=== PATIENT | male | born 1930 | race Caucasian/White ===

== ENCOUNTER 2017-05-12 18:18 | Inpatient (IN) ==
[2017-05-12] MEDS ORDERED: Ipratropium/Albuterol Neb 3 ML IH ONE (18:43)
[2017-05-12 19:05] LABS: Basophils % 0.5 %; Eosinophils # 0.1 K/mcL (0.0-0.6); Eosinophils % 0.8 %; Hematocrit 32.4 % (37.5-50.1); Hemoglobin 10.2 g/dL (12.9-16.9); Immature Granulocytes % 0.2 % (0-4); Lymphocytes # 0.6 K/mcL (0.6-4.6); Lymphocytes % 10.8 %; Mean Corpuscular HGB Conc 31.5 g/dL (31.6-35.5); Mean Corpuscular Hemoglobin 25.9 pg (28.0-33.3); Mean Corpuscular Volume 82.2 fL (83.0-100.0); Mean Platelet Volume 8.5 fL (9.4-12.4); Monocytes # 0.7 K/mcL (0.0-1.3); Monocytes % 12.1 %; Neutrophils # 4.5 K/mcL (1.6-8.9); Platelet Count 359 K/mcL (140-400); Red Blood Count 3.94 M/mcL (4.19-5.50); Red Cell Distribution Width 14.1 % (11.5-14.5); Segmented Neutrophils % 75.6 %
[2017-05-12 19:16] LABS: BUN/Creatinine Ratio 18 (6-26); Blood Urea Nitrogen 15 mg/dL (8-26); Calcium 8.7 mg/dL (8.6-10.8); Carbon Dioxide 25 mEq/L (19-29); Chloride 102 mEq/L (98-109); Glucose 113 mg/dL (70-99); Osmolality,Calculated 286 (280-300); Potassium 3.5 mEq/L (3.5-4.5); Sodium 137 mEq/L (136-145); eGFR For African Americans > 60 (> 60); eGFR For Non-African Americans > 60 (> 60)
[2017-05-12] MEDS ORDERED: methylPREDNISolone 125 MG in 0.9 % Sodium Chloride 100 ML IVPB ONE (20:54)
[2017-05-12 21:26] LABS: VBG HCO3 27.7 mEq/L (21-27); VBG PH 7.46 pH Units (7.32-7.42)
--- NOTE | 2017-05-12 21:43 | Emergency Department Note ---
Disposition Clinical Impression: Pulmonary fibrosis Disposition: Admitted As Inpatient [facility] Care Provider[facility] - Forms: ED Satisfaction Letter General Adult HPI - General Chief complaint: ED Shortness of Breath/Dyspnea Stated complaint: MERE Time Seen by Provider: 05/12/17 18:27 Source: patient, family Limitations: no limitations Nursing Notes Reviewed: Yes Vital Signs Reviewed: Yes - History of Present Illness HPI Narrative: 87-year-old male who presents with concern for dyspnea. 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 He admits to 3 days of progressive dyspnea. He presents with hypoxia, required supplemental oxygen, no wheezing or bronchospasm. He denies need for option at home. He has no former option requirements. He admits to some productive sputum with rust colored sputum. Pain Scale: 0 - Related Data Allergies Allergy/AdvReac Type Severity Reaction Status Date / Time No Known Allergies Allergy Verified 05/12/17 18:24 All systems ED: reviewed and negative except as stated. Past Medical History - Past Medical History Medical history: Reports: cancer, CVA - Social History Smoking Status: Never smoker Smokeless Tobacco Status: No Alcohol use: Reports: none Physical Exam - General Limitations: no limitations General appearance: alert, in no apparent distress - Head Head exam: atraumatic - Eye Eye exam: Present: normal appearance, PERRL - ENT ENT exam: normal exam, normal oropharynx - Neck Neck exam: Present: normal inspection, full ROM - Chest Chest inspection: Present: normal inspection - Respiratory Respiratory exam: Present: respiratory distress - Cardiovascular Cardiovascular exam: Present: regular rate, normal rhythm - Abdominal Exam Abdominal exam: Present: soft, Non-Tender - Male exam: Present: normal inspection - Extremities Exam Extremities exam: Present: normal inspection, full ROM - Expanded Lower Extremity Exam Hip/Pelvis exam: Present: normal inspection, full ROM Upper leg exam: Present: normal inspection, full ROM Neurovascular/Tendon exam: Present: normal capillary refill Gait: observed and normal, not tested/not observed - Back Exam Back exam: Present: normal inspection, full ROM - Neurological Exam Neurological exam: Present: alert, oriented X3, CN II-XII intact - Psychiatric Psychiatric exam: Present: normal affect, normal mood - Skin Skin exam: Present: warm, dry Course Vital Signs Temperature 97.7 F 05/12/17 18:24 Pulse Rate 101 05/12/17 18:24 Respiratory Rate 18 05/12/17 18:24 Blood Pressure 144/66 05/12/17 18:24 O2 Sat by Pulse Oximetry 88 05/12/17 18:24 Temperature 97.7 F 05/12/17 18:24 Pulse Rate 101 05/12/17 18:24 Respiratory Rate 16 05/12/17 19:40 Blood Pressure 144/66 05/12/17 18:24 O2 Sat by Pulse Oximetry 92 05/12/17 19:40 Oxygen Delivery Oxygen Delivery Room Air Medical Decision Making - MDM Narrative Medical decision making narrative: Male patient with hypoxia. CT scan shows massive fibrosis. Steroids, Levaquin given for possible superimposed infection. He was given bronchodilators without improvement. His respiratory rate is mildly increased. I will obtain a blood gas, basic laboratory analyses and proceed with admission to stepdown. 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 - Medical Records Medical records reviewed: Yes I reviewed the patient's medical records. - Lab Data Lab results reviewed: Yes I reviewed the patient's lab results. Result diagrams: 05/12/17 18:52 05/12/17 18:52 Lab Results 05/12/17 05/12/17 05/12/17 Range/Units 18:52 18:52 18:52 WBC 6.0 (4.3-11.1) K/mcL RBC 3.94 L (4.19-5.50) M/mcL Hgb 10.2 L (12.9-16.9) g/dL Hct 32.4 L (37.5-50.1) % MCV 82.2 L (83.0-100.0) fL MCH 25.9 L (28.0-33.3) pg MCHC 31.5 L (31.6-35.5) g/dL RDW 14.1 (11.5-14.5) % Plt Count 359 (140-400) K/mcL MPV 8.5 L (9.4-12.4) fL Immature Gran % 0.2 (0-4) % Seg Neutrophils % 75.6 % Lymphocytes % 10.8 % Monocytes % 12.1 % Eosinophils % 0.8 % Basophils % 0.5 % Neutrophils # 4.5 (1.6-8.9) K/mcL Lymphocytes # 0.6 (0.6-4.6) K/mcL Monocytes # 0.7 (0.0-1.3) K/mcL Eosinophils # 0.1 (0.0-0.6) K/mcL Basophils # 0.0 (0.0-0.2) K/mcL Immature Plt Fraction 1.0 L (1.1-6.1) % VBG pH (7.32-7.42) pH Units VBG pCO2 (41-51) mmHg VBG pO2 (25-40) mmHg VBG HCO3 (21-27) mEq/L Sodium 137 (136-145) mEq/L Potassium 3.5 (3.5-4.5) mEq/L Chloride 102 (98-109) mEq/L Carbon Dioxide 25 (19-29) mEq/L BUN 15 (8-26) mg/dL Creatinine 0.83 (0.72-1.25) mg/dL Est GFR ( Amer) > 60 (> 60) Est GFR (Non-Af Amer) > 60 (> 60) BUN/Creatinine Ratio 18 (6-26) Glucose 113 H (70-99) mg/dL Calculated Osmolality 286 (280-300) Lactic Acid 1.8 (0.5-2.2) mmol/L Calcium 8.7 (8.6-10.8) mg/dL Troponin I (0-0.03) ng/mL B-Natriuretic Peptide (0-100) pg/mL 05/12/17 05/12/17 05/12/17 Range/Units 18:52 18:52 20:38 WBC (4.3-11.1) K/mcL RBC (4.19-5.50) M/mcL Hgb (12.9-16.9) g/dL Hct (37.5-50.1) % MCV (83.0-100.0) fL MCH (28.0-33.3) pg MCHC (31.6-35.5) g/dL RDW (11.5-14.5) % Plt Count (140-400) K/mcL MPV (9.4-12.4) fL Immature Gran % (0-4) % Seg Neutrophils % % Lymphocytes % % Monocytes % % Eosinophils % % Basophils % % Neutrophils # (1.6-8.9) K/mcL Lymphocytes # (0.6-4.6) K/mcL Monocytes # (0.0-1.3) K/mcL Eosinophils # (0.0-0.6) K/mcL Basophils # (0.0-0.2) K/mcL Immature Plt Fraction (1.1-6.1) % VBG pH (7.32-7.42) pH Units VBG pCO2 (41-51) mmHg VBG pO2 (25-40) mmHg VBG HCO3 (21-27) mEq/L Sodium (136-145) mEq/L Potassium (3.5-4.5) mEq/L Chloride (98-109) mEq/L Carbon Dioxide (19-29) mEq/L BUN (8-26) mg/dL Creatinine (0.72-1.25) mg/dL Est GFR ( Amer) (> 60) Est GFR (Non-Af Amer) (> 60) BUN/Creatinine Ratio (6-26) Glucose (70-99) mg/dL Calculated Osmolality (280-300) Lactic Acid 1.1 (0.5-2.2) mmol/L Calcium (8.6-10.8) mg/dL Troponin I 0.02 (0-0.03) ng/mL B-Natriuretic Peptide 362 H (0-100) pg/mL 05/12/17 Range/Units 21:22 WBC (4.3-11.1) K/mcL RBC (4.19-5.50) M/mcL Hgb (12.9-16.9) g/dL Hct (37.5-50.1) % MCV (83.0-100.0) fL MCH (28.0-33.3) pg MCHC (31.6-35.5) g/dL RDW (11.5-14.5) % Plt Count (140-400) K/mcL MPV (9.4-12.4) fL Immature Gran % (0-4) % Seg Neutrophils % % Lymphocytes % % Monocytes % % Eosinophils % % Basophils % % Neutrophils # (1.6-8.9) K/mcL Lymphocytes # (0.6-4.6) K/mcL Monocytes # (0.0-1.3) K/mcL Eosinophils # (0.0-0.6) K/mcL Basophils # (0.0-0.2) K/mcL Immature Plt Fraction (1.1-6.1) % VBG pH 7.46 H (7.32-7.42) pH Units VBG pCO2 39 L (41-51) mmHg VBG pO2 44 H (25-40) mmHg VBG HCO3 27.7 H (21-27) mEq/L Sodium (136-145) mEq/L Potassium (3.5-4.5) mEq/L Chloride (98-109) mEq/L Carbon Dioxide (19-29) mEq/L BUN (8-26) mg/dL Creatinine (0.72-1.25) mg/dL Est GFR ( Amer) (> 60) Est GFR (Non-Af Amer) (> 60) BUN/Creatinine Ratio (6-26) Glucose (70-99) mg/dL Calculated Osmolality (280-300) Lactic Acid (0.5-2.2) mmol/L Calcium (8.6-10.8) mg/dL Troponin I (0-0.03) ng/mL B-Natriuretic Peptide (0-100) pg/mL
[2017-05-12] MEDS: Levofloxacin 500 MG/100 ML 500 MG/100 ML BAG IVPB ONE ×2 (22:24→22:39)
[2017-05-12] MEDS ORDERED: Naloxone 0.4 MG/ML INJ IVP PRN (22:33)
[2017-05-12] MEDS ORDERED: Acetaminophen 325 MG TABLET PO PRN (22:33)
--- NOTE | 2017-05-12 22:44 | Event Note ---
Date of Encounter: 05/12/17 Time of Encounter: 22:41 87-year-old male with a history of CVA and residual left-sided weakness (no concern for aspiration) and a 40 pack your smoking history worked in a coal mine for 20 years is not known to have any chronic lung pathology presents to the emergency room shortness of breath. For the past 2 weeks he was noted to be short of breath with any minimal exertion and he started having productive cough with rupa sputum. He is hypoxic respiratory failure on arrival to the emergency room. Requiring [address] scan showing findings concerning for chronic interstitial fibrosis (shale miner blasting's pneumoconiosis?). I feel that he definitely has an element of pneumonia superimposed, at least, so we started him on antibiotics for community acquired pneumonia. Would ask pulmonology service to see the patient. Consider follow-up CT after cure of pneumonia for evaluation of his chronic long pathology.
--- NOTE | 2017-05-13 00:02 | Internal Med History&Physical ---
Date of Encounter: 05/13/17 Time of Encounter: 23:58 Assessment and Plan (1) Pulmonary fibrosis Current visit: Yes Status: Acute Patient has changes on CT scan concerning for progressive massive fibrosis in the setting of underlying pneumoconiosis. 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 We will continue with supplemental oxygen. Patient received 1 dose of Solu-Medrol the emergency department, we will hold off further steroids at this time. We will consult pulmonology. Patient will likely need O2 qualification prior to discharge. (2) Pneumonia Current visit: Yes Status: Acute Patient has CT changes as discussed above with possible superimposed infection. An underlying pneumonia could be contributing to patient's symptoms so we will continue antibiotics for now. We will obtain sputum culture, strep and Legionella antigen. Qualifiers: Pneumonia type: due to unspecified organism Laterality: unspecified laterality Lung location: unspecified part of lung Qualified Code(s): J18.9 - Pneumonia, unspecified organism (3) Hypertension Current visit: Yes Status: Acute Patient mildly hypertensive on presentation. Likely related to difficulty breathing. We will continue home medications and continue to monitor patient's blood pressure. Qualifiers: Hypertension type: essential hypertension Qualified Code(s): I10 - Essential (primary) hypertension (4) History of CVA (cerebrovascular accident) Current visit: Yes Status: Acute Patient has residual left-sided deficits. No new complaints at this time. Continue aspirin, statin. (5) DVT prophylaxis Current visit: Yes Status: Acute Heparin 5000 units subcutaneous twice a day. Internal Medicine - H&P: HPI Chief complaint: Dyspnea Admitted From: Home Plans for Post Hospital Care: Home History of present illness: Mr. Read is a 87 year old male with history of hypertension, CVA presents with shortness of breath. Patient states that he has had progressive worsening shortness of breath over the last week. He states that this is particularly worse with exertion. He states that today he felt mildly short of breath at rest. He states that he has never had any issues like this before. He reports cough with small amount of rust-colored sputum. He reports occasional chest pain when taking a deep breath. She denies any fever, chills, abdominal pain, nausea, vomiting, diarrhea, dysuria, hematuria. He states that he has residual left-sided weakness from his stroke that is unchanged. He reports his recently had pneumonia approximately 3 weeks ago. He denies any other sick contacts. 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 He states he is not constantly exposed to coal dust but did have some exposures but did try to wear a mask when he was exposed. Denies any other occupational exposures. Patient has a [id number] history smoking 1 pack a day from age 14 to age 62 and quitting at that time due to his CVA. He does not a many pets at home. [place] and denies any mold or invasive animals including roaches or pigeons. Past Med Surg Social Fam HX - Past Medical History Medical history: cancer, CVA - Past Surgical History Surgical History: cancer surgery (Removal of bladder tumors) - Social History Smoking Status: Never smoker Smokeless Tobacco Status: No Alcohol use: none - Family History Father Hx Family Neurologic Disorders: Yes (CVA) Mother Living Status: Hx Family Cardiac Disorders: Yes Internal Medicine - H&P: Meds Atorvastatin [Lipitor] 40 mg PO HS 05/12/17 [History] Latanoprost [Xalatan] 1 drop BOTH EYES HS 05/12/17 [History] NIFEdipine XL (24 HR) [Procardia XL] 30 mg PO DAILY 05/12/17 [History] Allergies No Known Allergies Allergy (Verified 05/12/17 18:24) All Systems PM: A 10-system review of systems was performed and is negative for pertinent findings except as documented above in the HPI. - Constitutional Constitutional: no chills, no fever(s) - EENT Eyes: no blurry vision, no change in vision Nose, mouth and throat: no sinus pain, no sinus pressure - Cardiovascular Cardiovascular ROS IM: dyspnea, dyspnea on exertion, no chest pain, no edema, no lightheadedness, no syncope - Respiratory Respiratory: cough, dyspnea, hemoptysis, dyspnea on exertion, wheezing, chest congestion, change in phlegm color - Gastrointestinal Gastrointestinal: no abdominal pain, no diarrhea, no nausea, no vomiting - Genitourinary Genitourinary ROS male: no dysuria, no hematuria - Musculoskeletal Musculoskeletal ROS IM: no arthralgias, no numbness, no tingling - Integumentary Integumentary IM: no erythema, no new lesions - Neurological Neurological ROS: focal weakness (Chronic), no dizziness, no numbness, no weakness - Psychiatric Psychiatric: no anxiety, no depression - Endocrine Endocrine IM: no polydipsia, no polyuria - Hematologic/Lymphatic Hematologic/Lymphatic: no easy bleeding, no easy bruising, no lymphadenopathy - Constitutional Vitals: Temp Pulse Resp BP Pulse Ox 97.8 F 105 24 164/69 91 05/12/17 23:13 05/12/17 23:13 05/12/17 23:13 05/12/17 23:13 05/12/17 23:13 General appearance: Present: A&O X 3, pleasant, answers questions appropriately - Head Head exam: Present: atraumatic, normal inspection, normocephalic - Eye Eye exam: Present: EOMI, PERRL - ENT ENT exam: Present: mucous membranes moist - Neck Neck exam general surgery: Present: full ROM. Absent: nuchal rigidity - Respiratory Additional comments: Diffuse fine crackles bilaterally, more pronounced in the bases. Coarse breath sounds present. Occasional scattered wheeze noted on expiration. Mild conversational dyspnea is present - Cardiovascular Cardiovascular exam: Present: tachycardia (Regular). Absent: gallop, rubs, systolic murmur - GI/Abdominal GI/Abdominal exam: Present: normal bowel sounds, soft. Absent: distended, tenderness - Extremities Exam Extremities exam: Present: pedal edema (Trace on the left), warm. Absent: tenderness - Neurological Exam Neurological exam: Present: alert, CN II-XII intact, oriented X3 Additional comments: Patient has 4 out of 5 strength in the left lower and left upper extremity - Skin Skin exam: Present: dry, intact, warm Internal Med - H&P Results - Labs CBC & Chem 7: 05/12/17 18:52 05/12/17 18:52
[2017-05-13] MEDS: Ipratropium/Albuterol Neb 3 ML IH SCH ×6 (00:06→20:17)
[2017-05-13 05:46] LABS: BUN/Creatinine Ratio 17 (6-26); Blood Urea Nitrogen 15 mg/dL (8-26); Calcium 8.9 mg/dL (8.6-10.8); Carbon Dioxide 20 mEq/L (19-29); Chloride 104 mEq/L (98-109); Glucose 186 mg/dL (70-99); Osmolality,Calculated 292 (280-300); Potassium 3.3 mEq/L (3.5-4.5); Sodium 138 mEq/L (136-145); eGFR For African Americans > 60 (> 60); eGFR For Non-African Americans > 60 (> 60)
[2017-05-13 05:56] LABS: Basophils % 0.3 %; Hematocrit 33.5 % (37.5-50.1); Hemoglobin 10.4 g/dL (12.9-16.9); Immature Granulocytes % 0.3 % (0-4); Lymphocytes # 0.7 K/mcL (0.6-4.6); Lymphocytes % 11.3 %; Mean Corpuscular Hemoglobin 26.3 pg (28.0-33.3); Mean Corpuscular Volume 84.6 fL (83.0-100.0); Mean Platelet Volume 8.9 fL (9.4-12.4); Monocytes # 0.1 K/mcL (0.0-1.3); Monocytes % 1.4 %; Platelet Count 340 K/mcL (140-400); Red Blood Count 3.96 M/mcL (4.19-5.50); Red Cell Distribution Width 14.3 % (11.5-14.5); Segmented Neutrophils % 86.7 %
[2017-05-13] MEDS: *HR* Heparin 5,000 UNIT/ML VIAL SQ SCH ×2 (06:25→17:08)
[2017-05-13] MEDS ORDERED: Vancomycin 1,000 MG in D5% in Water 250 ML IVPB SCH ×2 (08:00)
[2017-05-13] MEDS ORDERED: Piperacillin/Tazobactam 3.375 GM in D5% in Water (Mini-Bag+) 100 ML IVPB SCH (08:00)
[2017-05-13] MEDS: Budesonide/Formoterol 160/4.5 MDI IH SCH ×2 (08:06→20:17)
[2017-05-13] MEDS ORDERED: *HR* Midazolam HCl 5 MG/5 ML VIAL IVP ONE (10:19)
[2017-05-13] MEDS ORDERED: Lidocaine Viscous Oral Soln 15 ML SOLUTION ONE (10:20)
[2017-05-13] MEDS ORDERED: *HR* FentaNYL (PF) 100 MCG/2 ML VIAL ONE (10:20)
[2017-05-13] MEDS ORDERED: *HR* FentaNYL (PF) 100 MCG/2 ML VIAL IVP PRN (10:33)
[2017-05-13] MEDS ORDERED: Tetracaine/Benzocaine/Butamben 200MG/SPRAY (100SPY/BOT) MM ONE (10:33)
[2017-05-13] MEDS ORDERED: *HR* Midazolam HCl 5 MG/5 ML VIAL IVP PRN (10:33)
[2017-05-13] MEDS ORDERED: Albuterol 2.5 MG/3 ML NEBULIZER IH ONE (10:33)
[2017-05-13] MEDS ORDERED: *HR* EPINEPHrine 1 MG/10 ML SYRINGE INTRATRACH PRN (10:33)
[2017-05-13] MEDS ORDERED: Lidocaine Viscous Oral Soln 15 ML SOLUTION MM ONE (10:33)
--- NOTE | 2017-05-13 10:35 | Pre-Sedation Evaluation ---
Pre-sedation evaluation - Pre-sedation checklist Date of procedure: 05/13/17 Procedure: Bronchoscopy Recent Vitals: Last Vital Signs Temp 97.6 F 05/13/17 10:32 Pulse 113 05/13/17 10:32 Resp 18 05/13/17 10:32 BP 146/70 05/13/17 10:32 Pulse Ox 93 05/13/17 10:32 H&P (including ROS) documented in medical record: Yes Previous reaction to sedatives/anesthetics: No Dietary Status: unknown Dentition: dentures removed Possible difficult airway: No ASA Classification *see protocol: CLASS III-Severe systemic disease Plan of Care: Pt appropriate candidate for procedure/moderate/conscious sedation , Risks/benefits of procedure/sedation discussed w/ patient/family
[2017-05-13] MEDS ORDERED: 0.9 % Sodium Chloride 1,000 ML IVC SCH (10:45)
[2017-05-13] MEDS ORDERED: Ipratropium/Albuterol Neb 3 ML ONE (11:40)
--- NOTE | 2017-05-13 13:02 | Internal Med Progress Note ---
Date of Encounter: 05/13/17 Time of Encounter: 12:20 - Assessment and plan (1) Pulmonary fibrosis Current Visit: Yes Status: Acute Assessment and plan: Patient presented with 3 week onset of shortness of breath, cough with sputum production and wheezing. Exam reveals diffuse wheezing and rhonchi. CT scan reveals evidence of interstitial lung disease with possible superimposed infectious/intermittent lesions. Patient evaluated by pulmonology and underwent bronchoscopy which revealed thick , carlisle/brown secretions throughout the tracheal bronchial tree. Patient may have cryptogenic organizing pneumonia versus acute viral infection superimposed on long-standing pulmonary fibrosis. Patient will be admitted to inpatient status. Expected to be in the hospital for at least 2 midnights. Expected discharge disposition is to home. High risk due to risk of worsening respiratory failure and risk of sepsis. (2) Respiratory failure Current Visit: Yes Status: Acute Assessment and plan: Related to pulmonary process which may be interstitial lung disease versus acute inflammatory etiology. Cannula oxygen supplementation. Pulmonology on board. Qualifiers: Chronicity: acute Respiratory failure complication: hypoxia Qualified Code(s): J96.01 - Acute respiratory failure with hypoxia (3) Pneumonia Current Visit: Yes Status: Suspected Assessment and plan: Very low suspicion for pneumonia. Patient denies any history of fever or chills. He does not have a leukocytosis. Patient has been afebrile during hospital stay. CT scan does not reveal definite consolidation but reveals masslike lesions. Will hold off antibiotics and monitor the patient. Will follow pulmonology recommendations. We will check ANCA, TIMOTHY, ESR and CRP. Qualifiers: Pneumonia type: due to unspecified organism Laterality: unspecified laterality Lung location: unspecified part of lung Qualified Code(s): J18.9 - Pneumonia, unspecified organism (4) Hypertension Current Visit: Yes Status: Chronic Assessment and plan: Controlled blood pressure. Continue current medications. Qualifiers: Hypertension type: essential hypertension Qualified Code(s): I10 - Essential (primary) hypertension (5) History of CVA (cerebrovascular accident) Current Visit: No Status: Chronic - Subjective Interval history: 87-year-old male who presented to the emergency room due to 3 weeks of shortness of breath. Patient's CT scan revealed findings suspicious for interstitial lung disease. He has been admitted and pulmonology consulted. He underwent bronchoscopy by pulmonology this morning. He had bronchioloalveolar lavage. Currently, patient states that his breathing is much better. He continues to report wheezing and cough productive of sputum. He denies blood in the sputum or hematuria. He continues to report shortness of breath. He denies any chest pain. He reports feeling lightheaded with activity or standing up. He denies any nausea, vomiting, diarrhea or constipation. He denies any other urinary symptoms. Past medical, surgical, family and social history reviewed from history and physical dated 05/12/2017. No changes.10 systems have been reviewed and are negative except as mentioned in the history of present illness. - Constitutional Vitals: Temp Pulse Resp BP Pulse Ox 97.6 F 113 18 146/70 93 05/13/17 11:40 05/13/17 11:40 05/13/17 11:40 05/13/17 11:40 05/13/17 11:40 General appearance: Present: A&O X 3, pleasant, answers questions appropriately Exam: Gen.: Lying in bed. [id number] distress. Chest: Bilateral diffuse wheezing and rhonchi present. CVS: First and second heart sounds present. No murmurs, rubs or gallops. Abdomen: Soft, nontender, nondistended. Bowel sounds present. No hepatosplenomegaly. Skin: No decubitus ulcers appreciated. Eyes: Pupils equal, round and reactive to light. Extraocular muscles intact. ENT: Moist mucous membranes. No oropharyngeal erythema or discharge. STEWARD/STEWARDESS DECK: No focal neuro deficits present. Psychiatric: Alert, awake and oriented to time, place and person. Lymphatic system: No lymphadenopathy appreciated Internal Medicine: Result - Labs CBC & Chem 7: 05/13/17 04:19 05/13/17 04:19 Labs: Short CBC 05/13/17 Range/Units 04:19 WBC 5.8 (4.3-11.1) K/mcL Hgb 10.4 L (12.9-16.9) g/dL Hct 33.5 L (37.5-50.1) % Plt Count 340 (140-400) K/mcL Neutrophils # 5.0 (1.6-8.9) K/mcL BMP 05/13/17 04:19 Sodium 138 Potassium 3.3 L Chloride 104 Carbon Dioxide 20 BUN 15 Creatinine 0.87 Glucose 186 H Calcium 8.9 - Impressions Bronchoscopy report reviewed-multiple pulmonary nodules seen. Suspicious left and right upper lobe lesions present. Bronchial alveolar lavage performed. Infiltrate was seen. Notable, and/brown, thick secretions were found throughout the tracheobronchial tree. Acute mucosal inflammation was visualized throughout the tracheobronchial tree. Brushings were obtained. Consult Discharge Plan - Plan [facility]errals: [facility] [Primary Care Provider] -
--- NOTE | 2017-05-13 16:21 | Electrocardiograph Report ---
[place] [id number] Test Date: 2017-05-12 Pat Name: Julio C Read Department: 104 Room: 2NE22 Gender: M [employer] Vice President: JUDY : 1930 Requested By: Linden Jamison Order Number: [id number] Reading MD: Shane Martell Measurements Intervals Donovan Rate: 94 P: 18 AL: 217 QRS: -34 QRSD: 150 T: 22 QT: 401 QTc: 453 Interpretive Statements SINUS RHYTHM WITH FIRST DEGREE AV BLOCK MARKED LEFT AXIS DEVIATION RIGHT BUNDLE BRANCH BLOCK Electronically Signed On 05-13-2017 16:19:39 EDT by Shane Martell
[2017-05-13] MEDS: NIFEdipine XL (24 HR) 30 MG TAB.ER.24 PO SCH (16:50)
[2017-05-13 16:55] LABS: Appearance of Body Fluid Slightly Hazy (Clear); Volume of Body Fluid 15 mL
[2017-05-13] MEDS: Aspirin Enteric Coated 81 MG Tablet PO SCH (17:08)
[2017-05-13] MEDS: Ampicillin/Sulbactam 3,000 MG in 0.9 % Sodium Chloride Mini Bag 100 ML IVPB SCH ×2 (17:09→23:46)
[2017-05-13 17:12] LABS: Appearance of Body Fluid Cloudy (Clear); Volume of Body Fluid 10 mL
--- NOTE | 2017-05-13 18:01 | Pulmonology Consult Note ---
Date of Encounter: 05/13/17 Time of Encounter: 08:30 Assessment and Plan (1) Acute respiratory failure with hypoxia Current Visit: Yes Status: Acute This is due to multifocal pneumonia and suspect this is could be an atypical infection. Keep SPO2 around 90%. (2) Pneumonia Current Visit: Yes Status: Acute Clinical picture suspicious for community-acquired pneumonia and atypical infection in the differential diagnosis. Offered bronchoscopy and explained all the risks, alternative, benefits of the procedure to the patient and the daughter at the bedside and they both agreed to have it done. Continue broad- spectrum antibiotics. Qualifiers: Pneumonia type: due to unspecified organism Laterality: unspecified laterality Lung location: unspecified part of lung Qualified Code(s): J18.9 - Pneumonia, unspecified organism (3) Pulmonary fibrosis Current Visit: Yes Status: Suspected Suspect underlying pulmonary fibrosis from reviewing the CAT scan, however due to the superimposed possibility of the pneumonia the picture is not entirely clear and would not recommend to repeat the CT chest whenever pneumonia resolves. Thank you very much for the consultation we will continue follow-up. History of Present Illness Consult date: 05/13/17 Requesting physician: Adryan Poe Reason for consult: dyspnea Chief complaint: Dyspnea History of present illness: Since very pleasant 87-year-old male with multiple medical problems who presented to the hospital with shortness of breath which has been progressively worsen over past few weeks according to the daughter at the bedside who gives almost all day history. Patient has productive cough with small amount of rust- colored sputum and denies any fever, chills or hemoptysis. There is no wheezing. Denies any aspiration. Denies any contact with patient with tuberculosis. Patient is a former smoker who quit smoking long time ago. Patient also has exposure to coal dust. He denies any rash or hematuria. Past Med Surg Social Fam HX - Past Medical History Medical history: cancer, CVA - Past Surgical History Surgical History: cancer surgery (Removal of bladder tumors) - Social History Smoking Status: Never smoker Packs per day: 1 Smokeless Tobacco Status: No Alcohol use: none Drug use: none - Family History Father Living Status: Age at : 74 Cause of : cva Mother Living Status: Age at : 86 Cause of : cva Medications and Allergies Atorvastatin [Lipitor] 40 mg PO HS 05/12/17 [History] Latanoprost [Xalatan] 1 drop BOTH EYES HS 05/12/17 [History] NIFEdipine XL (24 HR) [Procardia XL] 30 mg PO DAILY 05/12/17 [History] Allergies No Known Allergies Allergy (Verified 05/12/17 18:24) All Systems: A 10-system review of systems was performed and is negative for pertinent findings except as documented above in the HPI. Physical Examination Vital Signs: Vital Signs, Last 4 Hours Temp Pulse Resp BP Pulse Ox 05/13/17 16:03 97.7 F 110 18 97/73 92 05/13/17 15:49 18 91 General appearance: appears uncomfortable Eyes: nonicteric ENT: oropharynx moist Mallampati (class): 2 Neck: supple, no lymphadenopathy Effort: mildly labored Inspection: normal Auscultation: bilateral: rhonchi Percussion: bilateral: not dull Cardiovascular: regular rate and rhythm Gastrointestinal: normoactive bowel sounds, non-distended Extremities: no cyanosis, no edema normal mental status, non-focal exam mood appropriate Results - Laboratory Findings CBC and BMP: 05/13/17 04:19 05/13/17 04:19 Abnormal lab findings: Abnormal lab results RBC 3.96 M/mcL (4.19-5.50) L 05/13/17 04:19 Hgb 10.4 g/dL (12.9-16.9) L 05/13/17 04:19 Hct 33.5 % (37.5-50.1) L 05/13/17 04:19 MCH 26.3 pg (28.0-33.3) L 05/13/17 04:19 MCHC 31.0 g/dL (31.6-35.5) L 05/13/17 04:19 MPV 8.9 fL (9.4-12.4) L 05/13/17 04:19 Immature Plt Fraction 1.0 % (1.1-6.1) L 05/12/17 18:52 ESR >= 130 mm/hr (0-10) H 05/13/17 13:03 VBG pH 7.46 pH Units (7.32-7.42) H 05/12/17 21:22 VBG pCO2 39 mmHg (41-51) L 05/12/17 21:22 VBG pO2 44 mmHg (25-40) H 05/12/17 21:22 VBG HCO3 27.7 mEq/L (21-27) H 05/12/17 21:22 Potassium 3.3 mEq/L (3.5-4.5) L 05/13/17 04:19 Glucose 186 mg/dL (70-99) H 05/13/17 04:19 C-Reactive Protein 41 mg/L (Less than 5) H 05/13/17 13:03 B-Natriuretic Peptide 362 pg/mL (0-100) H 05/12/17 18:52 Fluid Appearance Cloudy (Clear) A 05/13/17 14:44 - Diagnostic Findings CT scan - chest: report reviewed, image reviewed - Clinical Findings Intake & Output: Intake & Output 05/13/17 05/13/17 05/13/17 07:59 15:59 23:59 Output Total 100 / 100 Balance -100 / -100 Consult Discharge Plan - Plan [facility]: [facility] [Primary Care Provider[facility] -
[2017-05-13] MEDS: Latanoprost 2.5 ML BOTTLE BOTH EYES SCH (20:05)
[2017-05-13] MEDS ORDERED: Levofloxacin 750 MG/150 ML 750 MG/150 ML BAG IVPB SCH (21:00)
[2017-05-13] MEDS: Ondansetron 4 MG/2 ML VIAL IVP PRN (22:35)
[2017-05-13] MEDS ORDERED: Levalbuterol Neb 1.25 MG/3 ML IH ONE (23:45)
[2017-05-14] MEDS: Ipratropium/Albuterol Neb 3 ML IH SCH ×6 (00:03→23:05)
[2017-05-14 05:03] LABS: Basophils % 0.1 %; Hematocrit 30.9 % (37.5-50.1); Hemoglobin 9.8 g/dL (12.9-16.9); Immature Granulocytes % 0.7 % (0-4); Lymphocytes # 0.4 K/mcL (0.6-4.6); Lymphocytes % 1.8 %; Mean Corpuscular HGB Conc 31.7 g/dL (31.6-35.5); Mean Corpuscular Hemoglobin 26.8 pg (28.0-33.3); Mean Corpuscular Volume 84.4 fL (83.0-100.0); Mean Platelet Volume 9.2 fL (9.4-12.4); Monocytes % 4.2 %; Neutrophils # 22.2 K/mcL (1.6-8.9); Platelet Count 323 K/mcL (140-400); Red Blood Count 3.66 M/mcL (4.19-5.50); Red Cell Distribution Width 14.6 % (11.5-14.5); Segmented Neutrophils % 93.2 %
[2017-05-14 05:18] LABS: Alanine Aminotransferase 21 Units/L (0-55); Albumin 2.9 g/dL (3.5-5.0); Albumin/Globulin Ratio 0.6 (1.1-2.2); Alkaline Phosphatase 107 Units/L (38-126); Aspartate Amino Transferase 23 Units/L (5-34); BUN/Creatinine Ratio 26 (6-26); Bilirubin,Total 0.4 mg/dL (0.2-1.2); Blood Urea Nitrogen 24 mg/dL (8-26); Carbon Dioxide 23 mEq/L (19-29); Chloride 107 mEq/L (98-109); Globulin 4.5 g/dL (2.4-3.5); Glucose 157 mg/dL (70-99); Osmolality,Calculated 295 (280-300); Potassium 3.8 mEq/L (3.5-4.5); Sodium 139 mEq/L (136-145); Total Protein 7.4 g/dL (6.0-8.3); eGFR For African Americans > 60 (> 60); eGFR For Non-African Americans > 60 (> 60)
[2017-05-14] MEDS: Ampicillin/Sulbactam 3,000 MG in 0.9 % Sodium Chloride Mini Bag 100 ML IVPB SCH (05:23)
[2017-05-14] MEDS: *HR* Heparin 5,000 UNIT/ML VIAL SQ SCH ×2 (05:24→17:45)
[2017-05-14 05:41] LABS: Hypersegmented Neutrophils Present (Not Present); Platelet Estimate Normal (Normal)
[2017-05-14] MEDS ORDERED: Ipratropium/Albuterol Neb 3 ML IH PRN (07:47)
[2017-05-14] MEDS: Budesonide/Formoterol 160/4.5 MDI IH SCH ×2 (07:54→20:02)
[2017-05-14] MEDS ORDERED: Ipratropium Neb 0.5 MG NEBULIZER IH SCH (08:00)
[2017-05-14] MEDS ORDERED: Levofloxacin 750 MG/150 ML 750 MG/150 ML BAG IVPB SCH (09:00)
[2017-05-14] MEDS: Aspirin Enteric Coated 81 MG Tablet PO SCH (09:08)
[2017-05-14] MEDS: NIFEdipine XL (24 HR) 30 MG TAB.ER.24 PO SCH (09:08)
[2017-05-14] MEDS ORDERED: methylPREDNISolone 125 MG/2 ML VIAL IVP ONE (09:13)
[2017-05-14] MEDS ORDERED: methylPREDNISolone 125 MG/2 ML VIAL ONE (09:15)
--- NOTE | 2017-05-14 09:35 | Internal Med Progress Note ---
Date of Encounter: 05/14/17 Time of Encounter: 09:00 - Assessment and plan (1) Pneumonia Current Visit: Yes Status: Acute Assessment and plan: Patient was downgraded from Zosyn to Unasyn yesterday. He has had worsening respiratory function over the night. We will switch back his antibiotics to Zosyn. We will add Levaquin for atypical coverage. Flutter valve for clearance of secretions. Guaifenesin was added overnight. Patient is high risk due to risk of sepsis, worsening respiratory failure which may require intubation and mechanical ventilation. Qualifiers: Pneumonia type: due to unspecified organism Laterality: bilateral Lung location: unspecified part of lung Qualified Code(s): J18.9 - Pneumonia, unspecified organism (2) Pulmonary fibrosis Current Visit: Yes Status: Suspected Assessment and plan: Pulmonology on board. Status post-bronchoscopy on 05/13/2017. We will follow pulmonology conditions. Continue breathing treatments. (3) Respiratory failure Current Visit: Yes Status: Acute Assessment and plan: Worsening respiratory failure requiring a higher amount of oxygen to maintain his saturations. At high risk of intubation and mechanical ventilation. Pulmonology on board. Qualifiers: Chronicity: acute Respiratory failure complication: hypoxia Qualified Code(s): J96.01 - Acute respiratory failure with hypoxia (4) Hypertension Current Visit: Yes Status: Chronic Assessment and plan: Controlled blood pressure. Continue current medications. Qualifiers: Hypertension type: essential hypertension Qualified Code(s): I10 - Essential (primary) hypertension (5) History of CVA (cerebrovascular accident) Current Visit: No Status: Chronic - Subjective Interval history: 87-year-old male who presented to the emergency room due to 3 weeks of shortness of breath. Patient's CT scan revealed findings suspicious for interstitial lung disease. He has been admitted and pulmonology consulted. He underwent bronchoscopy by pulmonology yesterday morning. He had bronchioloalveolar lavage. Overnight, patient had worsening respiratory status with increasing oxygen requirements to about 5 L/m. He has also had worsening wheezing. He states that he is not able to bring up the sputum although he feels like he has secretions in there that he needs to get rid of. He reports worsening shortness of breath. He is accompanied by his daughter who states that he is worse than when he initially was interested to the emergency room 2 days ago. He denies any chest pain. He still reports lightheadedness on standing up. - Constitutional Vitals: Temp Pulse Resp BP Pulse Ox 97.8 F 109 22 138/87 90 05/14/17 07:17 05/14/17 07:17 05/14/17 07:57 05/14/17 07:17 05/14/17 07:57 General appearance: Present: A&O X 3, pleasant, severe distress, answers questions appropriately Exam: Gen.: Lying in bed. Moderate to severe distress. Chest: Bilateral diffuse crepitations, rhonchi and wheezing present. Using accessory muscles of respiration. CVS: First and second heart sounds present. No murmurs, rubs or gallops. Tachycardia present. Abdomen: Soft, nontender, nondistended. Bowel sounds present. No hepatosplenomegaly. Skin: No decubitus ulcers appreciated. Internal Medicine: Result - Labs CBC & Chem 7: 05/14/17 04:17 05/14/17 04:17 Labs: Short CBC 05/14/17 Range/Units 04:17 WBC 23.8 H D (4.3-11.1) K/mcL Hgb 9.8 L (12.9-16.9) g/dL Hct 30.9 L (37.5-50.1) % Plt Count 323 (140-400) K/mcL Neutrophils # 22.2 H (1.6-8.9) K/mcL BMP 05/14/17 04:17 Sodium 139 Potassium 3.8 Chloride 107 Carbon Dioxide 23 BUN 24 Creatinine 0.94 Glucose 157 H Calcium 9.0 Liver Function 05/14/17 Range/Units 04:17 Total Bilirubin 0.4 (0.2-1.2) mg/dL AST 23 (5-34) Units/L ALT 21 (0-55) Units/L Alkaline Phosphatase 107 (38-126) Units/L Albumin 2.9 L (3.5-5.0) g/dL - Impressions Impressions Chest X-Ray 05/14/17 04:36 IMPRESSION: Right basilar atelectasis or pneumonia on a background of chronic interstitial lung disease. D/ / Kvng Burch MD / Kvng Burch MD Interpreting Provider: Kvng Burch MD - Diagnostic Studies Chest x-ray Status: image reviewed by me (Extensive bilateral airspace disease present. Developing right lower lobe infiltrate suspicious for pneumonia.) Consult Discharge Plan - Plan Referrals: [facility],PCP [Primary Care Provider] - 05/19/17 2:00 pm
[2017-05-14] MEDS: Ipratropium/Albuterol Neb 3 ML IH PRN (09:51)
[2017-05-14] MEDS: Ondansetron 4 MG/2 ML VIAL IVP PRN ×2 (10:38→23:44)
[2017-05-14] MEDS ORDERED: *HR* Morphine 2 MG/ML SYRINGE ONE (11:09)
[2017-05-14] MEDS ORDERED: *HR* Morphine 2 MG/ML SYRINGE IVP ONE ×2 (11:10→11:23)
[2017-05-14] MEDS ORDERED: *HR* Midazolam HCl 5 MG/5 ML VIAL IVP ONE (11:10)
[2017-05-14] MEDS ORDERED: *HR* Midazolam HCl 2 MG/2 ML VIAL ONE (11:11)
--- NOTE | 2017-05-14 11:22 | Pulmonology Progress Note ---
<Kaleigh Lucero - Last Filed: 05/14/17 11:33> Date of Encounter: 05/14/17 Time of Encounter: 11:22 Assessment and Plan (1) Acute respiratory failure with hypoxia Current Visit: Yes Status: Acute Patient was initially admitted to the hospitalist service for shortness of breath and got about 3 weeks. Does have a history of pulmonary fibrosis. Today his respiratory status decreased. His oxygen saturation was noted to be in the 70s. He was placed on heliox via nonrebreather. He was still in significant respiratory distress so the decision was made to move the patient to ICU. Patient was tripoding and using accessory muscles to breathe. He appeared very anxious He did have rhonchorous breath sounds throughout. He has moved ICU to be placed on BiPAP. On BiPAP the patient's oxygen saturation is staying in the middle 90s. He was given some Versed and morphine 2 decrease his agitation. Patient does have a chest x-ray that appears that there may be some right basilar pneumonia. His bronchoscopy showed normal respiratory jairon. This was performed yesterday. Did have many gram-positive cocci and few gram-negative rods on Gram stain. The patient is currently on Zosyn and Levaquin for this. He is also getting Solu-Medrol 80 mg every 8. I spoke with the patient's family. They state the patient's wishes would be to be intubated for a trial. If necessary. After patient was given medication and placed on the BiPAP he states that he is no longer in respiratory distress. Plan: BiPAP. Heliox as needed Continue antibiotics Zosyn and Levaquin Continue Solu-Medrol 80 mg Subcutaneous heparin for DVT prophylaxis Continue patient's diet (2) Pneumonia Current Visit: Yes Status: Acute Plan as above Qualifiers: Pneumonia type: due to unspecified organism Laterality: right Lung location: lower lobe of lung Qualified Code(s): J18.1 - Lobar pneumonia, unspecified organism (3) Pulmonary fibrosis Current Visit: Yes Status: Suspected Plan as above (4) History of CVA (cerebrovascular accident) Current Visit: No Status: Chronic Chronic plan as above (5) DVT prophylaxis Current Visit: Yes Status: Acute Subjective Interval history: Patient was initially admitted to the hospitalist service for shortness of breath and got about 3 weeks. Does have a history of pulmonary fibrosis. Today his respiratory status decreased. His oxygen saturation was noted to be in the 70s. He was placed on heliox via nonrebreather. He was still in significant respiratory distress so the decision was made to move the patient to ICU. He has moved ICU to be placed on BiPAP. On BiPAP the patient's oxygen saturation is staying in the middle 90s. He was given some Versed and morphine 2 decrease his agitation. Patient does have a chest x-ray that appears that there may be some right basilar pneumonia. His bronchoscopy showed normal respiratory jairon. This was performed yesterday. Did have many gram-positive cocci and few gram-negative rods on Gram stain. The patient is currently on Zosyn and Levaquin for this. He is also getting Solu-Medrol 80 mg every 8. Objective PUL Vital signs: Last Vital Signs Temp 97.8 F 05/14/17 07:17 Pulse 109 05/14/17 07:17 Resp 24 05/14/17 09:52 BP 138/87 05/14/17 07:17 Pulse Ox 89 05/14/17 10:40 General appearance: other (Appears in significant respiratory distress.) Eyes: nonicteric ENT: oropharynx moist Neck: supple Effort: very labored Auscultation: bilateral: rhonchi Cardiovascular: other (Sinus tachycardia) Gastrointestinal: normoactive bowel sounds, soft, non-tender, non-distended Integumentary: normal Extremities: no cyanosis, no edema, no clubbing, pink and warm, pulses normal Musculoskeletal: no deformities, other (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.) Gait: other (Patient tripoding) normal mental status, non-focal exam anxious Results - Laboratory Findings CBC and BMP: 05/14/17 04:17 05/14/17 04:17 Abnormal lab findings: Abnormal lab results WBC 23.8 K/mcL (4.3-11.1) H D 05/14/17 04:17 RBC 3.66 M/mcL (4.19-5.50) L 05/14/17 04:17 Hgb 9.8 g/dL (12.9-16.9) L 05/14/17 04:17 Hct 30.9 % (37.5-50.1) L 05/14/17 04:17 MCH 26.8 pg (28.0-33.3) L 05/14/17 04:17 RDW 14.6 % (11.5-14.5) H 05/14/17 04:17 MPV 9.2 fL (9.4-12.4) L 05/14/17 04:17 Neutrophils # 22.2 K/mcL (1.6-8.9) H 05/14/17 04:17 Lymphocytes # 0.4 K/mcL (0.6-4.6) L 05/14/17 04:17 Hypersegmented Neuts Present (Not Present) A 05/14/17 04:17 Immature Plt Fraction 1.0 % (1.1-6.1) L 05/12/17 18:52 ESR >= 130 mm/hr (0-10) H 05/13/17 13:03 VBG pH 7.46 pH Units (7.32-7.42) H 05/12/17 21:22 VBG pCO2 39 mmHg (41-51) L 05/12/17 21:22 VBG pO2 44 mmHg (25-40) H 05/12/17 21:22 VBG HCO3 27.7 mEq/L (21-27) H 05/12/17 21:22 Glucose 157 mg/dL (70-99) H 05/14/17 04:17 POC Glucose 133 (58-89) H 05/14/17 11:06 C-Reactive Protein 41 mg/L (Less than 5) H 05/13/17 13:03 B-Natriuretic Peptide 362 pg/mL (0-100) H 05/12/17 18:52 Albumin 2.9 g/dL (3.5-5.0) L 05/14/17 04:17 Globulin 4.5 g/dL (2.4-3.5) H 05/14/17 04:17 Albumin/Globulin Ratio 0.6 (1.1-2.2) L 05/14/17 04:17 Fluid Appearance Cloudy (Clear) A 05/13/17 14:44 - Microbiology Findings Microbiology Findings: Microbiology, Last 48 Hours 05/13/17 14:44 Respiratory Culture - Preliminary Right Upper Lobe Lung Normal upper respiratory tract jairon. No apparent pathogens isolated. 05/13/17 14:44 Gram Stain - Final Left Upper Lobe Lung Respiratory Culture - Preliminary Normal upper respiratory tract jairon. No apparent pathogens isolated. 05/13/17 14:44 Gram Stain - Final Right Upper Lobe Lung - Diagnostic Findings Additional studies: Chest CT 05/12/17 18:44 IMPRESSION: 1. Diffuse bilateral pulmonary interstitial disease with a chronic appearance. There is diffuse parenchymal distortion and scarring with scattered small nodular opacities and larger irregular conglomerate masslike opacifications in the upper lobes. Findings are suggestive of progressive massive fibrosis in the setting of underlying pneumoconiosis. A superimposed acute infectious or inflammatory process is not excluded. 2. Trace bilateral pleural effusions. 3. Coronary artery atherosclerotic vascular disease. 4. Mildly enlarged main pulmonary artery as can be seen with pulmonary arterial hypertension. 5. Cholelithiasis. 6. Moderate age-indeterminate T9 vertebral body compression deformity. If clinically indicated further evaluation could be obtained with MRI. D/ / Markos Garduno MD / Markos Garduno MD Interpreting Provider: Markos Garduno MD Chest X-Ray 05/14/17 04:36 IMPRESSION: Right basilar atelectasis or pneumonia on a background of chronic interstitial lung disease. D/ / Kvng Burch MD / Kvng Burch MD Interpreting Provider: Kvng Burch MD - Clinical Findings Intake & Output: Intake & Output 05/13/17 05/14/17 05/14/17 23:59 07:59 15:59 Intake Total 100 / 100 200 / 200 240 / 240 Output Total 100 / 100 Balance 0 / 0 200 / 200 240 / 240 Weight 75.4 kg Consult Discharge Plan - Plan [facility]: [facility] [Primary Care Provider[facility] - 05/19/17 2:00 pm <Xuan Elizondo - Last Filed: 05/14/17 16:24> Date of Encounter: 05/14/17 Assessment and Plan (1) Acute respiratory failure with hypoxia Current Visit: Yes Status: Acute (2) Pneumonia Current Visit: Yes Status: Acute Qualifiers: Pneumonia type: due to unspecified organism Laterality: right Lung location: lower lobe of lung Qualified Code(s): J18.1 - Lobar pneumonia, unspecified organism (3) Pulmonary fibrosis Current Visit: Yes Status: Suspected Objective PUL Vital signs: Last Vital Signs Temp 97.8 F 05/14/17 16:06 Pulse 107 05/14/17 16:00 Resp 19 05/14/17 16:00 BP 145/78 05/14/17 16:00 Pulse Ox 98 05/14/17 16:00 Results - Laboratory Findings CBC and BMP: 05/14/17 04:17 05/14/17 04:17 Abnormal lab findings: Abnormal lab results WBC 23.8 K/mcL (4.3-11.1) H D 05/14/17 04:17 RBC 3.66 M/mcL (4.19-5.50) L 05/14/17 04:17 Hgb 9.8 g/dL (12.9-16.9) L 05/14/17 04:17 Hct 30.9 % (37.5-50.1) L 05/14/17 04:17 MCH 26.8 pg (28.0-33.3) L 05/14/17 04:17 RDW 14.6 % (11.5-14.5) H 05/14/17 04:17 MPV 9.2 fL (9.4-12.4) L 05/14/17 04:17 Neutrophils # 22.2 K/mcL (1.6-8.9) H 05/14/17 04:17 Lymphocytes # 0.4 K/mcL (0.6-4.6) L 05/14/17 04:17 Hypersegmented Neuts Present (Not Present) A 05/14/17 04:17 Immature Plt Fraction 1.0 % (1.1-6.1) L 05/12/17 18:52 ESR >= 130 mm/hr (0-10) H 05/13/17 13:03 VBG pH 7.46 pH Units (7.32-7.42) H 05/12/17 21:22 VBG pCO2 39 mmHg (41-51) L 05/12/17 21:22 VBG pO2 44 mmHg (25-40) H 05/12/17 21:22 VBG HCO3 27.7 mEq/L (21-27) H 05/12/17 21:22 Glucose 157 mg/dL (70-99) H 05/14/17 04:17 POC Glucose 133 (58-89) H 05/14/17 11:06 C-Reactive Protein 41 mg/L (Less than 5) H 05/13/17 13:03 B-Natriuretic Peptide 362 pg/mL (0-100) H 05/12/17 18:52 Albumin 2.9 g/dL (3.5-5.0) L 05/14/17 04:17 Globulin 4.5 g/dL (2.4-3.5) H 05/14/17 04:17 Albumin/Globulin Ratio 0.6 (1.1-2.2) L 05/14/17 04:17 Fluid Appearance Cloudy (Clear) A 05/13/17 14:44 - Microbiology Findings Microbiology Findings: Microbiology, Last 48 Hours 05/13/17 14:44 Acid Fast Stain - Final Right Upper Lobe Lung 05/13/17 14:44 Acid Fast Stain - Final Left Upper Lobe Lung 05/13/17 14:44 Respiratory Culture - Preliminary Right Upper Lobe Lung Normal upper respiratory tract jairon. No apparent pathogens isolated. 05/13/17 14:44 Gram Stain - Final Left Upper Lobe Lung Respiratory Culture - Preliminary Normal upper respiratory tract jairon. No apparent pathogens isolated. 05/13/17 14:44 Gram Stain - Final Right Upper Lobe Lung - Clinical Findings Intake & Output: Intake & Output 05/14/17 05/14/17 05/14/17 07:59 15:59 23:59 Intake Total 200 / 200 340 / 340 100 / 100 Balance 200 / 200 340 / 340 100 / 100 Weight 75.4 kg - Attending Attestation I examined this patient and my medical decision-making was reviewed with the HEALTH TECHNICIAN/PA/Advanced Practice Nurse/Resident Physician. I agree with the documented findings, disposition and treatment plan as described except to the extent set forth below. Patient seen and examined. After I was called by primary team that patient's symptoms has worsened significantly overnight and I went to the floor to see patient in moderate respiratory distress with audible wheezing. Labs, radiology, chart personally reviewed. 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 Initially I started patient on heliox, then noninvasive ventilation and explained to the family if his condition deteriorate then he will need invasive mechanical ventilation. Infectious disease consultation. Still in the differential diagnosis infectious versus inflammatory condition with malignancies is less likely. The possibilities condition could deteriorate even worse. Cardiovascular: stable GI: Nutrition per dietary and GI prophylaxis per routine. Because of the potential patient might need invasive mechanical ventilation, then will keep patient on liquid and only ice chips Heme: DVT prophylaxis per routine. Follow-up cytology from bronchoscopy ID: Continue antibiotics and plan to de-escalation Renal; urine out put and renal funtion reviewed Endorcine: blood glucose is monitored Lines: all lines checked and no evidence of infections Skin: skin care to prevent pressure ulcers per nursing routine care I spent 35 min of Critical Care time with this patient. It involved decision making of high complexity to assess, manipulate, and support vital organ system failure and/or to prevent further life threatening deterioration of the patient' s condition. The time involved in the performance of separately reportable procedures was not counted toward critical care time.
[2017-05-14] MEDS: Piperacillin/Tazobactam 3.375 GM in D5% in Water (Mini-Bag+) 100 ML IVPB SCH ×3 (11:38→23:43)
[2017-05-14] MEDS ORDERED: Magnesium Sulfate 2 GM in D5% in Water 100 ML IVPB PRN (11:55)
[2017-05-14] MEDS ORDERED: Calcium Gluconate 1,000 MG in D5% in Water 100 ML IVPB PRN (11:55)
[2017-05-14] MEDS ORDERED: Vancomycin 1,250 MG in D5% in Water 250 ML IVPB SCH ×2 (16:00→16:13)
[2017-05-14] MEDS: methylPREDNISolone 125 MG/2 ML VIAL IVP SCH ×2 (16:11→23:44)
--- NOTE | 2017-05-14 16:43 | Infectious Disease Consult ---
Date of Encounter: 05/14/17 Time of Encounter: 16:41 Assessment and Plan (1) Sepsis Status: Acute Assessment and plan: Patient had 2 SIRS criteria on admission and now he has tachycardia, tachypnea and leukocytosis. Likely due to Qualifiers: Sepsis type: sepsis due to unspecified organism Qualified Code(s): A41.9 - Sepsis, unspecified organism (2) Pulmonary cavitary lesion Status: Acute Assessment and plan: Etiology not clear. Could be due to chronic pulmonary fibrosis and chemical exposure history versus infectious process. So far AFB smear and GMS stain have been negative, cultures are showing normal respiratory jairon. I called down to microbiology and asked them to run the cultures on but they thought was normal rest or jairon because there from the upper left and upper right lobes. Patient has been already started empirically on vancomycin and Zosyn. I agree with current antibiotics, goal vancomycin trough around 10-15. Duration of treatment of antibiotics depends on the clinical picture and the culture results. If all cultures remain negative might consider checking fungal serologies. Patient is still requiring high O2 demand. Discussed with Dr. chaves (3) Leukocytosis Status: Acute Assessment and plan: with neutrophilic predominance etiology not clear, due to sepsis vs steroid related? Qualifiers: Leukocytosis type: unspecified Qualified Code(s): D72.829 - Elevated white blood cell count, unspecified (4) Pulmonary fibrosis Status: Suspected (5) Acute respiratory failure with hypoxia Status: Acute Infectious Disease HPI - Data of Consult Patient: new to practice Consult date: 05/14/17 Requesting Physician: Xuan Elizondo MD Primary Care Provider[facility] - Consult Narrative Reason for consult: cavitary lung lesion History of present illness: Mr. Read is a 87 year old male Patient is an 87 year old gentleman admitted to [facility] on 05/12/17 with dyspnea, we are consulted today on 05/14/17 for cavitary lung lesion concerning for infection. Patient is an 87-year-old gentleman with past medical history significant for hypertension, history of CVA in the past came in to [facility] on 05/12/2017 with shortness of breath and dyspnea on exertion. Apparently patient was having symptoms for about a week prior to admission and it gets much worse on exertion. Patient was not having any pleuritic chest pain. He was having some cough with small amount of evans color sputum. Patient did not have any fevers or chills or night sweats at home. Patient denies any weight loss. Patient denied any abdominal pain, nausea, vomiting or diarrhea. Patient denied any urinary symptoms. Since admission, patient has been afebrile, tachycardic, hypoxic, tachypneic, with normal WBC count initially at 6000 has jumped to 24,000 today. Patient also had ESR checked which was over 130. Patient had a CT scan on admission which revealed diffuse bilateral interstitial disease with chronic appearance. There is diffuse parenchymal distortion and scarring with scattered small nodular opacities with large irregular, lumbar masslike opacification in the upper lobes. Findings are suggestive of progressive massive fibrosis in the setting of underlying normal pneumoconiosis. Patient was evaluated by Dr. chaves and was taken for bronchoscopy. Bronc revealed mucoid crusty material. Gram stain, GMS, AFB were sent. Patient was started empirically on Zosyn and her asked to evaluate the patients make further recommendations. On further questioning, patient is further than the when he was young, he has not had any recent travel done last few years, lives at home with his , he denies having any animals at home. Patient denies any pigeons, chicken , Parrots or any other birds. Patient denies any sick contacts. 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 CC: Xuan Elizondo MD Past Med Surg Social Fam HX - Past Medical History Medical history: cancer, CVA - Past Surgical History Surgical History: cancer surgery (Removal of bladder tumors) - Social History Smoking Status: Never smoker Packs per day: 1 Smokeless Tobacco Status: No Alcohol use: none Drug use: none - Family History Father Living Status: Age at : 74 Cause of : cva Mother Living Status: Age at : 86 Cause of : cva Infectious Disease-CN:Meds Atorvastatin [Lipitor] 40 mg PO HS 05/12/17 [History] Latanoprost [Xalatan] 1 drop BOTH EYES HS 05/12/17 [History] NIFEdipine XL (24 HR) [Procardia XL] 30 mg PO DAILY 05/12/17 [History] Allergies No Known Allergies Allergy (Verified 05/12/17 18:24) Review of systems: 10 point ROS done, negative other for what's mentioned in the HPI Exam - Constitutional Vitals: Temp Pulse Resp BP Pulse Ox 97.8 F 107 19 145/78 98 05/14/17 16:06 05/14/17 16:00 05/14/17 16:00 05/14/17 16:00 05/14/17 16:00 General appearance: mild distress, no febrile Exam: On BiPAP and his tach. Unable to wean off high O2 demand - Head Head exam: Present: atraumatic, normocephalic - Eye Eye exam: Present: EOMI, PERRL, sclera anicteric - Neck Neck exam: Present: full ROM Additional comments: No stridor - Respiratory Additional comments: Coarse breath sounds bilateral lung muhammad. No wheezing appreciated - Cardiovascular Cardiovascular exam: Present: RRR Additional comments: Tachycardic. I did not appreciate any murmur. - GI/Abdominal GI/Abdominal exam: Present: normal bowel sounds, soft. Absent: tenderness - Extremities Exam Extremities exam: Present: normal inspection. Absent: pedal edema, tenderness - Neurological Exam Neurological exam: Present: alert, oriented X3. Absent: speech deficit - Skin Skin exam: Present: normal color. Absent: rash Infectious Disease CN: Results - Labs CBC & Chem 7: 05/14/17 04:17 05/14/17 04:17 Cultures: Cultures 05/13/17 14:44 Acid Fast Stain - Final Right Upper Lobe Lung 05/13/17 14:44 Acid Fast Stain - Final Left Upper Lobe Lung 05/13/17 14:44 Respiratory Culture - Preliminary Right Upper Lobe Lung Normal upper respiratory tract jairon. No apparent pathogens isolated. 05/13/17 14:44 Gram Stain - Final Left Upper Lobe Lung Respiratory Culture - Preliminary Normal upper respiratory tract jairon. No apparent pathogens isolated. 05/13/17 14:44 Gram Stain - Final Right Upper Lobe Lung Serology: Serology 05/13/17 05/13/17 Range/Units 14:44 14:44 Fluid Source mercedes bal rul bal Fluid Volume 10 15 mL Fluid Appearance Cloudy A Slightly Hazy A (Clear) Fluid RBC TNP TNP Fld Tot Nucleated Cell TNP TNP Fluid Seg Neutrophil % 56.0 34.0 % Fluid Lymphocytes % 2.0 4.0 % Fluid Monocytes % 1.0 % Fluid Other Cells % 42.0 61.0 % Consult Discharge Plan - Plan Referrals: PRUDENCIO,PCP [Primary Care Provider] - 05/19/17 2:00 pm
[2017-05-14 21:58] LABS: Bilirubin,Urine Negative (Negative); Blood,Urine Negative (Negative); Clarity,Urine Clear (Clear); Color,Urine Yellow (Yellow); Glucose,Urine (UA) Normal (Normal); Ketones,Urine Negative (Negative); Leukocyte Esterase,Urine Negative (Negative); Nitrite,Urine Negative (Negative); Protein,Urine Trace mg/dL (Neg-Trace); Specific Gravity,Urine 1.022 (1.010-1.025); Urobilinogen,Urine Normal (Normal)
[2017-05-14 21:59] LABS: Bacteria,Urine None Seen per hpf (None-Few); Hyaline Casts,Urine None Seen per lpf (None-Few); Squamous Epithelial Cell,Urine Moderate per lpf (None-Few); WBC,Urine 0-3 per hpf (0-3)
[2017-05-14] MEDS ORDERED: Levalbuterol Neb 1.25 MG/3 ML IH ONE (22:56)
[2017-05-14] MEDS: Latanoprost 2.5 ML BOTTLE BOTH EYES SCH (23:45)
[2017-05-15] MEDS: Ipratropium/Albuterol Neb 3 ML IH SCH ×6 (04:30→23:07)
[2017-05-15 05:55] LABS: Hematocrit 30.5 % (37.5-50.1); Hemoglobin 9.5 g/dL (12.9-16.9); Immature Granulocytes % 1.2 % (0-4); Lymphocytes # 0.2 K/mcL (0.6-4.6); Lymphocytes % 0.9 %; Mean Corpuscular HGB Conc 31.1 g/dL (31.6-35.5); Mean Corpuscular Volume 83.6 fL (83.0-100.0); Monocytes # 0.5 K/mcL (0.0-1.3); Monocytes % 2.2 %; Neutrophils # 20.4 K/mcL (1.6-8.9); Platelet Count 345 K/mcL (140-400); Red Blood Count 3.65 M/mcL (4.19-5.50); Red Cell Distribution Width 14.8 % (11.5-14.5); Segmented Neutrophils % 95.7 %
[2017-05-15 06:14] LABS: BUN/Creatinine Ratio 32 (6-26); Blood Urea Nitrogen 40 mg/dL (8-26); Carbon Dioxide 24 mEq/L (19-29); Chloride 104 mEq/L (98-109); Glucose 155 mg/dL (70-99); Osmolality,Calculated 299 (280-300); Sodium 138 mEq/L (136-145); eGFR For African Americans > 60 (> 60); eGFR For Non-African Americans 55 (> 60)
[2017-05-15] MEDS: *HR* Heparin 5,000 UNIT/ML VIAL SQ SCH ×2 (06:27→17:30)
[2017-05-15] MEDS: Budesonide/Formoterol 160/4.5 MDI IH SCH ×2 (07:54→20:56)
--- NOTE | 2017-05-15 08:00 | Pulmonology Progress Note ---
<Kaleigh Lucero - Last Filed: 05/15/17 11:02> Date of Encounter: 05/15/17 Time of Encounter: 08:00 Assessment and Plan (1) Acute respiratory failure with hypoxia Current Visit: Yes Status: Acute Patient was initially admitted to the hospitalist service for shortness of breath and got about 3 weeks. Does have a history of pulmonary fibrosis. On his respiratory status decreased. His oxygen saturation was noted to be in the 70s. He was placed on heliox via nonrebreather. He was still in significant respiratory distress so the decision was made to move the patient to ICU. Patient was tripoding and using accessory muscles to breathe. He appeared very anxious He did have rhonchorous breath sounds throughout. He has moved ICU to be placed on BiPAP. On BiPAP the patient's oxygen saturation is staying in the middle 90s. He was given some Versed and morphine 2 decrease his agitation. Patient does have a chest x-ray that appears that there may be some right basilar pneumonia. His bronchoscopy showed normal respiratory jairon. This was performed yesterday. Did have many gram-positive cocci and few gram-negative rods on Gram stain. We are culturing the respiratory specimen. The patient is currently on Zosyn and Levaquin for this. He is also getting Solu-Medrol 80 mg every 8. I spoke with the patient's family. They state the patient's wishes would be to be intubated for a trial. If necessary. Patient has been started on high flow nasal cannula today and is tolerating this well. He is attempting to eat breakfast at this time. He does not appear to be in respiratory distress. He states that he is feeling better. We will continue to monitor patient today in ICU. Will possibly move him to the floor tomorrow. Plan: highflow NC BiPAP as needed Heliox as needed Continue antibiotics Zosyn and Levaquin Continue Solu-Medrol 80 mg Symbicort Q 4 duonebs Subcutaneous heparin for DVT prophylaxis Continue patient's diet Lung cultures pending Protonix for GI prophylaxis ID on board (2) Sepsis Current Visit: Yes Status: Acute Patient is tachycardic, tachypneic, and has a leukocytosis. Likely sources is his lungs. Plan as above. Qualifiers: Sepsis type: sepsis due to unspecified organism Qualified Code(s): A41.9 - Sepsis, unspecified organism (3) Pneumonia Current Visit: Yes Status: Acute Plan as above Qualifiers: Pneumonia type: due to unspecified organism Laterality: right Lung location: lower lobe of lung Qualified Code(s): J18.1 - Lobar pneumonia, unspecified organism (4) Pulmonary fibrosis Current Visit: Yes Status: Suspected Plan as above (5) History of CVA (cerebrovascular accident) Current Visit: No Status: Chronic Chronic plan as above (6) DVT prophylaxis Current Visit: Yes Status: Acute Plan as above. Subjective Interval history: Patient was initially admitted to the hospitalist service for shortness of breath for about the past 3 weeks. Does have a history of pulmonary fibrosis. Yesterday he became very short of breath and was subsequently placed on heliox as well as BiPAP and moved to the ICU. On BiPAP the patient's oxygen saturation is staying in the middle 90s. He was given some Versed and morphine to decrease his agitation. Patient does have a chest x-ray that appears that there may be some right basilar pneumonia. His bronchoscopy showed normal respiratory jairon. This was performed yesterday. Did have many gram-positive cocci and few gram-negative rods on Gram stain. We switched the patient to Zosyn and vancomycin for this. We have also contacted ID. The CT of patient's chest showed a possible cavitary lesion in his left upper lung. Overnight patient was kept on the BiPAP. He did well. We transition patient to have flow He is managing this well and maintaining an oxygen saturation greater than 90%. Patient states that he is overall feeling better. He is eating this morning. 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 ) Integumentary: normal Extremities: no cyanosis, edema (mild pedal edema bilaterally. Left worse than right. ) Musculoskeletal: no deformities Gait: normal posture normal mental status, pupils equal and round, other mood appropriate, affect normal Results - Laboratory Findings CBC and BMP: 05/15/17 05:09 05/15/17 04:00 Abnormal lab findings: Abnormal lab results WBC 21.3 K/mcL (4.3-11.1) H 05/15/17 05:09 RBC 3.65 M/mcL (4.19-5.50) L 05/15/17 05:09 Hgb 9.5 g/dL (12.9-16.9) L 05/15/17 05:09 Hct 30.5 % (37.5-50.1) L 05/15/17 05:09 MCH 26.0 pg (28.0-33.3) L 05/15/17 05:09 MCHC 31.1 g/dL (31.6-35.5) L 05/15/17 05:09 RDW 14.8 % (11.5-14.5) H 05/15/17 05:09 MPV 9.0 fL (9.4-12.4) L 05/15/17 05:09 Neutrophils # 20.4 K/mcL (1.6-8.9) H 05/15/17 05:09 Lymphocytes # 0.2 K/mcL (0.6-4.6) L 05/15/17 05:09 Hypersegmented Neuts Present (Not Present) A 05/14/17 04:17 Immature Plt Fraction 1.0 % (1.1-6.1) L 05/12/17 18:52 ESR >= 130 mm/hr (0-10) H 05/13/17 13:03 VBG pH 7.46 pH Units (7.32-7.42) H 05/12/17 21:22 VBG pCO2 39 mmHg (41-51) L 05/12/17 21:22 VBG pO2 44 mmHg (25-40) H 05/12/17 21:22 VBG HCO3 27.7 mEq/L (21-27) H 05/12/17 21:22 BUN 40 mg/dL (8-26) H D 05/15/17 04:00 Est GFR (Non-Af Amer) 55 (> 60) L 05/15/17 04:00 BUN/Creatinine Ratio 32 (6-26) H 05/15/17 04:00 Glucose 155 mg/dL (70-99) H 05/15/17 04:00 POC Glucose 133 (58-89) H 05/14/17 11:06 C-Reactive Protein 41 mg/L (Less than 5) H 05/13/17 13:03 B-Natriuretic Peptide 362 pg/mL (0-100) H 05/12/17 18:52 Albumin 2.9 g/dL (3.5-5.0) L 05/14/17 04:17 Globulin 4.5 g/dL (2.4-3.5) H 05/14/17 04:17 Albumin/Globulin Ratio 0.6 (1.1-2.2) L 05/14/17 04:17 Urine Microscopic RBC 3-5 per hpf (0-3) H 05/14/17 21:35 Ur Squamous Epith Cells Moderate per lpf (None-Few) H 05/14/17 21:35 Fluid Appearance Cloudy (Clear) A 05/13/17 14:44 - Microbiology Findings Microbiology Findings: Microbiology, Last 48 Hours 05/13/17 14:44 Gram Stain - Final Left Upper Lobe Lung Respiratory Culture - Preliminary Gram Positive Cocci Gram Positive Cocci#2 Gram Positive Cocci#3 Gram Positive Cocci#4 Yeast Species 05/13/17 14:44 Respiratory Culture - Preliminary Right Upper Lobe Lung Gram Positive Cocci Gram Positive Cocci#2 Gram Positive Cocci#3 Gram Positive Cocci#4 Yeast Species 05/13/17 14:44 Acid Fast Stain - Final Right Upper Lobe Lung 05/13/17 14:44 Acid Fast Stain - Final Left Upper Lobe Lung 05/13/17 14:44 Gram Stain - Final Right Upper Lobe Lung - Diagnostic Findings Additional studies: Chest CT 05/12/17 18:44 IMPRESSION: 1. Diffuse bilateral pulmonary interstitial disease with a chronic appearance. There is diffuse parenchymal distortion and scarring with scattered small nodular opacities and larger irregular conglomerate masslike opacifications in the upper lobes. Findings are suggestive of progressive massive fibrosis in the setting of underlying pneumoconiosis. A superimposed acute infectious or inflammatory process is not excluded. 2. Trace bilateral pleural effusions. 3. Coronary artery atherosclerotic vascular disease. 4. Mildly enlarged main pulmonary artery as can be seen with pulmonary arterial hypertension. 5. Cholelithiasis. 6. Moderate age-indeterminate T9 vertebral body compression deformity. If clinically indicated further evaluation could be obtained with MRI. D/ / Markos Garduno MD / Markos Garduno MD Interpreting Provider: Markos Garduno MD Chest X-Ray 05/14/17 04:36 IMPRESSION: Right basilar atelectasis or pneumonia on a background of chronic interstitial lung disease. D/ / Kvng Burch MD / Kvng Burch MD Interpreting Provider: Kvng Burch MD - Clinical Findings Intake & Output: Intake & Output 05/14/17 05/15/17 05/15/17 23:59 07:59 15:59 Intake Total 450 / 450 300 / 300 Output Total 100 / 100 Balance 350 / 350 300 / 300 Weight 74.7 kg Consult Discharge Plan - Plan [facility]errals: [facility] [Primary Care Provider[facility] - 05/19/17 2:00 pm <Xuan Elizondo - Last Filed: 05/15/17 13:05> Date of Encounter: 05/15/17 Assessment and Plan (1) Acute respiratory failure with hypoxia Current Visit: Yes Status: Acute (2) Pneumonia Current Visit: Yes Status: Acute Qualifiers: Pneumonia type: due to unspecified organism Laterality: right Lung location: lower lobe of lung Qualified Code(s): J18.1 - Lobar pneumonia, unspecified organism (3) Pulmonary fibrosis Current Visit: Yes Status: Suspected Objective PUL Vital signs: Last Vital Signs Temp 97.9 F 05/15/17 11:20 Pulse 115 05/15/17 12:00 Resp 27 05/15/17 12:00 BP 118/68 05/15/17 12:00 Pulse Ox 92 05/15/17 12:00 Results - Laboratory Findings CBC and BMP: 05/15/17 05:09 05/15/17 04:00 Abnormal lab findings: Abnormal lab results WBC 21.3 K/mcL (4.3-11.1) H 05/15/17 05:09 RBC 3.65 M/mcL (4.19-5.50) L 05/15/17 05:09 Hgb 9.5 g/dL (12.9-16.9) L 05/15/17 05:09 Hct 30.5 % (37.5-50.1) L 05/15/17 05:09 MCH 26.0 pg (28.0-33.3) L 05/15/17 05:09 MCHC 31.1 g/dL (31.6-35.5) L 05/15/17 05:09 RDW 14.8 % (11.5-14.5) H 05/15/17 05:09 MPV 9.0 fL (9.4-12.4) L 05/15/17 05:09 Neutrophils # 20.4 K/mcL (1.6-8.9) H 05/15/17 05:09 Lymphocytes # 0.2 K/mcL (0.6-4.6) L 05/15/17 05:09 Hypersegmented Neuts Present (Not Present) A 05/14/17 04:17 Immature Plt Fraction 1.0 % (1.1-6.1) L 05/12/17 18:52 ESR >= 130 mm/hr (0-10) H 05/13/17 13:03 VBG pH 7.46 pH Units (7.32-7.42) H 05/12/17 21:22 VBG pCO2 39 mmHg (41-51) L 05/12/17 21:22 VBG pO2 44 mmHg (25-40) H 05/12/17 21:22 VBG HCO3 27.7 mEq/L (21-27) H 05/12/17 21:22 BUN 40 mg/dL (8-26) H D 05/15/17 04:00 Est GFR (Non-Af Amer) 55 (> 60) L 05/15/17 04:00 BUN/Creatinine Ratio 32 (6-26) H 05/15/17 04:00 Glucose 155 mg/dL (70-99) H 05/15/17 04:00 POC Glucose 133 (58-89) H 05/14/17 11:06 C-Reactive Protein 41 mg/L (Less than 5) H 05/13/17 13:03 B-Natriuretic Peptide 362 pg/mL (0-100) H 05/12/17 18:52 Albumin 2.9 g/dL (3.5-5.0) L 05/14/17 04:17 Globulin 4.5 g/dL (2.4-3.5) H 05/14/17 04:17 Albumin/Globulin Ratio 0.6 (1.1-2.2) L 05/14/17 04:17 Urine Microscopic RBC 3-5 per hpf (0-3) H 05/14/17 21:35 Ur Squamous Epith Cells Moderate per lpf (None-Few) H 05/14/17 21:35 Fluid Appearance Cloudy (Clear) A 05/13/17 14:44 - Microbiology Findings Microbiology Findings: Microbiology, Last 48 Hours 05/13/17 14:44 Gram Stain - Final Left Upper Lobe Lung Respiratory Culture - Preliminary Gram Positive Cocci Gram Positive Cocci#2 Gram Positive Cocci#3 Gram Positive Cocci#4 Yeast Species 05/13/17 14:44 Respiratory Culture - Preliminary Right Upper Lobe Lung Gram Positive Cocci Gram Positive Cocci#2 Gram Positive Cocci#3 Gram Positive Cocci#4 Yeast Species 05/13/17 14:44 Acid Fast Stain - Final Right Upper Lobe Lung 05/13/17 14:44 Acid Fast Stain - Final Left Upper Lobe Lung 05/13/17 14:44 Gram Stain - Final Right Upper Lobe Lung - Clinical Findings Intake & Output: Intake & Output 05/14/17 05/15/17 05/15/17 23:59 07:59 15:59 Intake Total 450 / 450 300 / 300 250 / 250 Output Total 100 / 100 100 / 100 Balance 350 / 350 300 / 300 150 / 150 Weight 74.7 kg - Attending Attestation I examined this patient and my medical decision-making was reviewed with the GEOGRAPHIC INFORMATION SYSTEMS DIRECTOR/PA/Advanced Practice Nurse/Resident Physician. I agree with the documented findings, disposition and treatment plan as described except to the extent set forth below. Patient seen and examined. Labs, radiology, chart personally reviewed. Agree with resident's history and physical, assessment, plan with following comments: HELP DESK TECHNICIAN: Patient follows commands, Pulmonary: Acceptable oxygenation and ventilation and transitioned to high flow oxygen. Suspect this is bacterial infection and overall decreased slight improvement. We will continue treatment in ICU. Cardiovascular: stable GI: Nutrition per dietary and GI prophylaxis per routine Heme: DVT prophylaxis per routine ID: Continue antibiotics and plan to de-escalation. Patient has symptoms and signs suggestive of sepsis. Renal; urine out put and renal funtion reviewed Endorcine: blood glucose is monitored Lines: all lines checked and no evidence of infections Skin: skin care to prevent pressure ulcers per nursing routine care
[2017-05-15] MEDS: Ondansetron 4 MG/2 ML VIAL IVP PRN (08:18)
[2017-05-15] MEDS: methylPREDNISolone 125 MG/2 ML VIAL IVP SCH ×3 (08:18→23:10)
[2017-05-15] MEDS: Piperacillin/Tazobactam 3.375 GM in D5% in Water (Mini-Bag+) 100 ML IVPB SCH ×3 (08:18→23:10)
[2017-05-15] MEDS ORDERED: Vancomycin 1,250 MG in D5% in Water 250 ML IVPB SCH (09:00)
[2017-05-15] MEDS: NIFEdipine XL (24 HR) 30 MG TAB.ER.24 PO SCH (09:20)
[2017-05-15] MEDS: Aspirin Enteric Coated 81 MG Tablet PO SCH (09:20)
--- NOTE | 2017-05-15 12:43 | Infectious Disease Progress No ---
Date of Encounter: 05/15/17 Time of Encounter: 12:37 - Assessment and Plan (1) Sepsis Current Visit: Yes Status: Acute The patient had two SIRS criteria on admission and subsequently developed tachypnea. He also developed leukocytosis yesterday. Likely secondary to pneumonia and cavitary lung lesion. The patient continues to have tachycardia and tachypnea, appears somewhat improved overall. He has remained afebrile. Blood cultures drawn 05/14/17 are pending x 2 sets. 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 infectious process. Status post bronchoscopy 05/13/[address] Elizondo. Note reviewed. BAL cultures pending. Gram stain shows yeast and 4 different GPC. AFB and GMS stains are negative. Await cultures to finalize. If they remain negative, may need to consider checking fungal serologies. Continue Vancomycin IV. Pharmacy to dose. Goal trough approximately 15. Continue Zosyn 3.375 grams IV Q8H. Duration of treatment depends on the clinical picture. Monitor renal function and for drug toxicity and dose-adjust antibiotics. (3) Acute respiratory failure with hypoxia Current Visit: Yes Status: Acute Likely multifactorial --> possible pulmonary fibrosis + possible infection. Still requiring high FiO2, but is now off BIPAP. Pulmonology team consulted and following. (4) Pulmonary fibrosis Current Visit: Yes Status: Suspected CT chest shows diffuse bilateral pulmonary interstitial disease with a chronic appearance. 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 Pulmonology consulted and following. (5) Hypertension Current Visit: Yes Status: Chronic Qualifiers: Hypertension type: essential hypertension Qualified Code(s): I10 - Essential (primary) hypertension (6) History of CVA (cerebrovascular accident) Current Visit: No Status: Chronic (7) Oral thrush Current Visit: Yes Status: Acute Start Nystatin swish and swallow. - Subjective Interval history: Patient seen and examined. No acute events noted overnight. Patient sitting up in bed. Since that overall he feels better. States he is less short of breath this morning and is tolerating O2 via high-flow nasal cannula. Denies chest pain. Reports nausea earlier, but resolved since receiving anti-emetic. Denies vomiting, diarrhea, or abdominal pain. States he has not had a BM since Friday. Denies urinary complaints. Denies new skin lesions. Infect Dis PN-Objective Data - Labs CBC & Chem 7: 05/20/17 03:31 05/20/17 03:31 Labs: Laboratory Results - last 24 hr 05/14/17 05/15/17 05/15/17 21:35 04:00 05:09 WBC 21.3 H RBC 3.65 L Hgb 9.5 L Hct 30.5 L MCV 83.6 MCH 26.0 L MCHC 31.1 L RDW 14.8 H Plt Count 345 MPV 9.0 L Immature Gran % 1.2 Seg Neutrophils % 95.7 Lymphocytes % 0.9 Monocytes % 2.2 Eosinophils % 0.0 Basophils % 0.0 Neutrophils # 20.4 H Lymphocytes # 0.2 L Monocytes # 0.5 Eosinophils # 0.0 Basophils # 0.0 Sodium 138 Potassium 4.0 Chloride 104 Carbon Dioxide 24 BUN 40 H D Creatinine 1.25 Est GFR ( Amer) > 60 Est GFR (Non-Af Amer) 55 L BUN/Creatinine Ratio 32 H Glucose 155 H Calculated Osmolality 299 Calcium 9.0 Urine Color Yellow Urine Clarity Clear Urine pH 5.0 Ur Specific [place] 1.022 Urine Protein Trace Urine Glucose (UA) Normal Urine Ketones Negative Urine Blood Negative Urine Nitrite Negative Urine Bilirubin Negative Urine Urobilinogen Normal Ur Leukocyte Esterase Negative Urine Microscopic RBC 3-5 H Urine Microscopic WBC 0-3 Ur Squamous Epith Cells Moderate H Urine Bacteria None Seen Hyaline Casts None Seen Cultures: Cultures 05/13/17 14:44 Gram Stain - Final Left Upper Lobe Lung Respiratory Culture - Preliminary Gram Positive Cocci Gram Positive Cocci#2 Gram Positive Cocci#3 Gram Positive Cocci#4 Yeast Species 05/13/17 14:44 Respiratory Culture - Preliminary Right Upper Lobe Lung Gram Positive Cocci Gram Positive Cocci#2 Gram Positive Cocci#3 Gram Positive Cocci#4 Yeast Species 05/13/17 14:44 Acid Fast Stain - Final Right Upper Lobe Lung 05/13/17 14:44 Acid Fast Stain - Final Left Upper Lobe Lung 05/13/17 14:44 Gram Stain - Final Right Upper Lobe Lung Serology 05/14/17 05/13/17 05/13/17 Range/Units 21:35 14:44 14:44 Urine Color Yellow (Yellow) Urine Clarity Clear (Clear) Urine pH 5.0 (5.0-8.0) pH Units Ur Specific [place] 1.022 (1.010-1.025) Urine Protein Trace (Neg-Trace) mg/dL Urine Glucose (UA) Normal (Normal) mg/dL Urine Ketones Negative (Negative) mg/dL Urine Blood Negative (Negative) Urine Nitrite Negative (Negative) Urine Bilirubin Negative (Negative) Urine Urobilinogen Normal (Normal) mg/dL Ur Leukocyte Esterase Negative (Negative) Urine Microscopic RBC 3-5 H (0-3) per hpf Urine Microscopic WBC 0-3 (0-3) per hpf Ur Squamous Epith Cells Moderate H (None-Few) per lpf Urine Bacteria None Seen (None-Few) per hpf Hyaline Casts None Seen (None-Few) per lpf Fluid Source mercedes bal rul bal Fluid Volume 10 15 mL Fluid Appearance Cloudy A Slightly Hazy A (Clear) Fluid RBC TNP TNP Fld Tot Nucleated Cell TNP TNP Fluid Seg Neutrophil % 56.0 34.0 % Fluid Lymphocytes % 2.0 4.0 % Fluid Monocytes % 1.0 % Fluid Other Cells % 42.0 61.0 % Exam - Constitutional Vitals: Temp Pulse Resp BP Pulse Ox 97.9 F 115 27 118/68 92 05/15/17 11:20 05/15/17 12:00 05/15/17 12:00 05/15/17 12:00 05/15/17 12:00 General appearance: average body habitus, cooperative, no acute distress - Head Head exam: Present: atraumatic, normal inspection, normocephalic - Eye Eye exam: Present: EOMI, normal appearance, PERRL Pupils: Present: normal accommodation - ENT ENT exam: Present: mucous membranes moist Additional comments: Oral thrush noted. - Neck Neck exam: Present: normal inspection - Respiratory Respiratory exam: Present: rhonchi, wheezes (Coarse inspiratory/expiratory) - Cardiovascular Cardiovascular exam: Present: +S1, +S2, tachycardia. Absent: irregular rhythm - GI/Abdominal GI/Abdominal exam: Present: normal bowel sounds, soft. Absent: distended, tenderness - Extremities Exam Extremities exam: Present: normal inspection. Absent: joint swelling, pedal edema, tenderness - Neurological Exam Neurological exam: Present: alert, oriented X3, no focal deficits - Psychiatric Psychiatric exam: Present: normal affect, normal mood - Skin Skin exam: Present: dry, intact, normal color, warm Consult Discharge Plan - Plan Referrals: [facility] [Primary Care Provider] - 05/19/17 2:00 pm - Attending Attestation I examined this patient and my medical decision-making was reviewed with the Resident Physician. I agree with the documented findings, disposition and treatment plan as described except to the extent set forth below.
[2017-05-15] MEDS: Ipratropium/Albuterol Neb 3 ML IH PRN (13:15)
[2017-05-15] MEDS: Nystatin SUSP 5 ML UD.LIQ PO SCH ×2 (16:00→20:17)
[2017-05-15 16:05] LABS: Ionized Calcium 1.21 mmol/L (1.15-1.35); Magnesium 2.5 mg/dL (1.6-2.6); Phosphorous 4.8 mg/dL (2.3-4.7)
[2017-05-15] MEDS ORDERED: Levalbuterol Neb 1.25 MG/3 ML IH PRN (17:05)
[2017-05-15] MEDS: clonazePAM 0.5 MG TABLET PO PRN (17:30)
[2017-05-15] MEDS: Latanoprost 2.5 ML BOTTLE BOTH EYES SCH (20:17)
[2017-05-16] MEDS: Ipratropium/Albuterol Neb 3 ML IH SCH ×6 (03:23→23:49)
[2017-05-16 03:30] LABS: Basophils % 0.1 %; Hematocrit 28.3 % (37.5-50.1); Hemoglobin 8.8 g/dL (12.9-16.9); Immature Granulocytes % 0.5 % (0-4); Immature Platelets 1.5 % (1.1-6.1); Lymphocytes # 0.1 K/mcL (0.6-4.6); Lymphocytes % 1.1 %; Mean Corpuscular HGB Conc 31.1 g/dL (31.6-35.5); Mean Corpuscular Hemoglobin 26.1 pg (28.0-33.3); Mean Platelet Volume 8.8 fL (9.4-12.4); Monocytes # 0.4 K/mcL (0.0-1.3); Neutrophils # 11.6 K/mcL (1.6-8.9); Platelet Count 300 K/mcL (140-400); Red Blood Count 3.37 M/mcL (4.19-5.50); Red Cell Distribution Width 14.8 % (11.5-14.5); Segmented Neutrophils % 95.3 %
[2017-05-16 03:47] LABS: Ionized Calcium 1.17 mmol/L (1.15-1.35)
[2017-05-16 03:53] LABS: Calcium 8.7 mg/dL (8.6-10.8); Magnesium 2.8 mg/dL (1.6-2.6); Phosphorous 5.7 mg/dL (2.3-4.7); Potassium 4.2 mEq/L (3.5-4.5)
[2017-05-16 04:39] LABS: Large Platelets Present (Not Present); Platelet Estimate Normal (Normal)
[2017-05-16] MEDS: *HR* Heparin 5,000 UNIT/ML VIAL SQ SCH ×2 (05:37→17:47)
[2017-05-16 08:14] LABS: Myeloperoxidase Ab 1 AU/mL (0-19); Serine Protease-3 Antibody 3 AU/mL (0-19)
[2017-05-16] MEDS ORDERED: Furosemide 40 MG/4 ML VIAL IVP ONE (08:19)
[2017-05-16 08:31] LABS: ANA IgG by ELISA DETECTED (None Detected)
[2017-05-16] MEDS: Budesonide/Formoterol 160/4.5 MDI IH SCH ×2 (08:43→20:06)
[2017-05-16] MEDS: Nystatin SUSP 5 ML UD.LIQ PO SCH ×4 (08:58→21:00)
[2017-05-16] MEDS: Piperacillin/Tazobactam 3.375 GM in D5% in Water (Mini-Bag+) 100 ML IVPB SCH ×3 (08:58→23:43)
[2017-05-16] MEDS: Aspirin Enteric Coated 81 MG Tablet PO SCH (09:05)
[2017-05-16] MEDS: methylPREDNISolone 125 MG/2 ML VIAL IVP SCH ×3 (09:05→23:42)
[2017-05-16] MEDS: NIFEdipine XL (24 HR) 30 MG TAB.ER.24 PO SCH (09:06)
[2017-05-16] MEDS ORDERED: Vancomycin 1,000 MG in D5% in Water 250 ML IVPB SCH (10:00)
[2017-05-16] MEDS ORDERED: Albuterol 2.5 MG/3 ML NEBULIZER IH PRN (11:00)
--- NOTE | 2017-05-16 11:04 | Pulmonology Progress Note ---
<Kaleigh Lucero - Last Filed: 05/16/17 11:23> Date of Encounter: 05/16/17 Time of Encounter: 11:02 Assessment and Plan (1) Acute respiratory failure with hypoxia Current Visit: Yes Status: Acute Patient was initially admitted to the hospitalist service for shortness of breath and got about 3 weeks. Does have a history of pulmonary fibrosis. On his respiratory status decreased. His oxygen saturation was noted to be in the 70s. He was placed on heliox via nonrebreather. He was still in significant respiratory distress so the decision was made to move the patient to ICU. Patient was tripoding and using accessory muscles to breathe. He appeared very anxious He did have rhonchorous breath sounds throughout. He has moved ICU to be placed on BiPAP. On BiPAP the patient's oxygen saturation is staying in the middle 90s. He was given some Versed and morphine 2 decrease his agitation. Patient does have a chest x-ray that appears that there may be some right basilar pneumonia. His bronchoscopy showed normal respiratory jairon. This was performed yesterday. Did have many gram-positive cocci and few gram-negative rods on Gram stain. We are culturing the respiratory specimen. The patient is currently on Zosyn and Levaquin for this. He is also getting Solu-Medrol 80 mg every 8 hrs. I spoke with the patient's family. They state the patient's wishes would be to be intubated for a trial. If necessary. Patient has been started on high flow nasal cannula today and is tolerating this well. He is attempting to eat breakfast at this time. He does not appear to be in respiratory distress. He states that he is feeling better. We will continue to monitor patient today in ICU. He was on BiPAP overnight. He is tolerating the nasal cannula today. His appetite is poor whenever encouraged she will eat about half of his meal. He does enjoy whole milk so we are encouraging this. Dietary will add nutritional support today. We will diurese patient today. Plan: highflow NC BiPAP as needed Continue antibiotics Zosyn and Levaquin Continue Solu-Medrol 80 mg Symbicort Q 4 duonebs Subcutaneous heparin for DVT prophylaxis Continue patient's diet encourage eating Lung cultures pending Protonix for GI prophylaxis ID on board 40 IV Lasix (2) Sepsis Current Visit: Yes Status: Acute Patient is tachycardic, tachypneic, and has a leukocytosis. Likely sources is his lungs. Plan as above. Qualifiers: Sepsis type: sepsis due to unspecified organism Qualified Code(s): A41.9 - Sepsis, unspecified organism (3) Pneumonia Current Visit: Yes Status: Acute Plan as above Qualifiers: Pneumonia type: due to unspecified organism Laterality: right Lung location: upper lobe of lung Qualified Code(s): J18.1 - Lobar pneumonia, unspecified organism (4) Pulmonary fibrosis Current Visit: Yes Status: Suspected Plan as above (5) History of CVA (cerebrovascular accident) Current Visit: No Status: Chronic Chronic plan as above (6) DVT prophylaxis Current Visit: Yes Status: Acute Plan as above. Subjective Interval history: Patient was BiPAP overnight. There are no events. He is placed on high flow nasal cannula again today and is tolerating this well. We will continue to encourage increase in his intake of food. Patient's lung sounds are getting worse in his right upper lobe. We are still pending cultures. We will continue on the vanc and Zosyn. Objective PUL Vital signs: Last Vital Signs Temp 97.6 F 05/16/17 07:54 Pulse 118 05/16/17 10:00 Resp 22 05/16/17 10:00 BP 137/81 05/16/17 10:00 Pulse Ox 87 05/16/17 10:00 General appearance: other (Does appear mildly in respiratory distress.) Eyes: nonicteric ENT: oropharynx moist Neck: supple Effort: mildly labored Auscultation: bilateral: rhonchi Cardiovascular: regular rate and rhythm Gastrointestinal: normoactive bowel sounds, non-distended Integumentary: normal Extremities: no cyanosis, no edema, no clubbing, pink and warm, pulses normal, no ischemia or petechiae Musculoskeletal: no deformities Gait: normal posture normal mental status, non-focal exam, other (Gross left-sided deficits from previous stroke.) mood appropriate, affect normal Results - Laboratory Findings CBC and BMP: 05/16/17 03:25 05/16/17 03:25 Abnormal lab findings: Abnormal lab results WBC 12.2 K/mcL (4.3-11.1) H 05/16/17 03:25 RBC 3.37 M/mcL (4.19-5.50) L 05/16/17 03:25 Hgb 8.8 g/dL (12.9-16.9) L 05/16/17 03:25 Hct 28.3 % (37.5-50.1) L 05/16/17 03:25 MCH 26.1 pg (28.0-33.3) L 05/16/17 03:25 MCHC 31.1 g/dL (31.6-35.5) L 05/16/17 03:25 RDW 14.8 % (11.5-14.5) H 05/16/17 03:25 MPV 8.8 fL (9.4-12.4) L 05/16/17 03:25 Neutrophils # 11.6 K/mcL (1.6-8.9) H 05/16/17 03:25 Lymphocytes # 0.1 K/mcL (0.6-4.6) L 05/16/17 03:25 Hypersegmented Neuts Present (Not Present) A 05/14/17 04:17 Large Platelets Present (Not Present) A 05/16/17 03:25 ESR >= 130 mm/hr (0-10) H 05/13/17 13:03 VBG pH 7.46 pH Units (7.32-7.42) H 05/12/17 21:22 VBG pCO2 39 mmHg (41-51) L 05/12/17 21:22 VBG pO2 44 mmHg (25-40) H 05/12/17 21:22 VBG HCO3 27.7 mEq/L (21-27) H 05/12/17 21:22 BUN 61 mg/dL (8-26) H D 05/16/17 03:25 Creatinine 1.60 mg/dL (0.72-1.25) H 05/16/17 03:25 Est GFR ( Amer) 50 (> 60) L 05/16/17 03:25 Est GFR (Non-Af Amer) 41 (> 60) L 05/16/17 03:25 BUN/Creatinine Ratio 38 (6-26) H 05/16/17 03:25 Glucose 185 mg/dL (70-99) H 05/16/17 03:25 POC Glucose 133 (58-89) H 05/14/17 11:06 Calculated Osmolality 310 (280-300) H 05/16/17 03:25 Phosphorus 5.7 mg/dL (2.3-4.7) H 05/16/17 03:25 Magnesium 2.8 mg/dL (1.6-2.6) H 05/16/17 03:25 C-Reactive Protein 41 mg/L (Less than 5) H 05/13/17 13:03 B-Natriuretic Peptide 362 pg/mL (0-100) H 05/12/17 18:52 Albumin 2.9 g/dL (3.5-5.0) L 05/14/17 04:17 Globulin 4.5 g/dL (2.4-3.5) H 05/14/17 04:17 Albumin/Globulin Ratio 0.6 (1.1-2.2) L 05/14/17 04:17 Urine Microscopic RBC 3-5 per hpf (0-3) H 05/14/17 21:35 Ur Squamous Epith Cells Moderate per lpf (None-Few) H 05/14/17 21:35 Fluid Appearance Cloudy (Clear) A 05/13/17 14:44 TIMOTHY Screen DETECTED (None Detected) A 05/13/17 13:03 - Microbiology Findings Microbiology Findings: Microbiology, Last 48 Hours 05/13/17 14:44 Respiratory Culture - Preliminary Right Upper Lobe Lung Gram Positive Cocci Gram Positive Cocci#2 Gram Positive Cocci#3 Gram Positive Cocci#4 Yeast Species 05/14/17 17:02 Blood Culture - Preliminary Peripheral Venipuncture No growth. 05/14/17 17:02 Blood Culture - Preliminary Peripheral Venipuncture No growth. 05/13/17 14:44 Gram Stain - Final Left Upper Lobe Lung Respiratory Culture - Preliminary Gram Positive Cocci Gram Positive Cocci#2 Gram Positive Cocci#3 Gram Positive Cocci#4 Yeast Species 05/13/17 14:44 Acid Fast Stain - Final Right Upper Lobe Lung 05/13/17 14:44 Acid Fast Stain - Final Left Upper Lobe Lung - Clinical Findings Intake & Output: Intake & Output 05/15/17 05/16/17 05/16/17 23:59 07:59 15:59 Intake Total 360 / 360 200 / 200 Output Total 150 / 150 100 / 100 175 / 175 Balance 210 / 210 100 / 100 -175 / -175 Weight 73.5 kg Consult Discharge Plan - Plan Referrals: [facility],PCP [Primary Care Provider] - 05/19/17 2:00 pm <Xuan Elizondo M - Last Filed: 05/16/17 12:26> Date of Encounter: 05/16/17 Assessment and Plan (1) Acute respiratory failure with hypoxia Current Visit: Yes Status: Acute (2) Pneumonia Current Visit: Yes Status: Acute Qualifiers: Pneumonia type: due to unspecified organism Laterality: right Lung location: upper lobe of lung Qualified Code(s): J18.1 - Lobar pneumonia, unspecified organism (3) Pulmonary fibrosis Current Visit: Yes Status: Suspected Objective PUL Vital signs: Last Vital Signs Temp 97.6 F 05/16/17 11:36 Pulse 98 05/16/17 12:00 Resp 24 05/16/17 12:00 BP 158/64 05/16/17 12:00 Pulse Ox 95 05/16/17 12:00 Results - Laboratory Findings CBC and BMP: 05/16/17 03:25 05/16/17 03:25 Abnormal lab findings: Abnormal lab results WBC 12.2 K/mcL (4.3-11.1) H 05/16/17 03:25 RBC 3.37 M/mcL (4.19-5.50) L 05/16/17 03:25 Hgb 8.8 g/dL (12.9-16.9) L 05/16/17 03:25 Hct 28.3 % (37.5-50.1) L 05/16/17 03:25 MCH 26.1 pg (28.0-33.3) L 05/16/17 03:25 MCHC 31.1 g/dL (31.6-35.5) L 05/16/17 03:25 RDW 14.8 % (11.5-14.5) H 05/16/17 03:25 MPV 8.8 fL (9.4-12.4) L 05/16/17 03:25 Neutrophils # 11.6 K/mcL (1.6-8.9) H 05/16/17 03:25 Lymphocytes # 0.1 K/mcL (0.6-4.6) L 05/16/17 03:25 Hypersegmented Neuts Present (Not Present) A 05/14/17 04:17 Large Platelets Present (Not Present) A 05/16/17 03:25 ESR >= 130 mm/hr (0-10) H 05/13/17 13:03 VBG pH 7.46 pH Units (7.32-7.42) H 05/12/17 21:22 VBG pCO2 39 mmHg (41-51) L 05/12/17 21:22 VBG pO2 44 mmHg (25-40) H 05/12/17 21:22 VBG HCO3 27.7 mEq/L (21-27) H 05/12/17 21:22 BUN 61 mg/dL (8-26) H D 05/16/17 03:25 Creatinine 1.60 mg/dL (0.72-1.25) H 05/16/17 03:25 Est GFR ( Amer) 50 (> 60) L 05/16/17 03:25 Est GFR (Non-Af Amer) 41 (> 60) L 05/16/17 03:25 BUN/Creatinine Ratio 38 (6-26) H 05/16/17 03:25 Glucose 185 mg/dL (70-99) H 05/16/17 03:25 POC Glucose 133 (58-89) H 05/14/17 11:06 Calculated Osmolality 310 (280-300) H 05/16/17 03:25 Phosphorus 5.7 mg/dL (2.3-4.7) H 05/16/17 03:25 Magnesium 2.8 mg/dL (1.6-2.6) H 05/16/17 03:25 C-Reactive Protein 41 mg/L (Less than 5) H 05/13/17 13:03 B-Natriuretic Peptide 362 pg/mL (0-100) H 05/12/17 18:52 Albumin 2.9 g/dL (3.5-5.0) L 05/14/17 04:17 Globulin 4.5 g/dL (2.4-3.5) H 05/14/17 04:17 Albumin/Globulin Ratio 0.6 (1.1-2.2) L 05/14/17 04:17 Urine Microscopic RBC 3-5 per hpf (0-3) H 05/14/17 21:35 Ur Squamous Epith Cells Moderate per lpf (None-Few) H 05/14/17 21:35 Fluid Appearance Cloudy (Clear) A 05/13/17 14:44 TIMOTHY Screen DETECTED (None Detected) A 05/13/17 13:03 - Microbiology Findings Microbiology Findings: Microbiology, Last 48 Hours 05/13/17 14:44 Respiratory Culture - Preliminary Right Upper Lobe Lung Gram Positive Cocci Gram Positive Cocci#2 Gram Positive Cocci#3 Gram Positive Cocci#4 Yeast Species 05/14/17 17:02 Blood Culture - Preliminary Peripheral Venipuncture No growth. 05/14/17 17:02 Blood Culture - Preliminary Peripheral Venipuncture No growth. 05/13/17 14:44 Gram Stain - Final Left Upper Lobe Lung Respiratory Culture - Preliminary Gram Positive Cocci Gram Positive Cocci#2 Gram Positive Cocci#3 Gram Positive Cocci#4 Yeast Species 05/13/17 14:44 Acid Fast Stain - Final Right Upper Lobe Lung 05/13/17 14:44 Acid Fast Stain - Final Left Upper Lobe Lung - Clinical Findings Intake & Output: Intake & Output 05/15/17 05/16/17 05/16/17 23:59 07:59 15:59 Intake Total 360 / 360 200 / 200 Output Total 150 / 150 100 / 100 375 / 375 Balance 210 / 210 100 / 100 -375 / -375 Weight 73.5 kg - Attending Attestation I examined this patient and my medical decision-making was reviewed with the ENGINEERING DIRECTOR/PA/Advanced Practice Nurse/Resident Physician. I agree with the documented findings, disposition and treatment plan as described except to the extent set forth below. Patient seen and examined. Labs, radiology, chart personally reviewed. Agree with resident's history and physical, assessment, plan with following comments: PHYSICAL INSTRUCTOR: Patient follows commands, Pulmonary: Acceptable oxygenation and ventilation, patient feels slightly better, however due to his overall health status will keep him in ICU for now and continue current treatment. Still requires noninvasive ventilation. Cardiovascular: stable GI: Nutrition per dietary and GI prophylaxis per routine. Nutrition support and dietary will arrange that. Heme: DVT prophylaxis per routine ID: Continue antibiotics and plan to de-escalation Renal; urine out put and renal funtion reviewed Endorcine: blood glucose is monitored Lines: all lines checked and no evidence of infections Skin: skin care to prevent pressure ulcers per nursing routine care Discussed with the daughter at the bedside.
[2017-05-16] MEDS: Acetylcysteine 10% 2 ML INHSOL IH SCH ×2 (16:31→23:49)
--- NOTE | 2017-05-16 16:35 | Infectious Disease Progress No ---
Date of Encounter: 05/16/17 Time of Encounter: 10:15 - Assessment and Plan (1) Sepsis Current Visit: Yes Status: Acute The patient had two SIRS criteria on admission and subsequently developed tachypnea. He also developed leukocytosis. Likely secondary to pneumonia and cavitary lung lesion. The patient continues to have tachycardia and tachypnea. He has remained afebrile. Blood cultures drawn 05/14/17 are NGTD x 2 sets. 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 infectious process. Status post bronchoscopy 05/13/[address] Elizondo. Note reviewed. BAL cultures pending. Gram stain shows yeast and 4 different GPC. AFB and GMS stains are negative. Await cultures to finalize. If they remain negative, may need to consider checking fungal serologies. Continue Vancomycin IV. Pharmacy to dose. Goal trough approximately 15. Continue Zosyn 3.375 grams IV Q8H. Duration of treatment depends on the clinical picture. Monitor renal function and for drug toxicity and dose-adjust antibiotics. (3) Acute respiratory failure with hypoxia Current Visit: Yes Status: Acute Likely multifactorial --> possible pulmonary fibrosis + possible infection. Still requiring high FiO2 and is being placed back on BIPAP now due to hypoxia. Pulmonology team consulted and following. (4) Pulmonary fibrosis Current Visit: Yes Status: Suspected CT chest shows diffuse bilateral pulmonary interstitial disease with a chronic appearance. 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 Pulmonology consulted and following. (5) Hypertension Current Visit: Yes Status: Chronic Qualifiers: Hypertension type: essential hypertension Qualified Code(s): I10 - Essential (primary) hypertension (6) History of CVA (cerebrovascular accident) Current Visit: No Status: Chronic (7) Oral thrush Current Visit: Yes Status: Acute Continue Nystatin swish and swallow. - Subjective Interval history: Patient seen and examined. No acute events noted overnight. Patient sitting up in bed on high flow O2, but appears very dyspneic and able to speak in short sentences only. Audible wheezing noted. Reports chest tightness. Denies nausea, vomiting, or diarrhea. Denies abdominal pain. Denies urinary complaints. Denies new skin lesions. Infect Dis PN-Objective Data - Labs CBC & Chem 7: 05/16/17 03:25 05/16/17 03:25 Labs: Laboratory Results - last 24 hr 05/16/17 05/16/17 05/16/17 03:25 03:25 08:00 WBC 12.2 H RBC 3.37 L Hgb 8.8 L Hct 28.3 L MCV 84.0 MCH 26.1 L MCHC 31.1 L RDW 14.8 H Plt Count 300 MPV 8.8 L Immature Gran % 0.5 Seg Neutrophils % 95.3 Lymphocytes % 1.1 Monocytes % 3.0 Eosinophils % 0.0 Basophils % 0.1 Neutrophils # 11.6 H Lymphocytes # 0.1 L Monocytes # 0.4 Eosinophils # 0.0 Basophils # 0.0 Platelet Estimate Normal Large Platelets Present A Immature Plt Fraction 1.5 Sodium 139 Potassium 4.2 Chloride 105 Carbon Dioxide 24 BUN 61 H D Creatinine 1.60 H Est GFR ( Amer) 50 L Est GFR (Non-Af Amer) 41 L BUN/Creatinine Ratio 38 H Glucose 185 H Calculated Osmolality 310 H Calcium 8.7 Ionized Calcium 1.17 Phosphorus 5.7 H Magnesium 2.8 H Vancomycin Trough 15.6 Cultures: Cultures 05/13/17 14:44 Respiratory Culture - Preliminary Right Upper Lobe Lung Gram Positive Cocci Gram Positive Cocci#2 Gram Positive Cocci#3 Gram Positive Cocci#4 Yeast Species 05/14/17 17:02 Blood Culture - Preliminary Peripheral Venipuncture No growth. 05/14/17 17:02 Blood Culture - Preliminary Peripheral Venipuncture No growth. 05/13/17 14:44 Gram Stain - Final Left Upper Lobe Lung Respiratory Culture - Preliminary Gram Positive Cocci Gram Positive Cocci#2 Gram Positive Cocci#3 Gram Positive Cocci#4 Yeast Species 05/13/17 14:44 Acid Fast Stain - Final Right Upper Lobe Lung 05/13/17 14:44 Acid Fast Stain - Final Left Upper Lobe Lung 05/13/17 14:44 Gram Stain - Final Right Upper Lobe Lung Serology 05/14/17 05/13/17 05/13/17 Range/Units 21:35 14:44 14:44 Urine Color Yellow (Yellow) Urine Clarity Clear (Clear) Urine pH 5.0 (5.0-8.0) pH Units Ur Specific [place] 1.022 (1.010-1.025) Urine Protein Trace (Neg-Trace) mg/dL Urine Glucose (UA) Normal (Normal) mg/dL Urine Ketones Negative (Negative) mg/dL Urine Blood Negative (Negative) Urine Nitrite Negative (Negative) Urine Bilirubin Negative (Negative) Urine Urobilinogen Normal (Normal) mg/dL Ur Leukocyte Esterase Negative (Negative) Urine Microscopic RBC 3-5 H (0-3) per hpf Urine Microscopic WBC 0-3 (0-3) per hpf Ur Squamous Epith Cells Moderate H (None-Few) per lpf Urine Bacteria None Seen (None-Few) per hpf Hyaline Casts None Seen (None-Few) per lpf Fluid Source mercedes bal rul bal Fluid Volume 10 15 mL Fluid Appearance Cloudy A Slightly Hazy A (Clear) Fluid RBC TNP TNP Fld Tot Nucleated Cell TNP TNP Fluid Seg Neutrophil % 56.0 34.0 % Fluid Lymphocytes % 2.0 4.0 % Fluid Monocytes % 1.0 % Fluid Other Cells % 42.0 61.0 % - Impressions Impressions Chest X-Ray 05/16/17 08:18 IMPRESSION: Stable appearance of the chest. Diffuse pulmonary opacities and pleural thickening which is in part chronic. A superimposed acute process is difficult to entirely exclude. D/ / 05/16/2017 09:20:17 Peyton Mann MD / kayla Interpreting Provider: Peyton Mann MD Exam - Constitutional Vitals: Temp Pulse Resp BP Pulse Ox 97.6 F 98 24 148/84 90 05/16/17 11:36 05/16/17 16:00 05/16/17 16:00 05/16/17 16:00 05/16/17 16:00 General appearance: average body habitus, cooperative, mild distress - Head Head exam: Present: atraumatic, normal inspection, normocephalic - Eye Eye exam: Present: EOMI, normal appearance, PERRL Pupils: Present: normal accommodation - ENT ENT exam: Present: mucous membranes moist Additional comments: Oral thrush noted. - Neck Neck exam: Present: normal inspection - Respiratory Respiratory exam: Present: respiratory distress, rhonchi, wheezes, tachypnea - Cardiovascular Cardiovascular exam: Present: RRR, +S1, +S2 - GI/Abdominal GI/Abdominal exam: Present: normal bowel sounds, soft. Absent: distended, tenderness - Extremities Exam Extremities exam: Present: normal inspection. Absent: joint swelling, pedal edema, tenderness - Neurological Exam Neurological exam: Present: alert, oriented X3, no focal deficits - Psychiatric Psychiatric exam: Present: normal affect, normal mood - Skin Skin exam: Present: dry, intact, normal color, warm Consult Discharge Plan - Plan [facility]errals: [facility]Primary Care Provider[facility] - 05/19/17 2:00 pm
[2017-05-16] MEDS: Latanoprost 2.5 ML BOTTLE BOTH EYES SCH (21:01)
[2017-05-16] MEDS: clonazePAM 0.5 MG TABLET PO PRN (21:01)
[2017-05-17] MEDS: Ipratropium/Albuterol Neb 3 ML IH SCH ×6 (03:52→23:41)
[2017-05-17 04:05] LABS: Hematocrit 29.9 % (37.5-50.1); Hemoglobin 9.6 g/dL (12.9-16.9); Mean Corpuscular HGB Conc 32.1 g/dL (31.6-35.5); Mean Corpuscular Hemoglobin 26.8 pg (28.0-33.3); Mean Corpuscular Volume 83.5 fL (83.0-100.0); Mean Platelet Volume 9.3 fL (9.4-12.4); Monocytes # 0.5 K/mcL (0.0-1.3); Platelet Count 294 K/mcL (140-400); Red Blood Count 3.58 M/mcL (4.19-5.50)
[2017-05-17 04:09] LABS: Ionized Calcium 1.15 mmol/L (1.15-1.35)
[2017-05-17 04:16] LABS: Calcium 8.7 mg/dL (8.6-10.8); Magnesium 2.8 mg/dL (1.6-2.6); Phosphorous 5.5 mg/dL (2.3-4.7); Potassium 4.2 mEq/L (3.5-4.5)
[2017-05-17 04:24] LABS: Lymphocytes # 0.5 K/mcL (0.6-4.6); Neutrophils # 12.3 K/mcL (1.6-8.9); Platelet Estimate Normal (Normal)
[2017-05-17 04:25] LABS: Hypersegmented Neutrophils Present (Not Present)
[2017-05-17] MEDS: *HR* Heparin 5,000 UNIT/ML VIAL SQ SCH ×2 (05:31→18:35)
[2017-05-17] MEDS: Aspirin Enteric Coated 81 MG Tablet PO SCH (08:38)
[2017-05-17] MEDS: methylPREDNISolone 125 MG/2 ML VIAL IVP SCH (08:38)
[2017-05-17] MEDS: NIFEdipine XL (24 HR) 30 MG TAB.ER.24 PO SCH (08:38)
[2017-05-17] MEDS: Nystatin SUSP 5 ML UD.LIQ PO SCH ×4 (08:38→21:07)
[2017-05-17] MEDS: Furosemide 40 MG/4 ML VIAL IVP SCH (08:38)
[2017-05-17] MEDS: Piperacillin/Tazobactam 3.375 GM in D5% in Water (Mini-Bag+) 100 ML IVPB SCH (08:39)
[2017-05-17] MEDS: Budesonide/Formoterol 160/4.5 MDI IH SCH ×2 (08:48→20:14)
[2017-05-17] MEDS: Acetylcysteine 10% 2 ML INHSOL IH SCH ×3 (08:48→23:41)
--- NOTE | 2017-05-17 09:54 | Pulmonology Progress Note ---
Date of Encounter: 05/17/17 Time of Encounter: 09:52 Assessment and Plan (1) Acute respiratory failure with hypoxia Current Visit: Yes Status: Acute Acute respiratory failure with hypoxia in this elderly individual may be due to underlying interstitial lung disease, pulmonary edema aspiration or a combination of these issues. To date, bronchoscopy cultures are negative and therefore antibiotic will be de- escalated to Rocephin, complete an empiric eight-day course. Continuation of supplemental oxygen, inhaled bronchodilators, empiric diuresis modulation dependent upon renal function, noninvasive ventilatory support. Continue DVT and ulcer prophylaxis. Code(s): J96.01 - Acute respiratory failure with hypoxia Subjective Principal diagnosis: Acute respiratory failure with hypoxia Interval history: The patient is arousable and interactive, requires high flow supplemental oxygen at approximately 10-12 L via nasal route and intermittent use of BiPAP to assist with respiratory distress. The patient although awake and arousable does not provide any meaningful respiratory complaint history. Objective PUL Vital signs: Last Vital Signs Temp 97.7 F 05/17/17 08:00 Pulse 110 05/17/17 09:00 Resp 20 05/17/17 09:00 BP 158/76 05/17/17 09:00 Pulse Ox 92 05/17/17 09:00 Eyes: nonicteric Auscultation: bilateral: diminished breath sounds, rales, rhonchi Cardiovascular: regular rate and rhythm, other (J KAREN) Gastrointestinal: normoactive bowel sounds, non-distended Extremities: no cyanosis, edema (Bilateral lower extremity pitting edema) Musculoskeletal: no deformities non-focal exam Results - Laboratory Findings CBC and BMP: 05/17/17 03:55 05/17/17 03:55 Abnormal lab findings: Abnormal lab results WBC 13.4 K/mcL (4.3-11.1) H 05/17/17 03:55 RBC 3.58 M/mcL (4.19-5.50) L 05/17/17 03:55 Hgb 9.6 g/dL (12.9-16.9) L 05/17/17 03:55 Hct 29.9 % (37.5-50.1) L 05/17/17 03:55 MCH 26.8 pg (28.0-33.3) L 05/17/17 03:55 RDW 15.0 % (11.5-14.5) H 05/17/17 03:55 MPV 9.3 fL (9.4-12.4) L 05/17/17 03:55 Neutrophils # 12.3 K/mcL (1.6-8.9) H 05/17/17 03:55 Lymphocytes # 0.5 K/mcL (0.6-4.6) L 05/17/17 03:55 Hypersegmented Neuts Present (Not Present) A 05/17/17 03:55 Large Platelets Present (Not Present) A 05/16/17 03:25 ESR >= 130 mm/hr (0-10) H 05/13/17 13:03 VBG pH 7.46 pH Units (7.32-7.42) H 05/12/17 21:22 VBG pCO2 39 mmHg (41-51) L 05/12/17 21:22 VBG pO2 44 mmHg (25-40) H 05/12/17 21:22 VBG HCO3 27.7 mEq/L (21-27) H 05/12/17 21:22 BUN 66 mg/dL (8-26) H 05/17/17 03:55 Creatinine 1.51 mg/dL (0.72-1.25) H 05/17/17 03:55 Est GFR ( Amer) 53 (> 60) L 05/17/17 03:55 Est GFR (Non-Af Amer) 44 (> 60) L 05/17/17 03:55 BUN/Creatinine Ratio 44 (6-26) H 05/17/17 03:55 Glucose 202 mg/dL (70-99) H 05/17/17 03:55 POC Glucose 133 (58-89) H 05/14/17 11:06 Calculated Osmolality 311 (280-300) H 05/17/17 03:55 Phosphorus 5.5 mg/dL (2.3-4.7) H 05/17/17 03:55 Magnesium 2.8 mg/dL (1.6-2.6) H 05/17/17 03:55 C-Reactive Protein 41 mg/L (Less than 5) H 05/13/17 13:03 B-Natriuretic Peptide 362 pg/mL (0-100) H 05/12/17 18:52 Albumin 2.9 g/dL (3.5-5.0) L 05/14/17 04:17 Globulin 4.5 g/dL (2.4-3.5) H 05/14/17 04:17 Albumin/Globulin Ratio 0.6 (1.1-2.2) L 05/14/17 04:17 Urine Microscopic RBC 3-5 per hpf (0-3) H 05/14/17 21:35 Ur Squamous Epith Cells Moderate per lpf (None-Few) H 05/14/17 21:35 Fluid Appearance Cloudy (Clear) A 05/13/17 14:44 TIMOTHY Screen DETECTED (None Detected) A 05/13/17 13:03 - Microbiology Findings Microbiology Findings: Microbiology, Last 48 Hours 05/13/17 14:44 Respiratory Culture - Preliminary Right Upper Lobe Lung Staphylococcus aureus Gram Positive Cocci#2 Gram Positive Cocci#3 Gram Positive Cocci#4 Yeast Species Streptococcus salivarius 05/14/17 17:02 Blood Culture - Preliminary Peripheral Venipuncture No growth. 05/14/17 17:02 Blood Culture - Preliminary Peripheral Venipuncture No growth. 05/13/17 14:44 Gram Stain - Final Left Upper Lobe Lung Respiratory Culture - Preliminary Gram Positive Cocci Gram Positive Cocci#2 Gram Positive Cocci#3 Gram Positive Cocci#4 Yeast Species - Clinical Findings Intake & Output: Intake & Output 05/16/17 05/17/17 05/17/17 23:59 07:59 15:59 Intake Total 300 / 300 250 / 250 Output Total 350 / 350 175 / 175 150 / 150 Balance -50 / -50 75 / 75 -150 / -150 Weight 75.2 kg Consult Discharge Plan - Plan [facility]errals: [facility] [Primary Care Provider[facility] - 05/19/17 2:00 pm
[2017-05-17] MEDS: MethylPREDNISolone 40 MG/ML VIAL IVP SCH ×3 (13:47→23:21)
[2017-05-17] MEDS: clonazePAM 0.5 MG TABLET PO PRN (21:07)
[2017-05-17] MEDS: Latanoprost 2.5 ML BOTTLE BOTH EYES SCH (21:08)
[2017-05-18 03:09] LABS: Basophils % 0.1 %; Hematocrit 30.9 % (37.5-50.1); Hemoglobin 9.6 g/dL (12.9-16.9); Immature Granulocytes % 0.7 % (0-4); Immature Platelets 2.1 % (1.1-6.1); Lymphocytes # 0.2 K/mcL (0.6-4.6); Lymphocytes % 1.7 %; Mean Corpuscular HGB Conc 31.1 g/dL (31.6-35.5); Mean Corpuscular Hemoglobin 26.1 pg (28.0-33.3); Mean Platelet Volume 9.2 fL (9.4-12.4); Monocytes # 0.6 K/mcL (0.0-1.3); Monocytes % 5.7 %; Platelet Count 292 K/mcL (140-400); Red Blood Count 3.68 M/mcL (4.19-5.50); Red Cell Distribution Width 15.1 % (11.5-14.5); Segmented Neutrophils % 91.8 %
[2017-05-18 03:11] LABS: Neutrophils # 9.8 K/mcL (1.6-8.9)
[2017-05-18 03:14] LABS: Ionized Calcium 1.13 mmol/L (1.15-1.35)
[2017-05-18 03:28] LABS: Calcium 8.6 mg/dL (8.6-10.8); Phosphorous 6.1 mg/dL (2.3-4.7); Potassium 4.3 mEq/L (3.5-4.5)
[2017-05-18 04:04] LABS: Platelet Estimate Normal (Normal)
[2017-05-18] MEDS: Ipratropium/Albuterol Neb 3 ML IH SCH ×5 (04:34→20:33)
[2017-05-18] MEDS: MethylPREDNISolone 40 MG/ML VIAL IVP SCH ×4 (06:17→23:11)
[2017-05-18] MEDS: *HR* Heparin 5,000 UNIT/ML VIAL SQ SCH ×2 (06:17→18:21)
[2017-05-18] MEDS: NIFEdipine XL (24 HR) 30 MG TAB.ER.24 PO SCH (07:36)
[2017-05-18] MEDS: Furosemide 40 MG/4 ML VIAL IVP SCH (07:36)
[2017-05-18] MEDS: Nystatin SUSP 5 ML UD.LIQ PO SCH ×4 (07:38→20:16)
[2017-05-18] MEDS: Aspirin Enteric Coated 81 MG Tablet PO SCH (07:39)
[2017-05-18] MEDS: Budesonide/Formoterol 160/4.5 MDI IH SCH ×2 (08:02→20:33)
[2017-05-18] MEDS: Acetylcysteine 10% 2 ML INHSOL IH SCH (08:02)
--- NOTE | 2017-05-18 09:27 | Pulmonology Progress Note ---
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 aspiration or a combination of these issues. To date, bronchoscopy cultures are negative and therefore antibiotic will be de- escalated to Rocephin, complete an empiric eight-day course. Continuation of supplemental oxygen, inhaled bronchodilators, empiric diuresis modulation dependent upon renal function, noninvasive ventilatory support. Continue DVT and ulcer prophylaxis, venous duplex studies of lower extremities pending Continue management in ICU setting. Management reviewed during multidisciplinary critical care rounds.. Code(s): J96.01 - Acute respiratory failure with hypoxia Subjective Principal diagnosis: Acute respiratory failure with hypoxia Interval history: The patient is awake and appropriately interactive, requires high flow supplemental oxygen at approximately 8 L via nasal route and intermittent use of BiPAP to assist with respiratory distress. Patient notes persisting chest congestion and cough. Patient also admits to fatigue and leg edema otherwise review of systems (comprehensive) unremarkable. According to the nursing staff, the patient does not seemingly aspirate following ingestion of pills liquids and solid food. Objective PUL Vital signs: Last Vital Signs Temp 96.7 F L 05/18/17 07:32 Pulse 111 05/18/17 08:00 Resp 18 05/18/17 08:03 BP 145/81 05/18/17 08:00 Pulse Ox 90 05/18/17 08:03 General appearance: no acute distress Eyes: nonicteric ENT: oropharynx moist Effort: normal Auscultation: bilateral: diminished breath sounds, rhonchi (Loud rhonchi bilaterally) Cardiovascular: regular rate and rhythm Gastrointestinal: normoactive bowel sounds, non-distended Integumentary: normal Extremities: edema (Bilateral lower extremity edema left greater than right, no calf tenderness.) normal mental status, other (Mild left upper left lower extremity weakness relative to the right side.) Results - Laboratory Findings CBC and BMP: 05/18/17 03:02 05/18/17 03:02 Abnormal lab findings: Abnormal lab results RBC 3.68 M/mcL (4.19-5.50) L 05/18/17 03:02 Hgb 9.6 g/dL (12.9-16.9) L 05/18/17 03:02 Hct 30.9 % (37.5-50.1) L 05/18/17 03:02 MCH 26.1 pg (28.0-33.3) L 05/18/17 03:02 MCHC 31.1 g/dL (31.6-35.5) L 05/18/17 03:02 RDW 15.1 % (11.5-14.5) H 05/18/17 03:02 MPV 9.2 fL (9.4-12.4) L 05/18/17 03:02 Neutrophils # 9.8 K/mcL (1.6-8.9) H 05/18/17 03:02 Lymphocytes # 0.2 K/mcL (0.6-4.6) L 05/18/17 03:02 Hypersegmented Neuts Present (Not Present) A 05/17/17 03:55 Large Platelets Present (Not Present) A 05/16/17 03:25 ESR >= 130 mm/hr (0-10) H 05/13/17 13:03 VBG pH 7.46 pH Units (7.32-7.42) H 05/12/17 21:22 VBG pCO2 39 mmHg (41-51) L 05/12/17 21:22 VBG pO2 44 mmHg (25-40) H 05/12/17 21:22 VBG HCO3 27.7 mEq/L (21-27) H 05/12/17 21:22 BUN 81 mg/dL (8-26) H 05/18/17 03:02 Creatinine 1.67 mg/dL (0.72-1.25) H 05/18/17 03:02 Est GFR ( Amer) 47 (> 60) L 05/18/17 03:02 Est GFR (Non-Af Amer) 39 (> 60) L 05/18/17 03:02 BUN/Creatinine Ratio 49 (6-26) H 05/18/17 03:02 Glucose 190 mg/dL (70-99) H 05/18/17 03:02 POC Glucose 133 (58-89) H 05/14/17 11:06 Calculated Osmolality 321 (280-300) H 05/18/17 03:02 Ionized Calcium 1.13 mmol/L (1.15-1.35) L 05/18/17 03:02 Phosphorus 6.1 mg/dL (2.3-4.7) H 05/18/17 03:02 Magnesium 3.0 mg/dL (1.6-2.6) H 05/18/17 03:02 C-Reactive Protein 41 mg/L (Less than 5) H 05/13/17 13:03 B-Natriuretic Peptide 362 pg/mL (0-100) H 05/12/17 18:52 Albumin 2.9 g/dL (3.5-5.0) L 05/14/17 04:17 Globulin 4.5 g/dL (2.4-3.5) H 05/14/17 04:17 Albumin/Globulin Ratio 0.6 (1.1-2.2) L 05/14/17 04:17 Urine Microscopic RBC 3-5 per hpf (0-3) H 05/14/17 21:35 Ur Squamous Epith Cells Moderate per lpf (None-Few) H 05/14/17 21:35 Fluid Appearance Cloudy (Clear) A 05/13/17 14:44 TIMOTHY Screen DETECTED (None Detected) A 05/13/17 13:03 TIMOTHY Titer 1:5120 (<1:40) H 05/13/17 13:03 - Microbiology Findings Microbiology Findings: Microbiology, Last 48 Hours 05/13/17 14:44 Acid Fast Stain - Final Left Upper Lobe Lung 05/13/17 14:44 Respiratory Culture - Preliminary Right Upper Lobe Lung Staphylococcus aureus Aerococcus viridans Streptococcus salivarius#2 Gram Positive Cocci#4 Oly albicans 05/14/17 17:02 Blood Culture - Preliminary Peripheral Venipuncture No growth. 05/14/17 17:02 Blood Culture - Preliminary Peripheral Venipuncture No growth. - Clinical Findings Intake & Output: Intake & Output 05/17/17 05/18/17 05/18/17 23:59 07:59 15:59 Intake Total 300 / 300 100 / 100 Output Total 450 / 450 275 / 275 Balance -150 / -150 -175 / -175 Weight 75.9 kg Consult Discharge Plan - Plan [facility]errals: [facility] [Primary Care Provider[facility] - 05/19/17 2:00 pm
[2017-05-18] MEDS: Ondansetron 4 MG/2 ML VIAL IVP PRN (11:59)
[2017-05-18] MEDS: Latanoprost 2.5 ML BOTTLE BOTH EYES SCH (20:16)
[2017-05-19] MEDS: Ipratropium/Albuterol Neb 3 ML IH SCH ×6 (00:12→20:25)
[2017-05-19 03:14] LABS: Ionized Calcium 1.07 mmol/L (1.15-1.35)
[2017-05-19 03:20] LABS: Magnesium 2.9 mg/dL (1.6-2.6); Phosphorous 5.6 mg/dL (2.3-4.7)
[2017-05-19] MEDS: MethylPREDNISolone 40 MG/ML VIAL IVP SCH ×4 (05:07→23:13)
[2017-05-19] MEDS: *HR* Heparin 5,000 UNIT/ML VIAL SQ SCH ×2 (05:07→16:22)
[2017-05-19 06:57] LABS: Hematocrit 30.1 % (37.5-50.1); Hemoglobin 9.4 g/dL (12.9-16.9); Mean Corpuscular HGB Conc 31.2 g/dL (31.6-35.5); Mean Corpuscular Hemoglobin 26.1 pg (28.0-33.3); Mean Corpuscular Volume 83.6 fL (83.0-100.0); Mean Platelet Volume 9.7 fL (9.4-12.4); Nucleated Red Blood Cells 0.2 /100 WBC (0); Platelet Count 245 K/mcL (140-400); Red Cell Distribution Width 14.9 % (11.5-14.5)
[2017-05-19 07:10] LABS: Calcium 8.6 mg/dL (8.6-10.8); Potassium 4.7 mEq/L (3.5-4.5)
--- NOTE | 2017-05-19 07:12 | Pulmonology Progress Note ---
<Edenilson Vasques - Last Filed: 05/19/17 08:34> Date of Encounter: 05/19/17 Time of Encounter: 07:10 Assessment and Plan (1) Acute respiratory failure with hypoxia Current Visit: Yes Status: Acute Related to underlying lung pathology of unclear etiology at this point. Interstitial lung disease including pneumoconiosis, infection, aspiration, and pulmonary edema are all considerations. Culture sent from bronchoscopy showed normal respiratory jairon and antibiotics been D escalated. Patient is tolerating high flow nasal cannula at this time. We will continue to diurese gently as kidney function allows. Continue monitoring in the ICU. 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 We will continue with supplemental oxygen. Patient received 1 dose of Solu-Medrol the emergency department, we will hold off further steroids at this time. We will consult pulmonology. Patient will likely need O2 qualification prior to discharge. Subjective Principal diagnosis: Acute respiratory failure with hypoxia Interval history: Patient seen and examined at bedside. Patient states that he feels about the same today. He still feels slightly short of breath but this is unchanged from the last few days. He did not wear BiPAP overnight as he did not feel that he needed it. He reports continued cough and chest congestion. Objective PUL Vital signs: Last Vital Signs Temp 97.1 F L 05/19/17 04:37 Pulse 95 05/19/17 06:00 Resp 21 05/19/17 06:00 BP 153/78 05/19/17 06:00 Pulse Ox 96 05/19/17 06:00 General appearance: no acute distress ENT: oropharynx moist Effort: mildly labored Auscultation: bilateral: wheezes, rhonchi Cardiovascular: other (Regular ryhthm, tachy) Gastrointestinal: normoactive bowel sounds, soft, non-tender, non-distended Extremities: pink and warm, edema (trace) normal mental status, non-focal exam Results - Laboratory Findings CBC and BMP: 05/19/17 06:44 05/19/17 06:44 Abnormal lab findings: Abnormal lab results WBC 11.2 K/mcL (4.3-11.1) H 05/19/17 06:44 RBC 3.60 M/mcL (4.19-5.50) L 05/19/17 06:44 Hgb 9.4 g/dL (12.9-16.9) L 05/19/17 06:44 Hct 30.1 % (37.5-50.1) L 05/19/17 06:44 MCH 26.1 pg (28.0-33.3) L 05/19/17 06:44 MCHC 31.2 g/dL (31.6-35.5) L 05/19/17 06:44 RDW 14.9 % (11.5-14.5) H 05/19/17 06:44 Neutrophils # 9.8 K/mcL (1.6-8.9) H 05/18/17 03:02 Lymphocytes # 0.2 K/mcL (0.6-4.6) L 05/18/17 03:02 Nucleated RBCs/100 WBC 0.2 /100 WBC (0) H 05/19/17 06:44 Hypersegmented Neuts Present (Not Present) A 05/17/17 03:55 Large Platelets Present (Not Present) A 05/16/17 03:25 ESR >= 130 mm/hr (0-10) H 05/13/17 13:03 VBG pH 7.46 pH Units (7.32-7.42) H 05/12/17 21:22 VBG pCO2 39 mmHg (41-51) L 05/12/17 21:22 VBG pO2 44 mmHg (25-40) H 05/12/17 21:22 VBG HCO3 27.7 mEq/L (21-27) H 05/12/17 21:22 BUN 81 mg/dL (8-26) H 05/18/17 03:02 Creatinine 1.67 mg/dL (0.72-1.25) H 05/18/17 03:02 Est GFR ( Amer) 47 (> 60) L 05/18/17 03:02 Est GFR (Non-Af Amer) 39 (> 60) L 05/18/17 03:02 BUN/Creatinine Ratio 49 (6-26) H 05/18/17 03:02 Glucose 190 mg/dL (70-99) H 05/18/17 03:02 POC Glucose 133 (58-89) H 05/14/17 11:06 Calculated Osmolality 321 (280-300) H 05/18/17 03:02 Ionized Calcium 1.07 mmol/L (1.15-1.35) L 05/19/17 03:00 Phosphorus 5.6 mg/dL (2.3-4.7) H 05/19/17 03:00 Magnesium 2.9 mg/dL (1.6-2.6) H 05/19/17 03:00 C-Reactive Protein 41 mg/L (Less than 5) H 05/13/17 13:03 B-Natriuretic Peptide 362 pg/mL (0-100) H 05/12/17 18:52 Albumin 2.9 g/dL (3.5-5.0) L 05/14/17 04:17 Globulin 4.5 g/dL (2.4-3.5) H 05/14/17 04:17 Albumin/Globulin Ratio 0.6 (1.1-2.2) L 05/14/17 04:17 Urine Microscopic RBC 3-5 per hpf (0-3) H 05/14/17 21:35 Ur Squamous Epith Cells Moderate per lpf (None-Few) H 05/14/17 21:35 Fluid Appearance Cloudy (Clear) A 05/13/17 14:44 TIMOTHY Screen DETECTED (None Detected) A 05/13/17 13:03 TIMOTHY Titer 1:5120 (<1:40) H 05/13/17 13:03 - Microbiology Findings Microbiology Findings: Microbiology, Last 48 Hours 05/13/17 14:44 Fungal Culture - Preliminary Right Upper Lobe Lung Yeast Species 05/13/17 14:44 Fungal Culture - Preliminary Left Upper Lobe Lung Yeast Species 05/13/17 14:44 Gram Stain - Final Left Upper Lobe Lung Respiratory Culture - Final Staphylococcus aureus Aerococcus viridans Streptococcus salivarius Rothia species Oly albicans 05/13/17 14:44 Respiratory Culture - Final Right Upper Lobe Lung Staphylococcus aureus Aerococcus viridans Streptococcus salivarius#2 Rothia species Oly albicans 05/13/17 14:44 Acid Fast Stain - Final Left Upper Lobe Lung - Clinical Findings Intake & Output: Intake & Output 05/18/17 05/18/17 05/19/17 15:59 23:59 07:59 Output Total 200 / 200 400 / 400 300 / 300 Balance -200 / -200 -400 / -400 -300 / -300 Weight 77.655 kg Consult Discharge Plan - Plan [facility] Care Provider[facility] - 05/19/17 2:00 pm <Jesus Grant - Last Filed: 05/19/17 11:36> Date of Encounter: 05/19/17 Assessment and Plan (1) Acute respiratory failure with hypoxia Current Visit: Yes Status: Acute Code(s): J96.01 - Acute respiratory failure with hypoxia Objective PUL Vital signs: Last Vital Signs Temp 97.5 F L 05/19/17 11:10 Pulse 98 05/19/17 09:00 Resp 16 05/19/17 09:00 BP 159/73 05/19/17 09:00 Pulse Ox 96 05/19/17 09:00 Auscultation: bilateral: diminished breath sounds, rhonchi Results - Laboratory Findings CBC and BMP: 05/19/17 06:44 05/19/17 06:44 Abnormal lab findings: Abnormal lab results WBC 11.2 K/mcL (4.3-11.1) H 05/19/17 06:44 RBC 3.60 M/mcL (4.19-5.50) L 05/19/17 06:44 Hgb 9.4 g/dL (12.9-16.9) L 05/19/17 06:44 Hct 30.1 % (37.5-50.1) L 05/19/17 06:44 MCH 26.1 pg (28.0-33.3) L 05/19/17 06:44 MCHC 31.2 g/dL (31.6-35.5) L 05/19/17 06:44 RDW 14.9 % (11.5-14.5) H 05/19/17 06:44 Neutrophils # 10.5 K/mcL (1.6-8.9) H 05/19/17 06:44 Nucleated RBCs/100 WBC 0.2 /100 WBC (0) H 05/19/17 06:44 Hypersegmented Neuts Present (Not Present) A 05/17/17 03:55 Large Platelets Present (Not Present) A 05/16/17 03:25 Anisocytosis 1+ (Not Present) A 05/19/17 06:44 Macrocytosis Present (Not Present) A 05/19/17 06:44 ESR >= 130 mm/hr (0-10) H 05/13/17 13:03 VBG pH 7.46 pH Units (7.32-7.42) H 05/12/17 21:22 VBG pCO2 39 mmHg (41-51) L 05/12/17 21:22 VBG pO2 44 mmHg (25-40) H 05/12/17 21:22 VBG HCO3 27.7 mEq/L (21-27) H 05/12/17 21:22 Potassium 4.7 mEq/L (3.5-4.5) H 05/19/17 06:44 Carbon Dioxide 30 mEq/L (19-29) H 05/19/17 06:44 BUN 91 mg/dL (8-26) H 05/19/17 06:44 Creatinine 1.45 mg/dL (0.72-1.25) H 05/19/17 06:44 Est GFR ( Amer) 56 (> 60) L 05/19/17 06:44 Est GFR (Non-Af Amer) 46 (> 60) L 05/19/17 06:44 BUN/Creatinine Ratio 63 (6-26) H 05/19/17 06:44 Glucose 183 mg/dL (70-99) H 05/19/17 06:44 POC Glucose 133 (58-89) H 05/14/17 11:06 Calculated Osmolality 317 (280-300) H 05/19/17 06:44 Ionized Calcium 1.07 mmol/L (1.15-1.35) L 05/19/17 03:00 Phosphorus 5.6 mg/dL (2.3-4.7) H 05/19/17 03:00 Magnesium 2.9 mg/dL (1.6-2.6) H 05/19/17 03:00 C-Reactive Protein 41 mg/L (Less than 5) H 05/13/17 13:03 B-Natriuretic Peptide 362 pg/mL (0-100) H 05/12/17 18:52 Albumin 2.9 g/dL (3.5-5.0) L 05/14/17 04:17 Globulin 4.5 g/dL (2.4-3.5) H 05/14/17 04:17 Albumin/Globulin Ratio 0.6 (1.1-2.2) L 05/14/17 04:17 Urine Microscopic RBC 3-5 per hpf (0-3) H 05/14/17 21:35 Ur Squamous Epith Cells Moderate per lpf (None-Few) H 05/14/17 21:35 Fluid Appearance Cloudy (Clear) A 05/13/17 14:44 TIMOTHY Screen DETECTED (None Detected) A 05/13/17 13:03 TIMOTHY Titer 1:5120 (<1:40) H 05/13/17 13:03 - Microbiology Findings Microbiology Findings: Microbiology, Last 48 Hours 05/13/17 14:44 Fungal Culture - Preliminary Right Upper Lobe Lung Yeast Species 05/13/17 14:44 Fungal Culture - Preliminary Left Upper Lobe Lung Yeast Species 05/13/17 14:44 Gram Stain - Final Left Upper Lobe Lung Respiratory Culture - Final Staphylococcus aureus Aerococcus viridans Streptococcus salivarius Rothia species Oly albicans 05/13/17 14:44 Respiratory Culture - Final Right Upper Lobe Lung Staphylococcus aureus Aerococcus viridans Streptococcus salivarius#2 Rothia species Oly albicans 05/13/17 14:44 Acid Fast Stain - Final Left Upper Lobe Lung - Clinical Findings Intake & Output: Intake & Output 05/18/17 05/19/17 05/19/17 23:59 07:59 15:59 Output Total 400 / 400 450 / 450 50 / 50 Balance -400 / -400 -450 / -450 -50 / -50 Weight 77.655 kg
[2017-05-19] MEDS: NIFEdipine XL (24 HR) 30 MG TAB.ER.24 PO SCH (07:23)
[2017-05-19] MEDS: Furosemide 40 MG/4 ML VIAL IVP SCH (07:23)
[2017-05-19] MEDS: Aspirin Enteric Coated 81 MG Tablet PO SCH (07:24)
[2017-05-19] MEDS: Nystatin SUSP 5 ML UD.LIQ PO SCH ×4 (07:24→20:47)
[2017-05-19 07:29] LABS: Anisocytosis 1+ (Not Present); Lymphocytes # 0.7 K/mcL (0.6-4.6); Neutrophils # 10.5 K/mcL (1.6-8.9); Platelet Estimate Normal (Normal)
[2017-05-19 07:30] LABS: Macrocytosis Present (Not Present)
[2017-05-19] MEDS: Budesonide/Formoterol 160/4.5 MDI IH SCH ×2 (08:15→20:25)
[2017-05-19] MEDS ORDERED: Aminoglycoside Consult 1 EACH MC ONE (08:32)
--- NOTE | 2017-05-19 12:30 | Infectious Disease Progress No ---
Date of Encounter: 05/19/17 Time of Encounter: 12:27 - Assessment and Plan (1) Sepsis Current Visit: Yes Status: Acute The patient had two SIRS criteria on admission and subsequently developed tachypnea. He also developed leukocytosis. Likely secondary to pneumonia and cavitary lung lesion. The patient continues to have tachycardia and tachypnea. He has remained afebrile. Leukocytosis is improving. Blood cultures drawn 05/14/17 are NGTD x 2 sets. 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 infectious process. Status post bronchoscopy 05/13/[address] Elizondo. Note reviewed. BAL cultures shows Oly and four different causative organisms (MSSA, Aerococcus viridans , Streptococcus salivarius, and Rothia species) --> initially interpreted by micro as NURTF. AFB and GMS stains are negative. Antibiotics have been de-escalated by the pulmonology team. Continue Rocephin 1 gram IV daily. Duration of treatment depends on the clinical picture, but likely 4 weeks of IV antibiotics. (3) Acute respiratory failure with hypoxia Current Visit: Yes Status: Acute Likely multifactorial --> possible pulmonary fibrosis + possible infection + possible aspiration. Still requiring high FiO2. Pulmonology team consulted and following. (4) Pulmonary fibrosis Current Visit: Yes Status: Suspected CT chest shows diffuse bilateral pulmonary interstitial disease with a chronic appearance. 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 Pulmonology consulted and following. (5) Hypertension Current Visit: Yes Status: Chronic Qualifiers: Hypertension type: essential hypertension Qualified Code(s): I10 - Essential (primary) hypertension (6) History of CVA (cerebrovascular accident) Current Visit: No Status: Chronic (7) Oral thrush Current Visit: Yes Status: Acute Continue Nystatin swish and swallow. - Subjective Interval history: Patient seen and examined. Weekend notes reviewed. No acute events noted overnight. Patient sitting up in bed on high flow O2, becomes dyspneic when trying to speak. Denies chest pain and states his shortness of breath is a little better. Denies chest pain. Denies nausea, vomiting, or diarrhea. Denies abdominal pain. Denies urinary complaints. Denies new skin lesions. Infect Dis PN-Objective Data - Labs CBC & Chem 7: 05/20/17 03:31 05/20/17 03:31 Labs: Laboratory Results - last 24 hr 05/19/17 05/19/17 05/19/17 03:00 06:44 06:44 WBC 11.2 H RBC 3.60 L Hgb 9.4 L Hct 30.1 L MCV 83.6 MCH 26.1 L MCHC 31.2 L RDW 14.9 H Plt Count 245 MPV 9.7 Seg Neutrophils % 94.0 Lymphocytes % 6.0 Neutrophils # 10.5 H Lymphocytes # 0.7 Nucleated RBCs/100 WBC 0.2 H Platelet Estimate Normal Anisocytosis 1+ A Macrocytosis Present A Sodium 137 Potassium 4.7 H Chloride 101 Carbon Dioxide 30 H BUN 91 H Creatinine 1.45 H Est GFR ( Amer) 56 L Est GFR (Non-Af Amer) 46 L BUN/Creatinine Ratio 63 H Glucose 183 H Calculated Osmolality 317 H Calcium 8.6 Ionized Calcium 1.07 L Phosphorus 5.6 H Magnesium 2.9 H Cultures: Cultures 05/13/17 14:44 Fungal Culture - Preliminary Right Upper Lobe Lung Yeast Species 05/13/17 14:44 Fungal Culture - Preliminary Left Upper Lobe Lung Yeast Species 05/13/17 14:44 Gram Stain - Final Left Upper Lobe Lung Respiratory Culture - Final Staphylococcus aureus Aerococcus viridans Streptococcus salivarius Rothia species Oly albicans 05/13/17 14:44 Respiratory Culture - Final Right Upper Lobe Lung Staphylococcus aureus Aerococcus viridans Streptococcus salivarius#2 Rothia species Oly albicans 05/13/17 14:44 Acid Fast Stain - Final Left Upper Lobe Lung 05/14/17 17:02 Blood Culture - Preliminary Peripheral Venipuncture No growth. 05/14/17 17:02 Blood Culture - Preliminary Peripheral Venipuncture No growth. 05/13/17 14:44 Acid Fast Stain - Final Right Upper Lobe Lung 05/13/17 14:44 Gram Stain - Final Right Upper Lobe Lung Serology 05/14/17 05/13/17 05/13/17 Range/Units 21:35 14:44 14:44 Urine Color Yellow (Yellow) Urine Clarity Clear (Clear) Urine pH 5.0 (5.0-8.0) pH Units Ur Specific [place] 1.022 (1.010-1.025) Urine Protein Trace (Neg-Trace) mg/dL Urine Glucose (UA) Normal (Normal) mg/dL Urine Ketones Negative (Negative) mg/dL Urine Blood Negative (Negative) Urine Nitrite Negative (Negative) Urine Bilirubin Negative (Negative) Urine Urobilinogen Normal (Normal) mg/dL Ur Leukocyte Esterase Negative (Negative) Urine Microscopic RBC 3-5 H (0-3) per hpf Urine Microscopic WBC 0-3 (0-3) per hpf Ur Squamous Epith Cells Moderate H (None-Few) per lpf Urine Bacteria None Seen (None-Few) per hpf Hyaline Casts None Seen (None-Few) per lpf Fluid Source mercedes bal rul bal Fluid Volume 10 15 mL Fluid Appearance Cloudy A Slightly Hazy A (Clear) Fluid RBC TNP TNP Fld Tot Nucleated Cell TNP TNP Fluid Seg Neutrophil % 56.0 34.0 % Fluid Lymphocytes % 2.0 4.0 % Fluid Monocytes % 1.0 % Fluid Other Cells % 42.0 61.0 % Exam - Constitutional Vitals: Temp Pulse Resp BP Pulse Ox 97.5 F L 97 18 114/71 98 05/19/17 11:10 05/19/17 12:00 05/19/17 12:00 05/19/17 12:00 05/19/17 12:00 General appearance: cooperative, no acute distress, thin - Head Head exam: Present: atraumatic, normal inspection, normocephalic - Eye Eye exam: Present: EOMI, normal appearance, PERRL Pupils: Present: normal accommodation - ENT ENT exam: Present: mucous membranes moist - Neck Neck exam: Present: normal inspection - Respiratory Respiratory exam: Present: respiratory distress (mild, with speaking), rhonchi ( throughout), wheezes (coarse, expiratory). Absent: tachypnea - Cardiovascular Cardiovascular exam: Present: RRR, +S1, +S2 - GI/Abdominal GI/Abdominal exam: Present: normal bowel sounds, soft. Absent: distended, tenderness - Extremities Exam Extremities exam: Present: normal inspection. Absent: joint swelling, pedal edema, tenderness - Neurological Exam Neurological exam: Present: alert, oriented X3, no focal deficits - Psychiatric Psychiatric exam: Present: normal affect, normal mood - Skin Skin exam: Present: dry, intact, normal color, warm Consult Discharge Plan - Plan [facility]errals: [facility] Care Provider[facility] - 05/19/17 2:00 pm - Attending Attestation I examined this patient and my medical decision-making was reviewed with the Resident Physician. I agree with the documented findings, disposition and treatment plan as described except to the extent set forth below.
--- NOTE | 2017-05-19 16:28 | Palliative - Consult Note ---
Date of Encounter: 05/19/17 Time of Encounter: 14:00 - Assessment and Plan (1) Dyspnea Current Visit: Yes Status: Acute Assessment and plan: Supplemental oxygen currently at 8 L/m via nasal cannula. BiPAP when necessary. IV antibiotics, steroids, nebulizers per drag down. Position for comfort. Qualifiers: Dyspnea type: dyspnea on exertion Qualified Code(s): R06.09 - Other forms of dyspnea (2) Goals of care, counseling/discussion Current Visit: Yes Status: Acute Assessment and plan: Lengthy goals of care discussion with the patient, and daughters Acacia and Aislinn. Review goals of care, disease trajectory, treatment plan, discharge options. Reviewed advanced directives. Mr. Read is hesitant to make decisions without the input of his daughters. Encouraged family discussion throughout the evening, and palliative care for follow-up tomorrow. Also reviewed hospice eligibility. At this time, Mr. Read would like to pursue home health/rehabilitation upon discharge. (3) Pulmonary fibrosis Current Visit: Yes Status: Suspected (4) Acute respiratory failure with hypoxia Current Visit: Yes Status: Acute Palliative-CN HPI - Data of Consult Patient: new to practice Consult date: 05/19/17 Requesting Physician: Jesus Grant DO Primary Care Provider[facility] - Consult Narrative Palliative Care/Comfort Measures: Palliative care Reason for consult: Goals of Care History of present illness: Mr. Read is a 87 year old male initially presenting to [facility] with progressive shortness of breath that was worse with exertion. He was admitted to the hospital for treatment of pneumonia and pulmonary fibrosis. He did have a bronchoscopy with BAL on 05/13/2017. Infectious disease was consulted due to a cavitary lung lesion. with acute respiratory failure with hypoxia was managed with high flow oxygen and BiPAP therapy. He was placed on antibiotics, steroids, nebulizers. Antibiotics were DS collated following bronchoscopy culture results. The palliative care team was consulted given the underlying fibrotic interstitial lung disease. Mr. Read reports dyspnea with exertion and conversation. He has residual left-sided weakness following a CVA. Mr. Read has had a rapid decline in health over the past 3 weeks. Prior to that timeframe, he denies shortness of breath. His children (Acacia and Aislinn ) state he has not driven in that timeframe. Over the past 6 months, he has required assistance with grocery shopping and running errands. Mr. Read is able to ambulate on his own with a walker, and is able to shower on his own. He manages his own medications. He finds daron in managing his small garden on his porch and watching his wild animals. Mr. Read has difficulty with swallowing coarse textured foods. He eats mostly foods with mashed potato consistency and/or soup consistency. He has had a progressive loss in appetite over the past month. Although he may not have lost weight, his children report any noticeable change in his physical features to the face and chest. CC: Jesus Grant, DO Past Med Surg Social Fam HX - Past Medical History Attestation: Yes The following information was validated with the patient. Source: patient, old records reviewed, obtained from family Medical history: cancer (Bladder cancer), CVA, hyperlipidemia, hypertension - Past Surgical History Surgical History: cancer surgery (Removal of bladder tumors), herniorrhaphy - Social History Smoking Status: Former smoker (Quit approximately 25 years ago) Packs per day: 1 Smokeless Tobacco Status: No Alcohol use: none Drug use: none Occupational status: retired Current living situation: Home, With Family Activity Level: Uses cane/walker Recent Out of Country Travel Within the Last 8 Weeks: No Exposure or Possible Exposure to Illness During Travel: No Additional social history: Patient resides at home with his [id number]-48 years. He has daughters Acacia & Aislinn who are actively involved in his care. Acacia is planning to move in with her father upon discharge from the hospital. They have never had home health services. Mr. Read gets his routine health care at the [facility] on the [facility]. He does have a walker and wheelchair in the home already - Family History Father Living Status: Age at : 74 Cause of : cva Mother Living Status: Age at : 86 Cause of : cva Medications and Allergies Atorvastatin [Lipitor] 40 mg PO HS 05/12/17 [History] Latanoprost [Xalatan] 1 drop BOTH EYES HS 05/12/17 [History] NIFEdipine XL (24 HR) [Procardia XL] 30 mg PO DAILY 05/12/17 [History] Allergies No Known Allergies Allergy (Verified 05/12/17 18:24) All systems: reviewed and no additional remarkable complaints except as stated - Constitutional Constitutional ROS PAL: decreased appetite, fatigue, weight loss, no fever(s), no frequent falls - EENT Eyes: no change in vision Ears: no decreased hearing Ears, nose, mouth, throat: dry mouth, dysphagia - Cardiovascular Cardiovascular ROS: dyspnea on exertion, irregular heart rhythm, no chest pain, no chest pain at rest - Respiratory Respiratory: cough, dyspnea on exertion, no hemoptysis - Gastrointestinal Gastrointestinal: no abdominal pain, no constipation, no diarrhea, no nausea, no vomiting - Genitourinary Genitourinary ROS male: no difficulty urinating - Musculoskeletal Musculoskeletal ROS IM: muscle weakness (Residual left-sided weakness from prior CVA) - Integumentary ROS Integumentary: no wounds - Neurological Neurological ROS: lack of coordination (Left-sided weakness from prior CVA), no abnormal speech, no confusion, no numbness, no paresthesias - Psychiatric Psychiatric general PM: anxiety Palliative Care-Exam - Constitutional Vitals: Temp Pulse Resp BP Pulse Ox 97.6 F 103 24 137/88 95 05/19/17 15:17 05/19/17 13:00 05/19/17 15:45 05/19/17 13:00 05/19/17 15:45 General appearance: Present: cooperative, no acute distress, thin Exam: 87-year-old male patient, alert/oriented, interactive, appears chronically ill, dyspneic with conversation - Head Head Exam: Present: atraumatic - Eye Eye exam: Present: EOMI Pupils: Present: PERRL - ENT ENT exam: Present: mucous membranes dry - Respiratory Respiratory exam: Present: accessory muscle use (With exertion), respiratory distress (with exertion), rhonchi, wheezes - Cardiovascular Cardiovascular exam: Present: RRR. Absent: tachycardia - GI/Abdominal Exam GI/Abdominal exam: Present: normal bowel sounds, soft. Absent: tenderness - Extremities Exam Extremities exam: Absent: pedal edema - Expanded Upper Extremities Exam Forearm wrist exam: Present: swelling - Expanded Lower Extremities Exam Lower Leg exam: Present: swelling (Mild) - Neurological Exam Neurological exam: Present: alert, oriented X3, strengths equal and symetr throughout (Residual left-sided weakness from prior CVA). Absent: no focal deficits (Residual left-sided weakness from prior CVA) - Skin Skin exam: Present: dry, warm Internal Medicine - CN: Reslt - Labs CBC & Chem 7: 05/19/17 06:44 05/19/17 06:44 Labs: Short CBC 05/19/17 Range/Units 06:44 WBC 11.2 H (4.3-11.1) K/mcL Hgb 9.4 L (12.9-16.9) g/dL Hct 30.1 L (37.5-50.1) % Plt Count 245 (140-400) K/mcL Neutrophils # 10.5 H (1.6-8.9) K/mcL BMP 05/19/17 06:44 Sodium 137 Potassium 4.7 H Chloride 101 Carbon Dioxide 30 H BUN 91 H Creatinine 1.45 H Glucose 183 H Calcium 8.6 Consult Discharge Plan - Plan Referrals: [facility] [Primary Care Provider] - 05/19/17 2:00 pm Palliative Quality Palliative Quality: Screen for Code Status: Yes, Screen for Goals of Care: Yes, Screen for Pain: Yes, If Pain Regimen Started, Initiate Bowel Regimen: NA, Screen for Nausea/Vomitting: Yes
[2017-05-19] MEDS: Latanoprost 2.5 ML BOTTLE BOTH EYES SCH (20:47)
[2017-05-19] MEDS: clonazePAM 0.5 MG TABLET PO PRN (23:17)
[2017-05-20] MEDS: Ipratropium/Albuterol Neb 3 ML IH SCH ×7 (00:52→23:33)
[2017-05-20 03:39] LABS: Basophils % 0.1 %; Hematocrit 28.6 % (37.5-50.1); Hemoglobin 9.2 g/dL (12.9-16.9); Immature Granulocytes % 1.9 % (0-4); Immature Platelets 3.4 % (1.1-6.1); Lymphocytes # 0.2 K/mcL (0.6-4.6); Lymphocytes % 1.2 %; Mean Corpuscular HGB Conc 32.2 g/dL (31.6-35.5); Mean Corpuscular Hemoglobin 26.8 pg (28.0-33.3); Mean Corpuscular Volume 83.4 fL (83.0-100.0); Monocytes # 0.7 K/mcL (0.0-1.3); Monocytes % 5.3 %; Nucleated Red Blood Cells 0.2 /100 WBC (0); Platelet Count 260 K/mcL (140-400); Red Blood Count 3.43 M/mcL (4.19-5.50); Segmented Neutrophils % 91.5 %
[2017-05-20 03:51] LABS: Calcium 8.5 mg/dL (8.6-10.8); Magnesium 3.1 mg/dL (1.6-2.6); Potassium 4.8 mEq/L (3.5-4.5)
[2017-05-20 04:01] LABS: Platelet Estimate Normal (Normal)
[2017-05-20 04:02] LABS: Hypochromasia Present (Not Present)
[2017-05-20] MEDS: *HR* Heparin 5,000 UNIT/ML VIAL SQ SCH ×2 (05:39→17:59)
[2017-05-20] MEDS: MethylPREDNISolone 40 MG/ML VIAL IVP SCH (05:40)
--- NOTE | 2017-05-20 07:12 | Pulmonology Progress Note ---
<RadhaEdenilson ward - Last Filed: 05/20/17 07:09> Date of Encounter: 05/20/17 Time of Encounter: 07:09 Assessment and Plan (1) Acute respiratory failure with hypoxia Current Visit: Yes Status: Acute Related to underlying lung pathology of unclear etiology at this point. Interstitial lung disease including pneumoconiosis, infection, aspiration, and pulmonary edema are all considerations. Culture sent from bronchoscopy showed normal respiratory jairon and antibiotics been descalated. Patient is tolerating high flow nasal cannula at this time. Did not require BiPAP overnight. Continue monitoring in the ICU. Patient and family have had discussions on the patient's long-term goals of care in the palliative care team has been involved in discussing goals and plan of care. Unfortunately there is not been much improvement in the patient's lung function despite treatment which likely indicates that this is a chronic underlying issue with a poor prognosis. 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 We will continue with supplemental oxygen. Patient received 1 dose of Solu-Medrol the emergency department, we will hold off further steroids at this time. We will consult pulmonology. Patient will likely need O2 qualification prior to discharge. Subjective Principal diagnosis: Acute respiratory failure with hypoxia Interval history: Patient seen and examined at bedside. Patient states that he feels about the same today. He still feels slightly short of breath but this is unchanged from the last few days. He did not wear BiPAP overnight as he did not feel that he needed it. Objective PUL Vital signs: Last Vital Signs Temp 96.4 F L 05/20/17 04:59 Pulse 93 05/20/17 06:00 Resp 22 05/20/17 06:00 BP 164/74 05/20/17 06:00 Pulse Ox 98 05/20/17 06:00 General appearance: no acute distress ENT: oropharynx moist Effort: mildly labored Auscultation: bilateral: rhonchi Cardiovascular: regular rate and rhythm Gastrointestinal: normoactive bowel sounds, soft, non-tender, non-distended Extremities: no cyanosis, no edema, no clubbing normal mental status, non-focal exam Results - Laboratory Findings CBC and BMP: 05/20/17 03:31 05/20/17 03:31 Abnormal lab findings: Abnormal lab results WBC 13.1 K/mcL (4.3-11.1) H 05/20/17 03:31 RBC 3.43 M/mcL (4.19-5.50) L 05/20/17 03:31 Hgb 9.2 g/dL (12.9-16.9) L 05/20/17 03:31 Hct 28.6 % (37.5-50.1) L 05/20/17 03:31 MCH 26.8 pg (28.0-33.3) L 05/20/17 03:31 RDW 15.0 % (11.5-14.5) H 05/20/17 03:31 Neutrophils # 12.0 K/mcL (1.6-8.9) H 05/20/17 03:31 Lymphocytes # 0.2 K/mcL (0.6-4.6) L 05/20/17 03:31 Nucleated RBCs/100 WBC 0.2 /100 WBC (0) H 05/20/17 03:31 Hypersegmented Neuts Present (Not Present) A 05/17/17 03:55 Large Platelets Present (Not Present) A 05/16/17 03:25 Hypochromasia Present (Not Present) A 05/20/17 03:31 Anisocytosis 1+ (Not Present) A 05/19/17 06:44 Macrocytosis Present (Not Present) A 05/19/17 06:44 ESR >= 130 mm/hr (0-10) H 05/13/17 13:03 VBG pH 7.46 pH Units (7.32-7.42) H 05/12/17 21:22 VBG pCO2 39 mmHg (41-51) L 05/12/17 21:22 VBG pO2 44 mmHg (25-40) H 05/12/17 21:22 VBG HCO3 27.7 mEq/L (21-27) H 05/12/17 21:22 Potassium 4.8 mEq/L (3.5-4.5) H 05/20/17 03:31 BUN 97 mg/dL (8-26) H 05/20/17 03:31 Creatinine 1.56 mg/dL (0.72-1.25) H 05/20/17 03:31 Est GFR ( Amer) 51 (> 60) L 05/20/17 03:31 Est GFR (Non-Af Amer) 42 (> 60) L 05/20/17 03:31 BUN/Creatinine Ratio 62 (6-26) H 05/20/17 03:31 Glucose 172 mg/dL (70-99) H 05/20/17 03:31 POC Glucose 133 (58-89) H 05/14/17 11:06 Calculated Osmolality 316 (280-300) H 05/20/17 03:31 Calcium 8.5 mg/dL (8.6-10.8) L 05/20/17 03:31 Ionized Calcium 1.07 mmol/L (1.15-1.35) L 05/19/17 03:00 Phosphorus 5.6 mg/dL (2.3-4.7) H 05/19/17 03:00 Magnesium 3.1 mg/dL (1.6-2.6) H 05/20/17 03:31 C-Reactive Protein 41 mg/L (Less than 5) H 05/13/17 13:03 B-Natriuretic Peptide 362 pg/mL (0-100) H 05/12/17 18:52 Albumin 2.9 g/dL (3.5-5.0) L 05/14/17 04:17 Globulin 4.5 g/dL (2.4-3.5) H 05/14/17 04:17 Albumin/Globulin Ratio 0.6 (1.1-2.2) L 05/14/17 04:17 Urine Microscopic RBC 3-5 per hpf (0-3) H 05/14/17 21:35 Ur Squamous Epith Cells Moderate per lpf (None-Few) H 05/14/17 21:35 Fluid Appearance Cloudy (Clear) A 05/13/17 14:44 TIMOTHY Screen DETECTED (None Detected) A 05/13/17 13:03 TIMOTHY Titer 1:5120 (<1:40) H 05/13/17 13:03 - Microbiology Findings Microbiology Findings: Microbiology, Last 48 Hours 05/14/17 17:02 Blood Culture - Final Peripheral Venipuncture No growth. 05/14/17 17:02 Blood Culture - Final Peripheral Venipuncture No growth. 05/13/17 14:44 Fungal Culture - Preliminary Right Upper Lobe Lung Yeast Species 05/13/17 14:44 Fungal Culture - Preliminary Left Upper Lobe Lung Yeast Species 05/13/17 14:44 Gram Stain - Final Left Upper Lobe Lung Respiratory Culture - Final Staphylococcus aureus Aerococcus viridans Streptococcus salivarius Rothia species Oly albicans 05/13/17 14:44 Respiratory Culture - Final Right Upper Lobe Lung Staphylococcus aureus Aerococcus viridans Streptococcus salivarius#2 Rothia species Oly albicans 05/13/17 14:44 Acid Fast Stain - Final Left Upper Lobe Lung - Clinical Findings Intake & Output: Intake & Output 05/19/17 05/19/17 05/20/17 15:59 23:59 07:59 Intake Total 100 / 100 Output Total 50 / 50 125 / 125 325 / 325 Balance -50 / -50 -125 / -125 -225 / -225 Weight 75.387 kg Consult Discharge Plan - Plan [facility] Care Provider[facility] - 05/19/17 2:00 pm <Jesus Grant - Last Filed: 05/20/17 12:36> Date of Encounter: 05/20/17 Assessment and Plan (1) Acute respiratory failure with hypoxia Current Visit: Yes Status: Acute Code(s): J96.01 - Acute respiratory failure with hypoxia Objective PUL Vital signs: Last Vital Signs Temp 96.4 F L 05/20/17 04:59 Pulse 95 05/20/17 10:00 Resp 22 05/20/17 11:35 BP 129/66 05/20/17 10:00 Pulse Ox 96 05/20/17 11:35 Results - Laboratory Findings CBC and BMP: 05/20/17 03:31 05/20/17 03:31 Abnormal lab findings: Abnormal lab results WBC 13.1 K/mcL (4.3-11.1) H 05/20/17 03:31 RBC 3.43 M/mcL (4.19-5.50) L 05/20/17 03:31 Hgb 9.2 g/dL (12.9-16.9) L 05/20/17 03:31 Hct 28.6 % (37.5-50.1) L 05/20/17 03:31 MCH 26.8 pg (28.0-33.3) L 05/20/17 03:31 RDW 15.0 % (11.5-14.5) H 05/20/17 03:31 Neutrophils # 12.0 K/mcL (1.6-8.9) H 05/20/17 03:31 Lymphocytes # 0.2 K/mcL (0.6-4.6) L 05/20/17 03:31 Nucleated RBCs/100 WBC 0.2 /100 WBC (0) H 05/20/17 03:31 Hypersegmented Neuts Present (Not Present) A 05/17/17 03:55 Large Platelets Present (Not Present) A 05/16/17 03:25 Hypochromasia Present (Not Present) A 05/20/17 03:31 Anisocytosis 1+ (Not Present) A 05/19/17 06:44 Macrocytosis Present (Not Present) A 05/19/17 06:44 ESR >= 130 mm/hr (0-10) H 05/13/17 13:03 VBG pH 7.46 pH Units (7.32-7.42) H 05/12/17 21:22 VBG pCO2 39 mmHg (41-51) L 05/12/17 21:22 VBG pO2 44 mmHg (25-40) H 05/12/17 21:22 VBG HCO3 27.7 mEq/L (21-27) H 05/12/17 21:22 Potassium 4.8 mEq/L (3.5-4.5) H 05/20/17 03:31 BUN 97 mg/dL (8-26) H 05/20/17 03:31 Creatinine 1.56 mg/dL (0.72-1.25) H 05/20/17 03:31 Est GFR ( Amer) 51 (> 60) L 05/20/17 03:31 Est GFR (Non-Af Amer) 42 (> 60) L 05/20/17 03:31 BUN/Creatinine Ratio 62 (6-26) H 05/20/17 03:31 Glucose 172 mg/dL (70-99) H 05/20/17 03:31 POC Glucose 133 (58-89) H 05/14/17 11:06 Calculated Osmolality 316 (280-300) H 05/20/17 03:31 Calcium 8.5 mg/dL (8.6-10.8) L 05/20/17 03:31 Ionized Calcium 1.07 mmol/L (1.15-1.35) L 05/19/17 03:00 Phosphorus 5.6 mg/dL (2.3-4.7) H 05/19/17 03:00 Magnesium 3.1 mg/dL (1.6-2.6) H 05/20/17 03:31 C-Reactive Protein 41 mg/L (Less than 5) H 05/13/17 13:03 B-Natriuretic Peptide 362 pg/mL (0-100) H 05/12/17 18:52 Albumin 2.9 g/dL (3.5-5.0) L 05/14/17 04:17 Globulin 4.5 g/dL (2.4-3.5) H 05/14/17 04:17 Albumin/Globulin Ratio 0.6 (1.1-2.2) L 05/14/17 04:17 Urine Microscopic RBC 3-5 per hpf (0-3) H 05/14/17 21:35 Ur Squamous Epith Cells Moderate per lpf (None-Few) H 05/14/17 21:35 Fluid Appearance Cloudy (Clear) A 05/13/17 14:44 TIMOTHY Screen DETECTED (None Detected) A 05/13/17 13:03 TIMOTHY Titer 1:5120 (<1:40) H 05/13/17 13:03 - Microbiology Findings Microbiology Findings: Microbiology, Last 48 Hours 05/14/17 17:02 Blood Culture - Final Peripheral Venipuncture No growth. 05/14/17 17:02 Blood Culture - Final Peripheral Venipuncture No growth. 05/13/17 14:44 Fungal Culture - Preliminary Right Upper Lobe Lung Yeast Species 05/13/17 14:44 Fungal Culture - Preliminary Left Upper Lobe Lung Yeast Species 05/13/17 14:44 Gram Stain - Final Left Upper Lobe Lung Respiratory Culture - Final Staphylococcus aureus Aerococcus viridans Streptococcus salivarius Rothia species Oly albicans 05/13/17 14:44 Respiratory Culture - Final Right Upper Lobe Lung Staphylococcus aureus Aerococcus viridans Streptococcus salivarius#2 Rothia species Oly albicans - Clinical Findings Intake & Output: Intake & Output 05/19/17 05/20/17 05/20/17 23:59 07:59 15:59 Intake Total 100 / 100 Output Total 125 / 125 325 / 325 0 / 0 Balance -125 / -125 -225 / -225 0 / 0 Weight 75.387 kg
[2017-05-20] MEDS: Furosemide 40 MG/4 ML VIAL IVP SCH (07:16)
[2017-05-20] MEDS: Nystatin SUSP 5 ML UD.LIQ PO SCH ×4 (07:16→20:37)
[2017-05-20] MEDS: NIFEdipine XL (24 HR) 30 MG TAB.ER.24 PO SCH (07:16)
[2017-05-20] MEDS: Aspirin Enteric Coated 81 MG Tablet PO SCH (07:16)
--- NOTE | 2017-05-20 08:31 | Venous Imaging Report ---
LE Venous Duplex Patient Name:Julio C Read Order Number:[id number] Procedure Date:05/19/2017 Date:1930Age:87 yrs Gender:Male Location:[facility] Room #: IC2 Fashion Buyer:Mimi Brooks Referring MD:Jesus Grant DO bean picker:[facility] Reading MD:Jd Millard MD , FACS Secondary Indications: Risk Factors Yes/No Anticoagulants No Hx of DVT No Hx of Chemotherapy Yes Impressions: Bilateral lower extremity: normal superficial and deep exam. Recommendations: Test completed on 05/19/2017 at 7:20:00 am. Critical findings reported to Grisel DALLAS in person at 7:23:00 am on 05/19/2017 by Mimi Brooks. Findings Venous Duplex Results: Right: Venous imaging of the lower extremity reveals full patency and normal vessel compressibility of the right distal iliac, right common femoral, right superficial femoral, right popliteal, right posterior tibial, right peroneal, right great saphenous and right lesser saphenous. Doppler signals in the evaluated veins were normal. Left: Venous imaging of the lower extremity reveals full patency and normal vessel compressibility of the left distal iliac, left common femoral, left superficial femoral, left popliteal, left posterior tibial, left peroneal, left great saphenous and left lesser saphenous. Doppler signals in the evaluated veins were normal. Lower Extremity Venous Duplex Side Vein Compress Spontaneous Flow Augment Diameter (cm) Depth (cm) Right Distal Iliac Normal Yes Phasic Yes Right Common Femoral Normal Yes Phasic Yes Right Superficial Femoral Normal Yes Phasic Yes Right Popliteal Normal Yes Phasic Yes Right Posterior Tibial Normal Yes Phasic Yes Right Peroneal Normal Yes Phasic Yes Right Great Saphenous Normal Yes Phasic Yes Right Lesser Saphenous Normal Yes Phasic Yes Left Distal Iliac Normal Yes Phasic Yes Left Common Femoral Normal Yes Phasic Yes Left Superficial Femoral Normal Yes Phasic Yes Left Popliteal Normal Yes Phasic Yes Left Posterior Tibial Normal Yes Phasic Yes Left Peroneal Normal Yes Phasic Yes Left Great Saphenous Normal Yes Phasic Yes Left Lesser Saphenous Normal Yes Phasic Yes Updated by Jd Millard MD, FACS on 05/20/2017 8:25:03 AM Jd Millard MD electronically signed on 05/20/2017 8:25:31 AM with status of Final
[2017-05-20] MEDS: Budesonide/Formoterol 160/4.5 MDI IH SCH ×2 (08:32→19:37)
--- NOTE | 2017-05-20 16:08 | Palliative Progress Note ---
Date of Encounter: 05/20/17 Time of Encounter: 14:30 (.) - Assessment and plan (1) Dyspnea Current Visit: Yes Status: Acute Assessment and plan: Supplemental oxygen, steroids changed to oral, BiPAP PRN. Qualifiers: Dyspnea type: dyspnea on exertion Qualified Code(s): R06.09 - Other forms of dyspnea (2) Goals of care, counseling/discussion Current Visit: Yes Status: Acute Assessment and plan: Follow-up goals of care conversation with the patient, daughter's Bonnie, son Jose Feliciano, spouse Kaye. Reviewed discussion from yesterday. Mr. Read is still interested in seeking therapy services for strengthening. Family would like to seek the opinion of Dr. Elizondo regarding his pulmonary status. Family requests diet be changed to pureed. (3) Pulmonary fibrosis Current Visit: Yes Status: Suspected (4) Acute respiratory failure with hypoxia Current Visit: Yes Status: Acute - Time Spent With Patient Total time spent is greater than 50% in coordination of care (as documented) at patient's floor/unit and/or counseling patient: - Subjective Interval history: Mr. Read is sitting up in bed with family at bedside. He did not participate in physical therapy due to his breathing. His appetite continues to be poor and his family requests a change in diet to pureed food. - Constitutional Vitals: Abnormal lab results WBC 13.1 K/mcL (4.3-11.1) H 05/20/17 03:31 RBC 3.43 M/mcL (4.19-5.50) L 05/20/17 03:31 Hgb 9.2 g/dL (12.9-16.9) L 05/20/17 03:31 Hct 28.6 % (37.5-50.1) L 05/20/17 03:31 MCH 26.8 pg (28.0-33.3) L 05/20/17 03:31 RDW 15.0 % (11.5-14.5) H 05/20/17 03:31 Neutrophils # 12.0 K/mcL (1.6-8.9) H 05/20/17 03:31 Lymphocytes # 0.2 K/mcL (0.6-4.6) L 05/20/17 03:31 Nucleated RBCs/100 WBC 0.2 /100 WBC (0) H 05/20/17 03:31 Hypersegmented Neuts Present (Not Present) A 05/17/17 03:55 Large Platelets Present (Not Present) A 05/16/17 03:25 Hypochromasia Present (Not Present) A 05/20/17 03:31 Anisocytosis 1+ (Not Present) A 05/19/17 06:44 Macrocytosis Present (Not Present) A 05/19/17 06:44 ESR >= 130 mm/hr (0-10) H 05/13/17 13:03 VBG pH 7.46 pH Units (7.32-7.42) H 05/12/17 21:22 VBG pCO2 39 mmHg (41-51) L 05/12/17 21:22 VBG pO2 44 mmHg (25-40) H 05/12/17 21:22 VBG HCO3 27.7 mEq/L (21-27) H 05/12/17 21:22 Potassium 4.8 mEq/L (3.5-4.5) H 05/20/17 03:31 BUN 97 mg/dL (8-26) H 05/20/17 03:31 Creatinine 1.56 mg/dL (0.72-1.25) H 05/20/17 03:31 Est GFR ( Amer) 51 (> 60) L 05/20/17 03:31 Est GFR (Non-Af Amer) 42 (> 60) L 05/20/17 03:31 BUN/Creatinine Ratio 62 (6-26) H 05/20/17 03:31 Glucose 172 mg/dL (70-99) H 05/20/17 03:31 POC Glucose 133 (58-89) H 05/14/17 11:06 Calculated Osmolality 316 (280-300) H 05/20/17 03:31 Calcium 8.5 mg/dL (8.6-10.8) L 05/20/17 03:31 Ionized Calcium 1.07 mmol/L (1.15-1.35) L 05/19/17 03:00 Phosphorus 5.6 mg/dL (2.3-4.7) H 05/19/17 03:00 Magnesium 3.1 mg/dL (1.6-2.6) H 05/20/17 03:31 C-Reactive Protein 41 mg/L (Less than 5) H 05/13/17 13:03 B-Natriuretic Peptide 362 pg/mL (0-100) H 05/12/17 18:52 Albumin 2.9 g/dL (3.5-5.0) L 05/14/17 04:17 Globulin 4.5 g/dL (2.4-3.5) H 05/14/17 04:17 Albumin/Globulin Ratio 0.6 (1.1-2.2) L 05/14/17 04:17 Urine Microscopic RBC 3-5 per hpf (0-3) H 05/14/17 21:35 Ur Squamous Epith Cells Moderate per lpf (None-Few) H 05/14/17 21:35 Fluid Appearance Cloudy (Clear) A 05/13/17 14:44 TIMOTHY Screen DETECTED (None Detected) A 05/13/17 13:03 TIMOTHY Titer 1:5120 (<1:40) H 05/13/17 13:03 General appearance: Present: cooperative Exam: 87 year old male, dyspenic with conversation, appears chronically ill. - Eye Eye exam: Present: EOMI, PERRL - ENT ENT exam: Present: mucous membranes moist - Respiratory Respiratory exam: Present: accessory muscle use, prolonged expiratory phase, respiratory distress, rhonchi, wheezes, tachypnea - Cardiovascular Cardiovascular exam: Present: RRR - GI/Abdominal GI/Abdominal exam: Present: normal bowel sounds, soft. Absent: tenderness - Extremities Exam Additional comments: left sided chronic mild edema - Neurological Exam Neurological exam: Present: alert, oriented X3, no focal deficits, strengths equal and symetr throughout - Psychiatric Psychiatric exam: Present: anxious. Absent: agitated - Skin Skin exam: Present: dry, warm Palliative Quality Palliative Quality: Screen for Code Status: Yes, Screen for Goals of Care: Yes, Screen for Pain: Yes, If Pain Regimen Started, Initiate Bowel Regimen: NA, Screen for Nausea/Vomitting: Yes - Labs CBC & Chem 7: 05/20/17 03:31 05/20/17 03:31 Labs: Laboratory Results - last 24 hr 05/20/17 05/20/17 03:31 03:31 WBC 13.1 H RBC 3.43 L Hgb 9.2 L Hct 28.6 L MCV 83.4 MCH 26.8 L MCHC 32.2 RDW 15.0 H Plt Count 260 MPV 10.0 Immature Gran % 1.9 Seg Neutrophils % 91.5 Lymphocytes % 1.2 Monocytes % 5.3 Eosinophils % 0.0 Basophils % 0.1 Neutrophils # 12.0 H Lymphocytes # 0.2 L Monocytes # 0.7 Eosinophils # 0.0 Basophils # 0.0 Nucleated RBCs/100 WBC 0.2 H Platelet Estimate Normal Immature Plt Fraction 3.4 Hypochromasia Present A Sodium 136 Potassium 4.8 H Chloride 99 Carbon Dioxide 29 BUN 97 H Creatinine 1.56 H Est GFR ( Amer) 51 L Est GFR (Non-Af Amer) 42 L BUN/Creatinine Ratio 62 H Glucose 172 H Calculated Osmolality 316 H Calcium 8.5 L Magnesium 3.1 H - Impressions Impressions Chest X-Ray 05/16/17 08:18 IMPRESSION: Stable appearance of the chest. Diffuse pulmonary opacities and pleural thickening which is in part chronic. A superimposed acute process is difficult to entirely exclude. D/ / 05/16/2017 09:20:17 Peyton Mann MD / kayla Interpreting Provider: Peyton Mann MD Chest X-Ray 05/20/17 06:00 IMPRESSION: Stable exam. There has been no improvement since the comparison studies. D/ / Brett Gonzalez MD / Brett Gonzalez MD Interpreting Provider: Brett Gonzalez MD Consult Discharge Plan - Plan [facility]errals: [facility] [Primary Care Provider[facility] - 05/19/17 2:00 pm
[2017-05-20] MEDS: predniSONE 20 MG TABLET PO SCH (17:59)
[2017-05-20] MEDS: Latanoprost 2.5 ML BOTTLE BOTH EYES SCH (20:42)
[2017-05-21 03:21] LABS: Basophils % 0.2 %; Hematocrit 29.6 % (37.5-50.1); Hemoglobin 9.2 g/dL (12.9-16.9); Immature Granulocytes % 3.5 % (0-4); Lymphocytes % 0.9 %; Mean Corpuscular HGB Conc 31.1 g/dL (31.6-35.5); Mean Corpuscular Hemoglobin 25.5 pg (28.0-33.3); Mean Platelet Volume 10.7 fL (9.4-12.4); Monocytes # 1.2 K/mcL (0.0-1.3); Monocytes % 7.4 %; Neutrophils # 14.1 K/mcL (1.6-8.9); Nucleated Red Blood Cells 0.1 /100 WBC (0); Platelet Count 253 K/mcL (140-400); Red Blood Count 3.61 M/mcL (4.19-5.50)
[2017-05-21 03:31] LABS: Lymphocytes # 0.1 K/mcL (0.6-4.6)
[2017-05-21 03:41] LABS: Calcium 8.4 mg/dL (8.6-10.8); Magnesium 3.3 mg/dL (1.6-2.6); Potassium 4.4 mEq/L (3.5-4.5)
[2017-05-21 03:50] LABS: Platelet Estimate Normal (Normal)
[2017-05-21] MEDS: Ipratropium/Albuterol Neb 3 ML IH SCH ×4 (04:23→15:36)
[2017-05-21] MEDS: *HR* Heparin 5,000 UNIT/ML VIAL SQ SCH (05:04)
[2017-05-21] MEDS: Budesonide/Formoterol 160/4.5 MDI IH SCH ×2 (08:01→20:22)
[2017-05-21] MEDS ORDERED: Furosemide 20 MG TABLET PO SCH (09:00)
[2017-05-21] MEDS: Nystatin SUSP 5 ML UD.LIQ PO SCH ×2 (09:21→13:19)
[2017-05-21] MEDS: Aspirin Enteric Coated 81 MG Tablet PO SCH (09:21)
[2017-05-21] MEDS: NIFEdipine XL (24 HR) 30 MG TAB.ER.24 PO SCH (09:21)
[2017-05-21] MEDS: predniSONE 20 MG TABLET PO SCH (09:21)
--- NOTE | 2017-05-21 09:24 | Pulmonology Progress Note ---
<Edenilson Vasques - Last Filed: 05/21/17 09:20> Date of Encounter: 05/21/17 Time of Encounter: 09:20 Assessment and Plan (1) Acute respiratory failure with hypoxia Current Visit: Yes Status: Acute Related to underlying lung pathology of unclear etiology at this point. Interstitial lung disease including pneumoconiosis, infection, aspiration, and pulmonary edema are all considerations. Culture sent from bronchoscopy showed normal respiratory jairon and antibiotics been descalated. Patient is tolerating nasal cannula at this time with oxygen requirements down to 3 L. Did not require BiPAP overnight. Repeat CT scan of the chest shows no improvement with perhaps mild worsening of the patient's interstitial lung disease. Patient and family have had discussions on the patient's long-term goals of care in the palliative care team has been involved in discussing goals and plan of care. Unfortunately there is not been much improvement in the patient's lung function despite treatment which likely indicates that this is a chronic underlying issue with a poor prognosis. At this time the patient states that his goals are to return home and focus on quality of life rather than quantity. We will discuss with palliative care team what services the patient could benefit from at home and plan for possible transfer to the floor for discharge home later today. Patient has difficulty by mouth intake given his severe dyspnea. Continue supplementation as tolerated. Nutrition is following. 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 We will continue with supplemental oxygen. Patient received 1 dose of Solu-Medrol the emergency department, we will hold off further steroids at this time. We will consult pulmonology. Patient will likely need O2 qualification prior to discharge. (3) Protein-calorie malnutrition, moderate Current Visit: Yes Status: Acute Subjective Principal diagnosis: Acute respiratory failure with hypoxia Interval history: Patient seen and examined at bedside. Patient states that he feels about the same today. He still feels slightly short of breath but this is unchanged from the last few days. He did not wear BiPAP overnight as he did not feel that he needed it. He is still having significant weakness requiring assist when getting out of bed. Objective PUL Vital signs: Last Vital Signs Temp 97.7 F 05/21/17 07:57 Pulse 95 05/21/17 08:00 Resp 19 05/21/17 08:00 BP 160/75 05/21/17 08:00 Pulse Ox 100 05/21/17 08:00 General appearance: other (Mild conversational dyspnea) ENT: oropharynx moist Effort: normal Auscultation: bilateral: wheezes, rales, rhonchi Cardiovascular: regular rate and rhythm Gastrointestinal: normoactive bowel sounds, soft, non-tender, non-distended Extremities: no cyanosis, no edema, no clubbing normal mental status, non-focal exam Results - Laboratory Findings CBC and BMP: 05/21/17 03:00 05/21/17 03:00 Abnormal lab findings: Abnormal lab results WBC 16.0 K/mcL (4.3-11.1) H 05/21/17 03:00 RBC 3.61 M/mcL (4.19-5.50) L 05/21/17 03:00 Hgb 9.2 g/dL (12.9-16.9) L 05/21/17 03:00 Hct 29.6 % (37.5-50.1) L 05/21/17 03:00 MCV 82.0 fL (83.0-100.0) L 05/21/17 03:00 MCH 25.5 pg (28.0-33.3) L 05/21/17 03:00 MCHC 31.1 g/dL (31.6-35.5) L 05/21/17 03:00 RDW 15.0 % (11.5-14.5) H 05/21/17 03:00 Neutrophils # 14.1 K/mcL (1.6-8.9) H 05/21/17 03:00 Lymphocytes # 0.1 K/mcL (0.6-4.6) L 05/21/17 03:00 Nucleated RBCs/100 WBC 0.1 /100 WBC (0) H 05/21/17 03:00 Hypersegmented Neuts Present (Not Present) A 05/17/17 03:55 Large Platelets Present (Not Present) A 05/16/17 03:25 Hypochromasia Present (Not Present) A 05/20/17 03:31 Anisocytosis 1+ (Not Present) A 05/19/17 06:44 Macrocytosis Present (Not Present) A 05/19/17 06:44 ESR >= 130 mm/hr (0-10) H 05/13/17 13:03 VBG pH 7.46 pH Units (7.32-7.42) H 05/12/17 21:22 VBG pCO2 39 mmHg (41-51) L 05/12/17 21:22 VBG pO2 44 mmHg (25-40) H 05/12/17 21:22 VBG HCO3 27.7 mEq/L (21-27) H 05/12/17 21:22 BUN 94 mg/dL (8-26) H 05/21/17 03:00 Creatinine 1.47 mg/dL (0.72-1.25) H 05/21/17 03:00 Est GFR ( Amer) 55 (> 60) L 05/21/17 03:00 Est GFR (Non-Af Amer) 45 (> 60) L 05/21/17 03:00 BUN/Creatinine Ratio 64 (6-26) H 05/21/17 03:00 Glucose 159 mg/dL (70-99) H 05/21/17 03:00 POC Glucose 133 (58-89) H 05/14/17 11:06 Calculated Osmolality 316 (280-300) H 05/21/17 03:00 Calcium 8.4 mg/dL (8.6-10.8) L 05/21/17 03:00 Ionized Calcium 1.07 mmol/L (1.15-1.35) L 05/19/17 03:00 Phosphorus 5.6 mg/dL (2.3-4.7) H 05/19/17 03:00 Magnesium 3.3 mg/dL (1.6-2.6) H 05/21/17 03:00 C-Reactive Protein 41 mg/L (Less than 5) H 05/13/17 13:03 B-Natriuretic Peptide 362 pg/mL (0-100) H 05/12/17 18:52 Albumin 2.9 g/dL (3.5-5.0) L 05/14/17 04:17 Globulin 4.5 g/dL (2.4-3.5) H 05/14/17 04:17 Albumin/Globulin Ratio 0.6 (1.1-2.2) L 05/14/17 04:17 Urine Microscopic RBC 3-5 per hpf (0-3) H 05/14/17 21:35 Ur Squamous Epith Cells Moderate per lpf (None-Few) H 05/14/17 21:35 Fluid Appearance Cloudy (Clear) A 05/13/17 14:44 TIMOTHY Screen DETECTED (None Detected) A 05/13/17 13:03 TIMOTHY Titer 1:5120 (<1:40) H 05/13/17 13:03 - Microbiology Findings Microbiology Findings: Microbiology, Last 48 Hours 05/13/17 14:44 Acid Fast Stain - Final Right Upper Lobe Lung 05/13/17 14:44 Fungal Culture - Preliminary Right Upper Lobe Lung Oly albicans 05/13/17 14:44 Fungal Culture - Preliminary Left Upper Lobe Lung Oly albicans 05/14/17 17:02 Blood Culture - Final Peripheral Venipuncture No growth. 05/14/17 17:02 Blood Culture - Final Peripheral Venipuncture No growth. 05/13/17 14:44 Gram Stain - Final Left Upper Lobe Lung Respiratory Culture - Final Staphylococcus aureus Aerococcus viridans Streptococcus salivarius Rothia species Oly albicans 05/13/17 14:44 Respiratory Culture - Final Right Upper Lobe Lung Staphylococcus aureus Aerococcus viridans Streptococcus salivarius#2 Rothia species Oly albicans - Clinical Findings Intake & Output: Intake & Output 05/20/17 05/21/17 05/21/17 23:59 07:59 15:59 Output Total 200 / 200 200 / 200 Balance -200 / -200 -200 / -200 Weight 76 kg Consult Discharge Plan - Plan [facility]: [facility] Care Provider[facility] - 05/19/17 2:00 pm <Jesus Grant - Last Filed: 05/21/17 09:35> Date of Encounter: 05/21/17 Assessment and Plan (1) Acute respiratory failure with hypoxia Current Visit: Yes Status: Acute Code(s): J96.01 - Acute respiratory failure with hypoxia Objective PUL Vital signs: Last Vital Signs Temp 97.7 F 05/21/17 07:57 Pulse 97 05/21/17 09:00 Resp 19 05/21/17 09:00 BP 154/81 05/21/17 09:00 Pulse Ox 92 05/21/17 09:00 Results - Laboratory Findings CBC and BMP: 05/21/17 03:00 05/21/17 03:00 Abnormal lab findings: Abnormal lab results WBC 16.0 K/mcL (4.3-11.1) H 05/21/17 03:00 RBC 3.61 M/mcL (4.19-5.50) L 05/21/17 03:00 Hgb 9.2 g/dL (12.9-16.9) L 05/21/17 03:00 Hct 29.6 % (37.5-50.1) L 05/21/17 03:00 MCV 82.0 fL (83.0-100.0) L 05/21/17 03:00 MCH 25.5 pg (28.0-33.3) L 05/21/17 03:00 MCHC 31.1 g/dL (31.6-35.5) L 05/21/17 03:00 RDW 15.0 % (11.5-14.5) H 05/21/17 03:00 Neutrophils # 14.1 K/mcL (1.6-8.9) H 05/21/17 03:00 Lymphocytes # 0.1 K/mcL (0.6-4.6) L 05/21/17 03:00 Nucleated RBCs/100 WBC 0.1 /100 WBC (0) H 05/21/17 03:00 Hypersegmented Neuts Present (Not Present) A 05/17/17 03:55 Large Platelets Present (Not Present) A 05/16/17 03:25 Hypochromasia Present (Not Present) A 05/20/17 03:31 Anisocytosis 1+ (Not Present) A 05/19/17 06:44 Macrocytosis Present (Not Present) A 05/19/17 06:44 ESR >= 130 mm/hr (0-10) H 05/13/17 13:03 VBG pH 7.46 pH Units (7.32-7.42) H 05/12/17 21:22 VBG pCO2 39 mmHg (41-51) L 05/12/17 21:22 VBG pO2 44 mmHg (25-40) H 05/12/17 21:22 VBG HCO3 27.7 mEq/L (21-27) H 05/12/17 21:22 BUN 94 mg/dL (8-26) H 05/21/17 03:00 Creatinine 1.47 mg/dL (0.72-1.25) H 05/21/17 03:00 Est GFR ( Amer) 55 (> 60) L 05/21/17 03:00 Est GFR (Non-Af Amer) 45 (> 60) L 05/21/17 03:00 BUN/Creatinine Ratio 64 (6-26) H 05/21/17 03:00 Glucose 159 mg/dL (70-99) H 05/21/17 03:00 POC Glucose 133 (58-89) H 05/14/17 11:06 Calculated Osmolality 316 (280-300) H 05/21/17 03:00 Calcium 8.4 mg/dL (8.6-10.8) L 05/21/17 03:00 Ionized Calcium 1.07 mmol/L (1.15-1.35) L 05/19/17 03:00 Phosphorus 5.6 mg/dL (2.3-4.7) H 05/19/17 03:00 Magnesium 3.3 mg/dL (1.6-2.6) H 05/21/17 03:00 C-Reactive Protein 41 mg/L (Less than 5) H 05/13/17 13:03 B-Natriuretic Peptide 362 pg/mL (0-100) H 05/12/17 18:52 Albumin 2.9 g/dL (3.5-5.0) L 05/14/17 04:17 Globulin 4.5 g/dL (2.4-3.5) H 05/14/17 04:17 Albumin/Globulin Ratio 0.6 (1.1-2.2) L 05/14/17 04:17 Urine Microscopic RBC 3-5 per hpf (0-3) H 05/14/17 21:35 Ur Squamous Epith Cells Moderate per lpf (None-Few) H 05/14/17 21:35 Fluid Appearance Cloudy (Clear) A 05/13/17 14:44 TIMOTHY Screen DETECTED (None Detected) A 05/13/17 13:03 TIMOTHY Titer 1:5120 (<1:40) H 05/13/17 13:03 - Microbiology Findings Microbiology Findings: Microbiology, Last 48 Hours 05/13/17 14:44 Acid Fast Stain - Final Right Upper Lobe Lung 05/13/17 14:44 Fungal Culture - Preliminary Right Upper Lobe Lung Oly albicans 05/13/17 14:44 Fungal Culture - Preliminary Left Upper Lobe Lung Oly albicans 05/14/17 17:02 Blood Culture - Final Peripheral Venipuncture No growth. 05/14/17 17:02 Blood Culture - Final Peripheral Venipuncture No growth. 05/13/17 14:44 Gram Stain - Final Left Upper Lobe Lung Respiratory Culture - Final Staphylococcus aureus Aerococcus viridans Streptococcus salivarius Rothia species Oly albicans 05/13/17 14:44 Respiratory Culture - Final Right Upper Lobe Lung Staphylococcus aureus Aerococcus viridans Streptococcus salivarius#2 Rothia species Oly albicans - Clinical Findings Intake & Output: Intake & Output 05/20/17 05/21/17 05/21/17 23:59 07:59 15:59 Output Total 200 / 200 200 / 200 Balance -200 / -200 -200 / -200 Weight 76 kg
--- NOTE | 2017-05-21 13:49 | Palliative Progress Note ---
Date of Encounter: 05/21/17 Time of Encounter: 13:00 - Assessment and plan (1) Dyspnea Current Visit: Yes Status: Acute Assessment and plan: Patient respirations improving. Patient on 3L NC. Continue steroids and supplemental oxygen. Qualifiers: Dyspnea type: dyspnea on exertion Qualified Code(s): R06.09 - Other forms of dyspnea (2) Goals of care, counseling/discussion Current Visit: Yes Status: Acute Assessment and plan: and daughter at bedside. Patient alert, oriented x 3. Follow-up on GOC discussion from yesterday with the PC team and Dr. Elizondo. Family and patient now desire for patient to go home with Hospice care. Discussed DME needs and explained Hospice care and quality of life goals. Patient desires to return home and be comfortable with his breathing. Patient now on 3L NC and tolerating well. and daughter agree to transition to comfort care and patient eager to go home. Called [facility] patients other daughter to plan DME delivery. She reports that they are preparing the home for DME and transition to home. Updated on Hosp[facility] plan with [facility] Ricky Oglesby. SS, called [place] to discuss patients transition home with hospice care. Discussed desires for advanced life support and mechanical ventilation. Patient reports that he doesn't desire CPR, Defibrillation, ACLS drugs or intubation. Goals are now for comfort care and will change Code Status to DNRCC- Comfort Care. [facility] updated by phone and agrees to POC. FMLA forms completed for [employer]. Will follow progress for home transition to hospice care. (3) Pulmonary fibrosis Current Visit: Yes Status: Suspected Assessment and plan: Transition to hospice care for comfort care with breathing. - Time Spent With Patient Total time spent is greater than 50% in coordination of care (as documented) at patient's floor/unit and/or counseling patient: 25 - 35 minutes - Subjective Interval history: Patient sitting up in bed. Dyspnic with conversation. Chart reviewed and case discussed with Dr. Grant. Patient denies pain but reports SOB. Currently on 3L NC and tolerating. and daughter Aislinn at bedside. - Constitutional Vitals: Abnormal lab results WBC 16.0 K/mcL (4.3-11.1) H 05/21/17 03:00 RBC 3.61 M/mcL (4.19-5.50) L 05/21/17 03:00 Hgb 9.2 g/dL (12.9-16.9) L 05/21/17 03:00 Hct 29.6 % (37.5-50.1) L 05/21/17 03:00 MCV 82.0 fL (83.0-100.0) L 05/21/17 03:00 MCH 25.5 pg (28.0-33.3) L 05/21/17 03:00 MCHC 31.1 g/dL (31.6-35.5) L 05/21/17 03:00 RDW 15.0 % (11.5-14.5) H 05/21/17 03:00 Neutrophils # 14.1 K/mcL (1.6-8.9) H 05/21/17 03:00 Lymphocytes # 0.1 K/mcL (0.6-4.6) L 05/21/17 03:00 Nucleated RBCs/100 WBC 0.1 /100 WBC (0) H 05/21/17 03:00 Hypersegmented Neuts Present (Not Present) A 05/17/17 03:55 Large Platelets Present (Not Present) A 05/16/17 03:25 Hypochromasia Present (Not Present) A 05/20/17 03:31 Anisocytosis 1+ (Not Present) A 05/19/17 06:44 Macrocytosis Present (Not Present) A 05/19/17 06:44 ESR >= 130 mm/hr (0-10) H 05/13/17 13:03 VBG pH 7.46 pH Units (7.32-7.42) H 05/12/17 21:22 VBG pCO2 39 mmHg (41-51) L 05/12/17 21:22 VBG pO2 44 mmHg (25-40) H 05/12/17 21:22 VBG HCO3 27.7 mEq/L (21-27) H 05/12/17 21:22 BUN 94 mg/dL (8-26) H 05/21/17 03:00 Creatinine 1.47 mg/dL (0.72-1.25) H 05/21/17 03:00 Est GFR ( Amer) 55 (> 60) L 05/21/17 03:00 Est GFR (Non-Af Amer) 45 (> 60) L 05/21/17 03:00 BUN/Creatinine Ratio 64 (6-26) H 05/21/17 03:00 Glucose 159 mg/dL (70-99) H 05/21/17 03:00 POC Glucose 133 (58-89) H 05/14/17 11:06 Calculated Osmolality 316 (280-300) H 05/21/17 03:00 Calcium 8.4 mg/dL (8.6-10.8) L 05/21/17 03:00 Ionized Calcium 1.07 mmol/L (1.15-1.35) L 05/19/17 03:00 Phosphorus 5.6 mg/dL (2.3-4.7) H 05/19/17 03:00 Magnesium 3.3 mg/dL (1.6-2.6) H 05/21/17 03:00 C-Reactive Protein 41 mg/L (Less than 5) H 05/13/17 13:03 B-Natriuretic Peptide 362 pg/mL (0-100) H 05/12/17 18:52 Albumin 2.9 g/dL (3.5-5.0) L 05/14/17 04:17 Globulin 4.5 g/dL (2.4-3.5) H 05/14/17 04:17 Albumin/Globulin Ratio 0.6 (1.1-2.2) L 05/14/17 04:17 Urine Microscopic RBC 3-5 per hpf (0-3) H 05/14/17 21:35 Ur Squamous Epith Cells Moderate per lpf (None-Few) H 05/14/17 21:35 Fluid Appearance Cloudy (Clear) A 05/13/17 14:44 TIMOTHY Screen DETECTED (None Detected) A 05/13/17 13:03 TIMOTHY Titer 1:5120 (<1:40) H 05/13/17 13:03 - Head Head exam: Present: atraumatic, normal inspection, normocephalic - Eye Eye exam: Present: PERRL Pupils: Present: PERRL - ENT ENT exam: Present: mucous membranes moist - Neck Neck exam: Present: full ROM - Respiratory Respiratory exam: Present: decreased breath sounds, wheezes Additional comments: Oxygen at 3L NC, Bipap at bedside if needed - Expanded Respiratory Exam Location: decreased breath sounds: Left, Right, Lower - Cardiovascular Cardiovascular exam: Present: RRR, +S1, +S2, tachycardia - GI/Abdominal GI/Abdominal exam: Present: normal bowel sounds, soft - Rectal Rectal exam: Present: deferred - Extremities Exam Extremities exam: Present: full ROM - Neurological Exam Neurological exam: Present: alert, CN II-XII intact, oriented X3 - Psychiatric Psychiatric exam: Present: normal affect - Skin Skin exam: Present: pallor, warm Palliative Quality Palliative Quality: Screen for Code Status: Yes, Screen for Goals of Care: Yes, Screen for Pain: Yes, If Pain Regimen Started, Initiate Bowel Regimen: NA, Screen for Nausea/Vomitting: Yes - Labs CBC & Chem 7: 05/21/17 03:00 05/21/17 03:00 Labs: Laboratory Results - last 24 hr 05/21/17 05/21/17 03:00 03:00 WBC 16.0 H RBC 3.61 L Hgb 9.2 L Hct 29.6 L MCV 82.0 L MCH 25.5 L MCHC 31.1 L RDW 15.0 H Plt Count 253 MPV 10.7 Immature Gran % 3.5 Seg Neutrophils % 88.0 Lymphocytes % 0.9 Monocytes % 7.4 Eosinophils % 0.0 Basophils % 0.2 Neutrophils # 14.1 H Lymphocytes # 0.1 L Monocytes # 1.2 Eosinophils # 0.0 Basophils # 0.0 Nucleated RBCs/100 WBC 0.1 H Platelet Estimate Normal Sodium 137 Potassium 4.4 Chloride 100 Carbon Dioxide 29 BUN 94 H Creatinine 1.47 H Est GFR ( Amer) 55 L Est GFR (Non-Af Amer) 45 L BUN/Creatinine Ratio 64 H Glucose 159 H Calculated Osmolality 316 H Calcium 8.4 L Magnesium 3.3 H - Impressions Impressions Chest CT 05/20/17 20:15 IMPRESSION: 1. Interval progression of diffuse ground-glass opacity and intralobular septal thickening throughout both lungs is most consistent with an acute interstitial process, most likely worsening interstitial pulmonary edema. 2. Slight interval increase in size of small bilateral pleural effusions, left greater than right. 3. 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 4. Cholelithiasis. 5. Stable age-indeterminate wedge compression fracture of T9. If there is a history of acute thoracic back pain, consider further evaluation of the acuity of this abnormality with a dedicated thoracic MRI. D/ / 05/20/2017 21:07:38 Paul Yen MD / zander Interpreting Provider: Paul Yen MD Consult Discharge Plan - Plan [facility]errals: [facility] [Primary Care Provider[facility] - 05/19/17 2:00 pm
[2017-05-21] MEDS ORDERED: Morphine Oral CONC 5 MG/0.25 ML ORAL.SYG PO PRN ×2 (14:08→15:59)
[2017-05-21] MEDS ORDERED: clonazePAM 0.5 MG TABLET PO PRN (15:59)
[2017-05-21] MEDS: Albuterol 2.5 MG/3 ML NEBULIZER IH PRN (20:24)
[2017-05-21] MEDS ORDERED: Latanoprost 2.5 ML BOTTLE BOTH EYES SCH (21:00)
[2017-05-22] MEDS: Albuterol 2.5 MG/3 ML NEBULIZER IH PRN ×3 (04:30→11:36)
[2017-05-22 07:12] VITALS: BP 131/73
[2017-05-22] MEDS: Budesonide/Formoterol 160/4.5 MDI IH SCH (07:46)
[2017-05-22] MEDS ORDERED: predniSONE 20 MG TABLET PO SCH (09:00)
--- NOTE | 2017-05-22 10:22 | Internal Med Progress Note ---
Date of Encounter: 05/22/17 Time of Encounter: 09:30 - Assessment and plan (1) Acute respiratory failure with hypoxia Current Visit: Yes Status: Acute Assessment and plan: Patient has underlying interstitial fibrotic changes in his lung. 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 -Patient has CT findings suggesting progressive massive fibrosis. -Patient's respiratory status symptoms have remained unchanged for the most part in the last several days. -His initial shortness of breath has resolved -Patient on 3L NC. -Patient's O2 saturations morning was 93. -Continue steroids and supplemental oxygen. (2) Pulmonary fibrosis Current Visit: Yes Status: Suspected Assessment and plan: Pulmonology has been consulted and is on board. Continue breathing treatments. (3) Protein-calorie malnutrition, moderate Current Visit: Yes Status: Acute (4) Leukocytosis Current Visit: Yes Status: Acute Assessment and plan: Patient's white blood cell count this morning was 16. Qualifiers: Leukocytosis type: unspecified Qualified Code(s): D72.829 - Elevated white blood cell count, unspecified - Subjective Interval history: Patient was seen and examined at bedside this morning. He states that his condition has remained relatively unchanged over the past couple days. He denies having significant shortness of breath that he had on admission. He currently denies having any chest pain, shortness of breath, nausea, vomiting, fever, chills. - Constitutional Vitals: Temp Pulse Resp BP Pulse Ox 97.6 F 89 22 131/73 93 05/22/17 07:05 05/22/17 07:05 05/22/17 07:45 05/22/17 07:05 05/22/17 07:45 General appearance: Present: A&O X 3, pleasant, severe distress, answers questions appropriately - Respiratory Respiratory exam: Present: rales, rhonchi, wheezes. Absent: CTAB Additional comments: Patient has profound rales, rhonchi, and expiratory wheezing. - Cardiovascular Cardiovascular exam: Present: RRR, +S1, +S2. Absent: diastolic murmur, gallop, rubs, systolic murmur - Psychiatric Psychiatric exam: Present: normal affect, normal mood Internal Medicine: Result - Labs CBC & Chem 7: 05/21/17 03:00 05/21/17 03:00 Consult Discharge Plan - Plan [facility]errals: [facility] [Primary Care Provider] - 05/19/17 2:00 pm
--- NOTE | 2017-05-22 11:03 | Discharge Summary ---
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 -Patient has CT findings suggesting progressive massive fibrosis. -Patient's respiratory status symptoms have remained unchanged for the most part in the last several days. -His initial shortness of breath has resolved -Patient on 3L NC. -Patient's O2 saturations morning was 93. -Continue steroids and supplemental oxygen. (2) Pulmonary fibrosis Priority: Secondary Status: Suspected Comments: Pulmonology has been consulted and is on board. Continue breathing treatments. (3) Protein-calorie malnutrition, moderate Priority: Secondary Status: Acute (4) Leukocytosis Priority: Secondary Status: Acute Comments: Patient's white blood cell count this morning was 16. Qualifiers: Leukocytosis type: unspecified Qualified Code(s): D72.829 - Elevated white blood cell count, unspecified - Discharge Medications Prescriptions: Albuterol Neb [Proventil Neb] 2.5 mg IH [id number] PRN #30 inh PRN Reason: Shortness Of Breath/Wheezing Ipratropium/Albuterol Neb [Duoneb] 3 ml IH Q6HR #30 vial.neb clonazePAM [Klonopin] 0.5 mg PO BID PRN #12 tablet PRN Reason: Anxiety Morphine Sulfate [Morphine Oral Solution] 5 ml PO Q4H PRN #30 ml PRN Reason: Pain predniSONE [PredniSONE] 40 mg PO DAILY #30 tab Zolpidem [Ambien] 5 mg PO HS #5 tablet Home Medications: Atorvastatin [Lipitor] 40 mg PO HS 05/12/17 [History] Latanoprost [Xalatan] 1 drop BOTH EYES HS 05/12/17 [History] NIFEdipine XL (24 HR) [Procardia XL] 30 mg PO DAILY 05/12/17 [History] Albuterol Neb [Proventil Neb] 2.5 mg IH [id number] PRN #30 inh 05/22/17 [Rx] Ipratropium/Albuterol Neb [Duoneb] 3 ml IH Q6HR #30 vial.neb 05/22/17 [Rx] Morphine Sulfate [Morphine Oral Solution] 5 ml PO Q4H PRN #30 ml 05/22/17 [Rx] Zolpidem [Ambien] 5 mg PO HS #5 tablet 05/22/17 [Rx] clonazePAM [Klonopin] 0.5 mg PO BID PRN #12 tablet 05/22/17 [Rx] predniSONE [PredniSONE] 40 mg PO DAILY #30 tab 05/22/17 [Rx] Allergies/Adverse Reactions: Allergies No Known Allergies Allergy (Verified 05/12/17 18:24) Procedures/tests Complete & Pending: Procedures Performed prior 72 hours Category Date Time Status CT chest w/o contrast [CT chest wo con] [CT] Routine Cat Scan 05/20/17 20:15 Completed Date of admission: 05/13/17 14:32 Primary care physician: PCP PRUDENCIO Consults: 05/14/17 08:57 Consult to Respiratory Therapy [CONS] Routine Reason for Consult: Acapella at bedside Time Notified: 08:57 Call Completed: Yes 05/19/17 10:32 Consult to Palliative Care [CONS] Routine Comment: Consulting Provider: Palliative Care Patti Reason for Consult: Pulm Fibrosis/possible need for hospice Call Completed: Yes Discharging clinician: Maxim Monet Anticipated date of discharge: 05/22/17 - Patient Status Disposition: Hospice - Home Condition: Fair Overall status at discharge: patient is progressing back to baseline - Discharge Instructions Follow Up With: PRUDENCIO,PCP [Primary Care Provider] - (will follow up with hospice ) Additional Instructions: Continue patient on oxygen and steroids. Administer morphine for shortness of breath and pain as needed and Ativan for shortness of breath as needed. - Diet and Activity Activity: increase activity as tolerated Diet: advance to your usual diet Hospital course: Mr. Read is a 87 year old male who was initially admitted to the hospitalist service for shortness of breath of 3 weeks duration. He also had a productive cough with rupa colored sputum. Patient has a history of extensive pulmonary fibrosis. 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 On 05/14/17, his respiratory status decreased. His oxygen saturation was noted to be in the 70s. He was placed on heliox via nonrebreather. He was still in significant respiratory distress so the decision was made to move the patient to ICU. Patient was tripoding and using accessory muscles to breathe. He appeared very anxious He did have rhonchorous breath sounds throughout. He was moved ICU to be placed on BiPAP. On BiPAP the patient's oxygen saturation remained in the mid 90s. Patient was given Versed and morphine to decrease his agitation. Chest x-ray was performed, and findings revealed the possibility of right-sided basilar pneumonia. His bronchoscopy showed normal respiratory jairon. Patient did have many gram- positive cocci and few gram-negative rods on Gram stain. We are culturing the respiratory specimen. Patient was given Zosyn and Levaquin for this. Patient also received Solu-Medrol 80 mg every 8 hrs. Patient was then started on high flow nasal cannula. Palliative care was consulted. He was monitored in the ICU. Patient was diuresed during his visit in the hospital. On physical examination on the date of discharge, patient states that his respiratory distress has not worsened. He states that his condition has remained relatively stable after he recovered from his initial shortness of breath. This morning, he denies having fever, chills, shortness of breath, chest pain, nausea, vomiting. The plan for this patient is for the patient to go home with hospice care. Hospice care and quality of life goals have been discussed. - Time Spent with Patient Total time spent providing and/or coordinating discharge services: Greater than 30 minutes (40 minutes) - Constitutional Vitals: Temp Pulse Resp BP Pulse Ox 97.6 F 89 22 131/73 93 05/22/17 07:05 05/22/17 07:05 05/22/17 07:45 05/22/17 07:05 05/22/17 07:45 General appearance: Present: A&O X 3, pleasant, severe distress, answers questions appropriately - ENT ENT exam: Present: mucous membranes dry. Absent: mucous membranes moist - Neck Neck exam general surgery: Present: supple, trachea midline. Absent: lymphadenopathy - Respiratory Respiratory exam: Present: rales, rhonchi, wheezes. Absent: CTAB Additional comments: Profound expiratory wheezes, rales, and rhonchi present bilaterally. - Cardiovascular Cardiovascular exam: Present: RRR, +S1, +S2. Absent: diastolic murmur, gallop, rubs, systolic murmur <Efrain Banegas - Last Filed: 05/22/17 11:34> Date of Encounter: 05/22/17 Procedures/tests Complete & Pending: Procedures Performed prior 72 hours Category Date Time Status CT chest w/o contrast [CT chest wo con] [CT] Routine Cat Scan 05/20/17 20:15 Completed Date of admission: 05/13/17 14:32 Primary care physician: PCP PRUDENCIO Consults: 05/14/17 08:57 Consult to Respiratory Therapy [CONS] Routine Reason for Consult: Acapella at bedside Time Notified: 08:57 Call Completed: Yes 05/19/17 10:32 Consult to Palliative Care [CONS] Routine Comment: Consulting Provider: Palliative Care Jackson Reason for Consult: Pulm Fibrosis/possible need for hospice Call Completed: Yes Hospital course: Mr. Read is a 87 year old male - Time Spent with Patient Total time spent providing and/or coordinating discharge services: - Constitutional Vitals: Temp Pulse Resp BP Pulse Ox 97.6 F 89 22 131/73 93 05/22/17 07:05 05/22/17 07:05 05/22/17 07:45 05/22/17 07:05 05/22/17 07:45 - Attending Attestation Stable to be discharged. I examined this patient and my medical decision-making was reviewed with the Resident Physician. I agree with the documented findings, disposition and treatment plan as described except to the extent set forth below.
--- NOTE | 2017-05-22 11:20 | Palliative Progress Note ---
Date of Encounter: 05/22/17 Time of Encounter: 11:00 - Assessment and plan (1) Dyspnea Current Visit: Yes Status: Acute Assessment and plan: Patient respirations improving. Patient on 3L NC. Continue steroids and supplemental oxygen. Qualifiers: Qualified Code(s): R06.09 - Other forms of dyspnea (2) Goals of care, counseling/discussion Current Visit: Yes Status: Acute Assessment and plan: Patient to transition home with [facility] care. DME being delivered today. Medication review and prescriptions for comfort medications completed. Case discussed with Hospitalist and plan for DC. [facility] is ready at home for patient to transition. FMLA forms completed for [employer]. Plan is for patient to DC home once all DME is in place. Patient DNRCC-Comfort Care. State form completed and send in packet. (3) Pulmonary fibrosis Current Visit: Yes Status: Suspected Assessment and plan: Transition to hospice care for comfort care with breathing. - Time Spent With Patient Total time spent is greater than 50% in coordination of care (as documented) at patient's floor/unit and/or counseling patient: 25 - 35 minutes - Subjective Interval history: Patient sitting up in bed. Dyspnea with conversation. Patient denies complaints of pain. - Constitutional Vitals: Abnormal lab results WBC 16.0 K/mcL (4.3-11.1) H 05/21/17 03:00 RBC 3.61 M/mcL (4.19-5.50) L 05/21/17 03:00 Hgb 9.2 g/dL (12.9-16.9) L 05/21/17 03:00 Hct 29.6 % (37.5-50.1) L 05/21/17 03:00 MCV 82.0 fL (83.0-100.0) L 05/21/17 03:00 MCH 25.5 pg (28.0-33.3) L 05/21/17 03:00 MCHC 31.1 g/dL (31.6-35.5) L 05/21/17 03:00 RDW 15.0 % (11.5-14.5) H 05/21/17 03:00 Neutrophils # 14.1 K/mcL (1.6-8.9) H 05/21/17 03:00 Lymphocytes # 0.1 K/mcL (0.6-4.6) L 05/21/17 03:00 Nucleated RBCs/100 WBC 0.1 /100 WBC (0) H 05/21/17 03:00 Hypersegmented Neuts Present (Not Present) A 05/17/17 03:55 Large Platelets Present (Not Present) A 05/16/17 03:25 Hypochromasia Present (Not Present) A 05/20/17 03:31 Anisocytosis 1+ (Not Present) A 05/19/17 06:44 Macrocytosis Present (Not Present) A 05/19/17 06:44 ESR >= 130 mm/hr (0-10) H 05/13/17 13:03 VBG pH 7.46 pH Units (7.32-7.42) H 05/12/17 21:22 VBG pCO2 39 mmHg (41-51) L 05/12/17 21:22 VBG pO2 44 mmHg (25-40) H 05/12/17 21:22 VBG HCO3 27.7 mEq/L (21-27) H 05/12/17 21:22 BUN 94 mg/dL (8-26) H 05/21/17 03:00 Creatinine 1.47 mg/dL (0.72-1.25) H 05/21/17 03:00 Est GFR ( Amer) 55 (> 60) L 05/21/17 03:00 Est GFR (Non-Af Amer) 45 (> 60) L 05/21/17 03:00 BUN/Creatinine Ratio 64 (6-26) H 05/21/17 03:00 Glucose 159 mg/dL (70-99) H 05/21/17 03:00 POC Glucose 133 (58-89) H 05/14/17 11:06 Calculated Osmolality 316 (280-300) H 05/21/17 03:00 Calcium 8.4 mg/dL (8.6-10.8) L 05/21/17 03:00 Ionized Calcium 1.07 mmol/L (1.15-1.35) L 05/19/17 03:00 Phosphorus 5.6 mg/dL (2.3-4.7) H 05/19/17 03:00 Magnesium 3.3 mg/dL (1.6-2.6) H 05/21/17 03:00 C-Reactive Protein 41 mg/L (Less than 5) H 05/13/17 13:03 B-Natriuretic Peptide 362 pg/mL (0-100) H 05/12/17 18:52 Albumin 2.9 g/dL (3.5-5.0) L 05/14/17 04:17 Globulin 4.5 g/dL (2.4-3.5) H 05/14/17 04:17 Albumin/Globulin Ratio 0.6 (1.1-2.2) L 05/14/17 04:17 Urine Microscopic RBC 3-5 per hpf (0-3) H 05/14/17 21:35 Ur Squamous Epith Cells Moderate per lpf (None-Few) H 05/14/17 21:35 Fluid Appearance Cloudy (Clear) A 05/13/17 14:44 TIMOTHY Screen DETECTED (None Detected) A 05/13/17 13:03 TIMOTHY Titer 1:5120 (<1:40) H 05/13/17 13:03 - Head Head exam: Present: atraumatic, normal inspection, normocephalic - Eye Eye exam: Present: PERRL Pupils: Present: PERRL - ENT ENT exam: Present: mucous membranes moist - Neck Neck exam: Present: full ROM - Respiratory Respiratory exam: Present: decreased breath sounds, wheezes - Cardiovascular Cardiovascular exam: Present: RRR, +S1, +S2, tachycardia - GI/Abdominal GI/Abdominal exam: Present: normal bowel sounds, soft - Rectal Rectal exam: Present: deferred - Extremities Exam Extremities exam: Present: full ROM - Back Exam Back exam: Present: full ROM - Neurological Exam Neurological exam: Present: alert, oriented X3 - Psychiatric Psychiatric exam: Present: normal affect - Skin Skin exam: Present: pallor, warm Palliative Quality Palliative Quality: Screen for Code Status: Yes, Screen for Goals of Care: Yes, Screen for Pain: Yes, If Pain Regimen Started, Initiate Bowel Regimen: NA, Screen for Nausea/Vomitting: Yes Code Status: 05/21/17 14:06 DNR [Resuscitation Status: Active] [RES] Routine Comment: Resuscitation Status: DNR-Comfort Care - Labs CBC & Chem 7: 05/21/17 03:00 05/21/17 03:00 Consult Discharge Plan - Plan Additional Instructions: Continue patient on oxygen and steroids. [facility]errals: [facility] [Primary Care Provider[facility] - (will follow up with hospice ) Prescriptions: Albuterol Neb [Proventil Neb] 2.5 mg IH [id number] PRN #30 inh PRN Reason: Shortness Of Breath/Wheezing Ipratropium/Albuterol Neb [Duoneb] 3 ml IH Q6HR #30 vial.neb clonazePAM [Klonopin] 0.5 mg PO BID PRN #12 tablet PRN Reason: Anxiety Morphine Sulfate [Morphine Oral Solution] 5 ml PO Q4H PRN #30 ml PRN Reason: Pain predniSONE [PredniSONE] 40 mg PO DAILY #30 tab Zolpidem [Ambien] 5 mg PO HS #5 tablet
--- NOTE | 2017-05-22 11:38 | Physician Discharge Referral ---
<Maxim Monet - Last Filed: 05/22/17 11:35> Home Health/Hosp Referral Info Transfer to: Hospice ([place]) Provider in Charge Post Discharge: Human Relations Manager - Diagnosis (1) Acute respiratory failure with hypoxia Priority: Primary Status: Acute (2) Pulmonary fibrosis Priority: Secondary Status: Suspected (3) Protein-calorie malnutrition, moderate Priority: Secondary Status: Acute (4) Leukocytosis Priority: Secondary Status: Acute - Respiratory Orders Oxygen / L per min (3L) Smoking Cessation: Smoking cessation has been advised. For more information, call the [place] Tobacco Quit Line at 6-373-JUSD-NOW. - Diet/Nutrition Diet/Nutrition Orders: Regular - Activity Activity Orders: Bedrest - Transfer Medications Prescriptions: Albuterol Neb [Proventil Neb] 2.5 mg IH [id number] PRN #30 inh PRN Reason: Shortness Of Breath/Wheezing Ipratropium/Albuterol Neb [Duoneb] 3 ml IH Q6HR #30 vial.neb clonazePAM [Klonopin] 0.5 mg PO BID PRN #12 tablet PRN Reason: Anxiety Morphine Sulfate [Morphine Oral Solution] 5 ml PO Q4H PRN #30 ml PRN Reason: Pain predniSONE [PredniSONE] 40 mg PO DAILY #30 tab Zolpidem [Ambien] 5 mg PO HS #5 tablet Home Medications: Latanoprost [Xalatan] 1 drop BOTH EYES HS 05/12/17 [History] Albuterol Neb [Proventil Neb] 2.5 mg IH [id number] PRN #30 inh 05/22/17 [Rx] Ipratropium/Albuterol Neb [Duoneb] 3 ml IH Q6HR #30 vial.neb 05/22/17 [Rx] Morphine Sulfate [Morphine Oral Solution] 5 ml PO Q4H PRN #30 ml 05/22/17 [Rx] Zolpidem [Ambien] 5 mg PO HS #5 tablet 05/22/17 [Rx] clonazePAM [Klonopin] 0.5 mg PO BID PRN #12 tablet 05/22/17 [Rx] predniSONE [PredniSONE] 40 mg PO DAILY #30 tab 05/22/17 [Rx] Allergies/Adverse Reactions: Allergies No Known Allergies Allergy (Verified 05/12/17 18:24) Certification: Further, I certify that my clinical findings support that this patient is homebound (i.e. absences from home require considerable and taxing effort and are for medical reasons or islam services or infrequently or short duration when for other reasons) because: Homebound Reason: Severity of cardiac or pulmonary status limits activity tolerance Attestation: My signature below is to certify that this patient is under my care and that I, or nurse practitioner, or a physician's railways assistant working with me, has a face-to -face encounter with this patient. <Efrain Banegas - Last Filed: 05/22/17 11:39> - Respiratory Orders Smoking Cessation: Smoking cessation has been advised. For more information, call the [place] Tobacco Quit Line at 5-642-NJNRNOW. Certification: Further, I certify that my clinical findings support that this patient is homebound (i.e. absences from home require considerable and taxing effort and are for medical reasons or islam services or infrequently or short duration when for other reasons) because: Attestation: My signature below is to certify that this patient is under my care and that I, or nurse practitioner, or a physician's railways assistant working with me, has a face-to -face encounter with this patient. Ok to discharge I examined this patient and my medical decision-making was reviewed with the Resident Physician. I agree with the documented findings, disposition and treatment plan as described except to the extent set forth below.
== END 2017-05-22 13:00 | disposition hospice, home (50) | DRG 853 ==
LOC: 2NENU 18:18 → EMEROO 18:18 → 2NENU 23:05 → SUATTDRO 05-13 14:32 → ICNU 05-14 11:03 → 2ANU 05-21 16:32
PROVIDERS: ADMIT Internal Medicine Sleep Medicine; ATTEND Internal Medicine